=== PATIENT | male | born 1950 | race Caucasian/White ===

== ENCOUNTER 2019-05-21 07:00 | Outpatient (CLI) | payer MEDICARE, SELFPAY ==
--- NOTE | 2019-05-21 13:47 | SUR.OPER ---
Patient brought to GI Lab. Instructions for patient undergoing Capsule Endoscopy reviewed with patient. Consent form signed. Sensor array applied to patient's abdomen and connected to recorded. Patient swallowed capsule with 12 ozs of water infused with Simethicone. Patient instructed they may have clear liquids at 0830 this AM and eat or drink at 1030 this AM. Patient instructed to return to GI Lab at 1500 this afternoon for removal of recording device and to call [phone] or to return to the hospital if any nausea and vomiting or abdominal pain is experienced.
--- NOTE | 2019-05-21 15:10 | SUR.OPER ---
Patient arrived to GI lab at 1500 with belt on side of hip. Asked patient if the belt was around his abdomen during the day, and patients states he doesn't know, he states he had no questions.
== END 2019-05-21 07:01 | disposition home or self-care (01) ==
PROVIDERS: PCP Internal Medicine; Visit Provider Internal Medicine Gastroenterology
PROC: 0DJ07ZZ Inspection of Upper Intestinal Tract, Via Natural or Artificial Opening (ICD-10-PCS; CPT 91110; principal; 2019-05-21 07:00)
DX: D50.9 Iron deficiency anemia, unspecified (principal)
CPT/HCPCS: 91110

== ENCOUNTER → 2019-09-05 07:35 | Outpatient (CLI) | payer MEDICARE, SELFPAY ==
--- NOTE | ~2019-09-05 | MR_ITS ---
EXAMINATION: MR forearm RT wo con DATE: 09/05/2019 08:48 INDICATION: Right forearm pain. Radial nerve lesion. Soft tissue abnormality. TECHNIQUE: Magnetic resonance imaging (MRI) of the right forearm was performed without intravenous co ntrast. Sequences included sagittal and coronal T1-weighted FSE and STIR FSE and axial T1-weighted FS E and T2-weighted FS FSE. COMPARISON: Right forearm MRI 08/03/2015, right elbow radiographs 08/26/2019 FINDINGS: Bone alignment is normal. No fracture. There is a skin marker at the dorsal radial aspect o f the proximal forearm. Brachialis tendon is normal. There is moderate biceps tendinopathy. There is an enthesophyte at the radial attachment. There is moderate bicipitoradial bursitis. The common flexo r tendon and common extensor tendon are normal, but sensitivity is decreased by the large field-of-vi ew. The muscles demonstrate normal signal intensity. There is no elbow joint effusion. IMPRESSION: 1. Moderate biceps tendinopathy. 2. Moderate bicipitoradial bursitis. Reviewed, dictated and finalized at location A.
== END ==
PROVIDERS: PCP Internal Medicine; Visit Provider Orthopaedic Surgery
DX: G56.31 Lesion of radial nerve, right upper limb (principal); M75.21 Bicipital tendinitis, right shoulder
CPT/HCPCS: 73218

== ENCOUNTER 2020-01-29 09:56 | Outpatient (CLI) | payer MEDICARE, SELFPAY ==
[2020-01-29 10:30] LABS: Basophils Percent Auto 0.2 % (0.2-1.2); Eosinophils Percent Auto 0.1 % (0-4.4); Hematocrit 43.9 % (42.0-52.0); Hemoglobin 14.6 g/dL (14.0-18.0); Immature Granulocyte Absolute 0.21 K/mm3 (0.00-0.031); Immature Granulocyte Percent A 0.9 % (0-0.5); Lymphocytes Absolute Auto 1.39 K/mm3 (0.9-3.2); Lymphocytes Percent Auto 5.8 % (18.3-44.2); Mean Corpuscular HGB Conc 33.3 g/dl (32-36); Mean Corpuscular Hemoglobin 31.3 pg (26-34); Mean Platelet Volume 9.8 fl (7.4-10.4); Monocytes Absolute Auto 1.6 K/mm3 (0.1-0.6); Monocytes Percent Auto 6.6 % (2.6-8.5); Neutrophils Absolute Auto 20.9 K/mm3 (1.3-6.7); Neutrophils Percent Auto 86.4 % (45.5-73.1); Platelet Count Result 260 k/mm3 (150-375); Red Blood Count 4.67 M/mm3 (4.6-6.20); Red Cell Distribution Width 13.8 % (11.5-14.5); White Blood Count 24.1 K/mm3 (4.5-10.0)
[2020-01-29 15:30] LABS: Iron 95 ug/dL (49-181)
[2020-01-29 15:38] LABS: Alanine Aminotransferase 27 U/L (4-50); Albumin Level 3.9 g/dL (3.5-5.1); Alkaline Phosphatase 110 U/L (38-126); Anion Gap 13.3 mmol/L (7-16); Aspartate Amino Transferase 21 U/L (17-59); Bilirubin,Total 1.1 mg/dL (0.2-1.3); Blood Urea Nitrogen 27 mg/dL (9-20); Calcium 9.1 mg/dL (8.4-10.2); Carbon Dioxide 25 mmol/L (22-30); Chloride 103 mmol/L (98-107); Estimated Glomerular Filt Rate 60; Glucose 114 mg/dL (75-110); Potassium 4.3 mmol/L (3.4-5.0); Sodium 137 mmol/L (137-145)
[2020-01-29 15:39] LABS: Percent Iron Saturation 28 % (20-50)
[2020-01-29 16:33] LABS: Folic Acid 17.5 ng/mL (2.76->20)
== END 2020-01-29 09:57 | disposition home or self-care (01) ==
PROVIDERS: PCP Internal Medicine; Visit Provider Internal Medicine Hematology & Oncology
DX: D50.9 Iron deficiency anemia, unspecified (principal)
CPT/HCPCS: 36415; 80053; 82607; 82728; 82746; 83540; 83550; 85025

== ENCOUNTER 2020-04-04 01:16 | Outpatient (CLI) | payer MEDICARE, SELFPAY ==
[2020-04-04 18:11] LABS: SARS-CoV-2 RNA PCR Negative
== END 2020-04-04 01:17 | disposition home or self-care (01) ==
LOC: ANHCOVIDDT 01:16
PROVIDERS: PCP Internal Medicine; Visit Provider Orthopaedic Surgery
DX: Z01.812 Encounter for preprocedural laboratory examination (principal); Z20.828 Contact with and (suspected) exposure to other viral communicable diseases
CPT/HCPCS: 87635; C9803; U0003

== ENCOUNTER 2020-04-04 09:31 | Outpatient (CLI) | payer MEDICARE, SELFPAY ==
--- NOTE | 2020-04-04 09:35 | ECG_ITS ---
Measurements Intervals [place] Rate: 73 P: 30 MA: 196 QRS: -38 QRSD: 100 T: -6 QT: 374 QTc: 413 Interpretive Statements SINUS RHYTHM LEFT AXIS DEVIATION VOLTAGE CRITERIA FOR LVH BORDERLINE R WAVE PROGRESSION, ANTERIOR LEADS BORDERLINE T WAVE ABNORMALITY- INFERIOR LEADS BORDERLINE ECG Electronically Signed On 04-04-2020 10:21:40 CDT by Thuan Arceo D.O.
[2020-04-04 10:20] LABS: Hematocrit 35.3 % (42.0-52.0); Hemoglobin 11.9 g/dL (14.0-18.0)
[2020-04-04 10:30] LABS: Anion Gap 6 mmol/L (8-16); Blood Urea Nitrogen 15 mg/dL (9-20); Carbon Dioxide 29 mmol/L (22-30); Chloride 105 mmol/L (98-107); Estimated Glomerular Filt Rate 40; Glucose 105 mg/dL (75-110); Potassium 4.3 mmol/L (3.4-5.0); Sodium 140 mmol/L (137-145)
== END 2020-04-04 09:32 | disposition home or self-care (01) ==
PROVIDERS: Anesthesiology; PCP Internal Medicine; Visit Provider Orthopaedic Surgery
DX: Z01.818 Encounter for other preprocedural examination (principal); I10 Essential (primary) hypertension; N18.6 End stage renal disease; D50.9 Iron deficiency anemia, unspecified
CPT/HCPCS: 36415; 80048; 85014; 85018; 93005

== ENCOUNTER 2020-04-06 02:33 | Day surgery (SDC) | payer MEDICARE, SELFPAY ==
[2020-03-30 11:24] VITALS: BMI 25.4
[2020-04-06] VITALS (9 sets, daily range): BP systolic 103–142; BP diastolic 62–93; PULSE 74–89; RESP 13–22; TEMP 36.3–36.9; O2SAT 94–100; BMI 26.0
--- NOTE | 2020-04-06 07:27 | WPDHPUPDATE1 ---
History and Physical Update Update Date/Time: 04/06/20 07:27 History and Physical has been reviewed, including an updated exam of the patient. There are NO changes in the patient's condition. Risks, benefits, and alternatives have been discussed and questions answered. Patient agrees to proceed with procedure.
--- NOTE | 2020-04-06 07:35 | SUR.PREOP ---
9925; SPOKE TO DR ANG. DO NOT GIVE TYLENOL NOR CELEBREX TO PT DUE TO RENAL DISEASE.
[2020-04-06] MEDS: LACTATED RINGERS 1,000 ML 30 ML IV CONT ×2 (07:48→10:26)
--- NOTE | 2020-04-06 07:55 | WPDANESEPPF ---
Anes - Initial Pre Proc Eval Procedure: Operation Date: 04/06/20 09:00 Proposed Procedures p Right Knee Arthroscopy, Proceed As Indicated - Celestine Brown MD Date/Time: 04/06/20 07:55 Surgeon: Celestine Brown MD Pre Op Diagnosis: right medial meniscus tear, mild knee DJD Patient Data Age: 69 Gender: M Height: 5 ft 7 in Weight: 73.63 kg Allergies Allergy/AdvReac Type Severity Reaction Status Date / Time No Known Allergies Allergy Verified 04/06/20 07:32 Home Medications Medication Instructions Recorded Confirmed Type albuterol sulfate [Ventolin HFA] 1 - 2 puff INHALATION QID PRN 05/07/19 04/06/20 History ascorbic acid (vitamin C) [Vitamin 500 mg PO DAILY 05/07/19 04/06/20 History C] atorvastatin 40 mg PO DAILY 05/07/19 04/06/20 History cholecalciferol (vitamin D3) 25 mcg PO DAILY 05/07/19 04/06/20 History [Vitamin D3] clopidogrel [Plavix] 75 mg PO DAILY 05/07/19 04/06/20 History cyanocobalamin (vitamin B-12) 1,000 mcg PO DAILY 05/07/19 04/06/20 History [Vitamin B-12] ferrous sulfate [Iron (ferrous 325 mg PO BID 05/07/19 04/06/20 History sulfate)] folic acid 1 mg PO DAILY 05/07/19 04/06/20 History levothyroxine [Synthroid] 75 mcg PO DAILY 05/07/19 04/06/20 History magnesium 250 mg PO DAILY 05/07/19 04/06/20 History omega 8-fkh-shd-fish oil [Fish Oil] 1 cap PO DAILY 05/07/19 04/06/20 History pantoprazole [Protonix] 20 mg PO BID 05/07/19 04/06/20 History pregabalin [Lyrica] 75 mg PO BID 05/07/19 04/06/20 History budesonide-formoterol [Symbicort] 2 inh INHALATION BID 07/21/19 04/06/20 History chlorhexidine gluconate 4 % 1 applic TOPICAL ONCE #237 ml 03/29/20 03/30/20 Rx topical liquid Patient hx anesthesia problems: none Family hx anesthesia problems: none PMFSH Past Medical History Medical History Biceps tendonitis on right COPD (chronic obstructive pulmonary disease) Diabetes mellitus End stage renal disease GERD (gastroesophageal reflux disease) High cholesterol Hypertension ERMELINDA (iron deficiency anemia) Mass of right forearm Pneumonia Radial tunnel syndrome of right upper extremity Rotator cuff tear arthropathy Stomach ulcer TIA (transient ischemic attack) Surgical History Surgical History History of esophagectomy Family History Family History Other Family history of cardiovascular disease Family history of malignant neoplasm Hypertension Social History Social History Smoking status: Former smoker Smoking end date: 07/01/90 Additional smoking assessment comments: STATES HX OF 4PK/DAY - QUITE 07/11/1999 Alcohol intake: never Substance use: never Living arrangements: with family Gender identity (if verbalized by the patient): Male Spiritual care concerns: No Anes - Eval Final PreProcedure Day of Procedure 04/06/20 07:55 Patient weight: overweight Heart: regular rate and rhythm Lungs: clear to auscultation Airway: Mallampati scale class II Neurological: alert and oriented Last oral intake: >/= 8 hours ASA classification: III Emergent: no Anesthetic plan: proceed Anesthesia type and monitoring: general ETT and standard monitoring Informed Consent: The patient's anesthetic plan and its attendant risks and benefits were discussed with the patient/family/POA. Questions were solicited and answers provided to the satisfaction of the patient/family/POA.
[2020-04-06] MEDS: ceFAZolin 2 GM/D5W 50 ML 2 GM/50 ML BAG IVPB (09:00)
--- NOTE | 2020-04-06 10:26 | PM.PROC ---
Procedure Note - Detailed Date of procedure: 04/06/20 Pre-op diagnosis: right medial meniscus tear, mild knee DJD Post-op diagnosis: other (medial meniscus tear, lateral meniscus tear, chondromalacia, synovitis) Procedure performed: RIGHT KNEE SCOPE WITH PARTIAL MEDIAL MENISCECTOMY AND MAJOR SYNEVECTOMY Description of procedure: PATIENT WAS TAKEN TO THE OR. THE RIGHT LEG WAS PREPPED AND DRAPED STERILE. TROCARS WERE PLACED IN THE USUAL FASHION. CAMERA WAS INTRODUCED. THERE WAS CHONDROMALACIA TO THE PATELLA FEMORAL JOINT. THERE WAS A LOT OF SYNOVITIS IN ALL COMPARTMENTS. THE MEDIAL COMPARTMENT SHOWED CHONDROMALACIA TO THE MED FEMORAL CONDYLE. A SHAVER WAS USED TO PREFORM A CHONDROPLASTY. THERE WAS A COMPLEX MEDIAL MENISCUS TEAR. THE TEAR EXTENDED FROM THE MENISCAL ROOT TO THE POSTERIOR HORN MAIN BODY. THE TEAR WAS RESECTED WITH A BITER AND A SHAVER DOWN TO A SMOOTH BASE. ABOUT 25% OF THE MENISCUS WAS REMOVED. THE ACL WAS INTACT. THE LATERAL MENISCUS WAS NOT TORN. THE LAT COMPARTMENT HAD NO SIGNIFICANT CHONDROMALACIA. THE PATELLO FEMORAL JOINT UNDERWENT CHONDROPLASTY. THERE WAS GRADE 3 CHONDROMALACIA IN MOST OF THE TROCHLEA AND PART OF THE PATELLA. THERE WAS AN AREA OF FULL THICKNESS CARTILAGE DEFECT. SYNOVECTOMY WAS PREFORMED IN THE SUPERIOR MEDIAL COMPARTMENT AND IN HOFFA'S SYNOVIUM. THE PATELLA TRACKED NORMALLY WITHIN THE TROCHLEA. THE WOUNDS WERE APPROXIMATED WITH 4.0 NYLON. STERILE DRESSING WAS APPLIED. PATIENT WAS EXTUBATED. Anesthesia: GLMA Surgeon: Celestine Brown MD Estimated blood loss (mL): 5 Complications: No immediate complications Condition: stable Disposition: PACU
[2020-04-06] MEDS: fentaNYL CITRATE INJ (*CRX) 100 MCG/2 ML VIAL 25 MCG IV PUSH ×10 (10:45→11:06)
[2020-04-06] MEDS: ONDANSETRON INJ 4 MG/2 ML VIAL IV PUSH (11:31)
== END 2020-04-06 12:40 | disposition home or self-care (01) ==
PROVIDERS: PCP Internal Medicine; Visit Provider Orthopaedic Surgery
PROC: (CPT 29870; principal; 2020-04-06 09:00)
DX: S83.231A Complex tear of medial meniscus, current injury, right knee, initial encounter (principal); W17.89XA Other fall from one level to another, initial encounter; M65.861 Other synovitis and tenosynovitis, right lower leg; M94.261 Chondromalacia, right knee; M17.11 Unilateral primary osteoarthritis, right knee; I12.0 Hypertensive chronic kidney disease with stage 5 chronic kidney disease or end stage renal disease; E11.22 Type 2 diabetes mellitus with diabetic chronic kidney disease; N18.6 End stage renal disease; J44.9 Chronic obstructive pulmonary disease, unspecified; E78.00 Pure hypercholesterolemia, unspecified; K21.9 Gastro-esophageal reflux disease without esophagitis; D50.9 Iron deficiency anemia, unspecified; Z86.73 Personal history of transient ischemic attack (TIA), and cerebral infarction without residual deficits; Z87.891 Personal history of nicotine dependence; Z79.02 Long term (current) use of antithrombotics/antiplatelets
CPT/HCPCS: 29881; 29876; 36415; 80048; 85014; 85018; 87635; 93005; C9803; J0330; J0690; J2370; J2405; J2704; J3010; J7120; U0003

== ENCOUNTER → 2020-05-07 09:11 | Outpatient (CLI) | payer MEDICARE, SELFPAY ==
--- NOTE | ~2020-05-07 | MR_ITS ---
EXAMINATION: MR knee RT wo con DATE: 05/07/2020 10:15 INDICATION: Right knee pain. TECHNIQUE: Magnetic resonance imaging (MRI) of the right knee was performed without intravenous contr ast. Sequences included axial PD-weighted FS FSE, coronal PD-weighted FSE and PD-weighted FS FSE, sag ittal PD-weighted FSE, and sagittal T2-weighted FS FSE. COMPARISON: Right knee radiographs 05/05/2020 FINDINGS: Medial compartment: There is maceration body and posterior horn of medial meniscus. There is full-thickness cartilage los s of tibial condyle involving the central and medial articular surface with moderate subchondral uli a-like signal intensity and subchondral cysts. There is full thickness cartilage loss of femoral cond yle involving the central, medial, and posterior articular surface with cortical remodeling and moder ate subchondral edema-like marrow signal intensity. Osteophytes are noted. Lateral compartment: Meniscus is normal. There is cartilage surface irregularity of femoral condyle and tibial condyle. Th ere is shallow partial-thickness cartilage loss of tibial condyle posteriorly. Patellofemoral compartment: There is deep partial thickness cartilage loss of patellar medial and lateral facets with minimal sub chondral edema-like marrow signal intensity. There is deep partial thickness cartilage loss of centra l trochlea. Ligaments and tendons: The anterior and posterior cruciate ligaments are intact. There are changes of prior sprains of media l collateral ligament and fibular collateral ligament characterized by increased signal intensity. Th ere is a partial tear of semimembranosus tendon with adjacent small hematoma. There is mild patellar tendinopathy. Fluid: There is a large heterogeneous knee joint effusion. There is trace fluid in a Fernández's cyst. There is edema about the knee. There is moderate prepatellar and superficial infrapatellar bursitis. IMPRESSION: 1. Severe chondrosis of medial compartment, moderate chondrosis of patellofemoral compartment, and mi ld chondrosis of lateral compartment. 2. Maceration of medial meniscus. 3. Large heterogeneous knee joint effusion. 4. Partial tear of semimembranosus tendon with adjacent small hematoma. Reviewed, dictated and finalized at location A. ER IMPRESSION: 1. Severe chondrosis of medial compartment, moderate chondrosis of patellofemor al compartment, and mild chondrosis of lateral compartment. 2. Maceration of medial meniscus. 3. Large heterogeneous knee joint effusion. 4. Partial tear of semimembranosus tendon with adjacent small hematoma.
== END ==
PROVIDERS: PCP Internal Medicine; Visit Provider Nurse Practitioner Family
DX: M25.461 Effusion, right knee (principal)
CPT/HCPCS: 73721

== ENCOUNTER 2020-06-20 10:25 | Outpatient (CLI) | payer MEDICARE, SELFPAY ==
[2020-06-20 11:08] LABS: SARS-CoV-2 Ag Negative (Negative)
== END 2020-06-20 10:26 | disposition home or self-care (01) ==
LOC: CHSLAB 10:32
PROVIDERS: PCP Internal Medicine; Visit Provider Internal Medicine
DX: R50.9 Fever, unspecified (principal); R06.02 Shortness of breath; Z20.828 Contact with and (suspected) exposure to other viral communicable diseases
CPT/HCPCS: 87426

== ENCOUNTER 2020-08-08 11:46 | Outpatient (CLI) | payer MEDICARE, SELFPAY ==
[2020-08-08 12:14] LABS: Basophils Percent Auto 0.2 % (0.2-1.2); Eosinophils Absolute Auto 0.1 K/mm3 (0-0.3); Eosinophils Percent Auto 0.8 % (0-4.4); Hematocrit 45.7 % (42.0-52.0); Hemoglobin 14.9 g/dL (14.0-18.0); Immature Granulocyte Absolute 0.15 K/mm3 (0.00-0.031); Immature Granulocyte Percent A 0.9 % (0-0.5); Lymphocytes Absolute Auto 1.64 K/mm3 (0.9-3.2); Lymphocytes Percent Auto 9.5 % (18.3-44.2); Mean Corpuscular HGB Conc 32.6 g/dl (32-36); Mean Corpuscular Hemoglobin 30.5 pg (26-34); Mean Corpuscular Volume 93.5 fl (80-100); Mean Platelet Volume 9.9 fl (7.4-10.4); Monocytes Absolute Auto 1.2 K/mm3 (0.1-0.6); Neutrophils Absolute Auto 14.1 K/mm3 (1.3-6.7); Neutrophils Percent Auto 81.6 % (45.5-73.1); Platelet Count Result 293 k/mm3 (150-375); Red Blood Count 4.89 M/mm3 (4.6-6.20); White Blood Count 17.3 K/mm3 (4.5-10.0)
[2020-08-08 13:20] LABS: Alanine Aminotransferase 26 U/L (4-50); Albumin Level 3.9 g/dL (3.5-5.1); Alkaline Phosphatase 120 U/L (38-126); Anion Gap 4 mmol/L (8-16); Aspartate Amino Transferase 22 U/L (17-59); Bilirubin,Total 1.2 mg/dL (0.2-1.3); Blood Urea Nitrogen 22 mg/dL (9-20); Calcium 9.2 mg/dL (8.4-10.2); Carbon Dioxide 31 mmol/L (22-30); Chloride 103 mmol/L (98-107); Estimated Glomerular Filt Rate 50; Glucose 97 mg/dL (75-110); Lactate Dehydrogenase 501 U/L (313-618); Potassium 4.1 mmol/L (3.4-5.0); Sodium 138 mmol/L (137-145)
== END 2020-08-08 11:47 | disposition home or self-care (01) ==
LOC: ANHLAB 11:48
PROVIDERS: PCP Internal Medicine; Visit Provider Internal Medicine Hematology & Oncology
DX: C15.9 Malignant neoplasm of esophagus, unspecified (principal)
CPT/HCPCS: 36415; 80053; 83615; 85025

== ENCOUNTER 2020-10-20 11:39 | Outpatient (CLI) | payer MEDICARE, SELFPAY ==
[2020-10-20 14:27] LABS: Basophils Absolute Auto 0.1 K/mm3 (0.0-0.1); Basophils Percent Auto 0.3 % (0.2-1.2); Eosinophils Absolute Auto 0.2 K/mm3 (0-0.3); Eosinophils Percent Auto 1.4 % (0-4.4); Hemoglobin 13.8 g/dL (14.0-18.0); Immature Granulocyte Percent A 0.7 % (0-0.5); Lymphocytes Absolute Auto 1.65 K/mm3 (0.9-3.2); Lymphocytes Percent Auto 10.8 % (18.3-44.2); Mean Corpuscular HGB Conc 33.7 g/dl (32-36); Mean Corpuscular Hemoglobin 31.2 pg (26-34); Mean Corpuscular Volume 92.8 fl (80-100); Mean Platelet Volume 10.2 fl (7.4-10.4); Monocytes Absolute Auto 1.6 K/mm3 (0.1-0.6); Monocytes Percent Auto 10.1 % (2.6-8.5); Neutrophils Absolute Auto 11.7 K/mm3 (1.3-6.7); Neutrophils Percent Auto 76.7 % (45.5-73.1); Platelet Count Result 336 k/mm3 (150-375); Red Blood Count 4.42 M/mm3 (4.6-6.20); Red Cell Distribution Width 13.5 % (11.5-14.5); White Blood Count 15.3 K/mm3 (4.5-10.0)
[2020-10-20 14:29] LABS: Urine Cotinine NEGATIVE
[2020-10-20 14:41] LABS: Albumin Level 4.1 g/dL (3.5-5.1); Anion Gap 9 mmol/L (8-16); Blood Urea Nitrogen 12 mg/dL (9-20); Calcium 8.6 mg/dL (8.4-10.2); Carbon Dioxide 28 mmol/L (22-30); Chloride 102 mmol/L (98-107); Estimated Glomerular Filt Rate 60; Glucose 92 mg/dL (75-110); Potassium 3.7 mmol/L (3.4-5.0); Sodium 139 mmol/L (137-145)
[2020-10-20 15:00] LABS: Hemoglobin A1C 5.6 % (<5.7)
== END 2020-10-20 11:40 | disposition home or self-care (01) ==
LOC: ANHSURGERY 11:42
PROVIDERS: PCP Internal Medicine; Visit Provider Orthopaedic Surgery
DX: M17.11 Unilateral primary osteoarthritis, right knee (principal); Z01.818 Encounter for other preprocedural examination
CPT/HCPCS: 80048; 80307; 82040; 83036; 85025; 87070

== ENCOUNTER → 2020-11-05 01:48 | Outpatient (CLI) | payer MEDICARE, SELFPAY ==
[2020-11-06 14:53] LABS: SARS-CoV-2 RNA PCR Negative
== END ==
PROVIDERS: PCP Internal Medicine; Visit Provider Orthopaedic Surgery
DX: Z01.812 Encounter for preprocedural laboratory examination (principal); Z20.822 Contact with and (suspected) exposure to COVID-19
CPT/HCPCS: C9803; U0003; U0005

== ENCOUNTER 2020-11-09 01:10 | Day surgery (SDC) | payer MEDICARE, SELFPAY ==
[2020-10-20 12:10] VITALS: BP 117/72; PULSE 95; RESP 18; TEMP 36.9; O2SAT 97; BMI 26.2
--- NOTE | 2020-11-07 16:23 | PM.IMHP ---
H&P: HPI History of Present Illness Date/Time: 11/07/20 16:23 70-year-old male patient of Dr. Costello who presents today for a right [place] partial knee replacement versus total knee replacement. He had a left Glas[place] partial knee replacement done approximately 8 years ago and is doing very well. He has had progression of the medial compartment arthritis in the right knee to the point now where he is down to [id number]. He has severe symptoms on a daily basis. He is a very active 70-year-old. He is on Plavix long-term and unable take anti-inflammatories. He has reached a point where he feels he would rather proceed with surgery rather continue nonsurgical treatment. Patient's right knee has been evaluated with x-rays as well as MRI scan and it is felt that he would be a good candidate for partial knee replacement on the right as he has had on the left. <WOJCIECH Harding - Last Filed: 11/07/20 16:32> Chief Complaint: right knee DJD <WOJCIECH Harding - Last Filed: 11/07/20 16:32> Review of Systems Review of Systems: All systems reviewed & are unremarkable except as noted in HPI and below <WOJCIECH Harding - Last Filed: 11/07/20 16:32> [facility] Past Medical History Medical History: Medical History (Updated 11/09/20 @ 11:16 by Shahab Acuña DO) Biceps tendonitis on right COPD (chronic obstructive pulmonary disease) Degenerative joint disease of knee Diabetes mellitus End stage renal disease In on dialysis for 3 weeks. No problems since then. Fever GERD (gastroesophageal reflux disease) High cholesterol Hypertension ERMELINDA (iron deficiency anemia) Knee injury Mass of right forearm Pneumonia Radial tunnel syndrome of right upper extremity Rotator cuff tear arthropathy Stomach ulcer Strain of elbow and forearm TIA (transient ischemic attack) Vision changes <WOJCIECH Harding - Last Filed: 11/07/20 16:32> Surgical History Surgical History: Surgical History History of esophagectomy <WOJCIECH Harding - Last Filed: 11/07/20 16:32> Family History Family History: Family History Other Family history of cardiovascular disease Family history of malignant neoplasm Hypertension <WOJCIECH Harding - Last Filed: 11/07/20 16:32> Social History Social History: Social History Smoking packs per day: 4 Smoking cigarettes per day: 80.0 Years smoked: 26 Smoking pack-years: 104.00 Smoking status: Former smoker Smoking end date: 12/30/99 Additional smoking assessment comments: STATES HX OF 4PK/DAY - QUITE 07/11/1999 Alcohol intake: former Alcohol use details: DRANK 1 CASE BEER/DAY, QUIT 1999 Substance use: never Living arrangements: with family Additional living arrangements comments: [facility] Gender identity (if verbalized by the patient): Male Spiritual care concerns: No <WOJCIECH Harding - Last Filed: 11/07/20 16:32> Meds Home Medications and Allergies Home medications: Home Medications Medication Instructions Recorded Confirmed Type albuterol sulfate [Ventolin HFA] 1 - 2 puff INHALATION QID PRN 05/07/19 11/09/20 History atorvastatin 40 mg PO DAILY 05/07/19 11/09/20 History clopidogrel [Plavix] 75 mg PO DAILY 05/07/19 11/09/20 History levothyroxine [Synthroid] 75 mcg PO DAILY 05/07/19 11/09/20 History pantoprazole [Protonix] 20 mg PO BID 05/07/19 11/09/20 History pregabalin [Lyrica] 75 mg PO BID 05/07/19 11/09/20 History budesonide-formoterol [Symbicort] 2 inh INHALATION DAILY 07/21/19 11/09/20 History ascorbic acid (vitamin C) 500 mg PO DAILY 10/20/20 11/09/20 History cyanocobalamin (vitamin B-12) 1,000 mcg PO DAILY 10/20/20 11/09/20 History ferrous sulfate [iron] 325 mg PO DAILY 10/20/20 11/09/20 History folic acid 1 mg PO DAILY 10/20/20 11/09/20 History magnesium
[2020-11-09] VITALS (9 sets, daily range): BP systolic 114–138; BP diastolic 66–83; PULSE 60–87; RESP 10–18; TEMP 36.1–36.2; O2SAT 96–100; BMI 25.4
--- NOTE | ~2020-11-09 | XR_ITS ---
XR knee RT 2V DATE: 11/09/2020 15:33 INDICATION: Partial right knee replacement TECHNIQUE: Portable postoperative AP and lateral views COMPARISON: 05/05/2020 right knee FINDINGS: There is medial compartment right knee arthroplasty. There is expected intra-articular gas and mild subcutaneous emphysema postoperatively. No fracture or dislocation or joint effusion. No periosteal reaction or bone destruction. IMPRESSION: Medial compartment joint replacement Reviewed, dictated and finalized at location A.
--- NOTE | ~2020-11-09 | XR_ITS ---
EXAMINATION: XR surgery orthopedic DATE: 11/09/2020 14:52 INDICATION: Right knee pain for partial versus total right knee replacement. TECHNIQUE: 1 fluoroscopic image of the right knee was obtained during procedure performed by Dr. Darlene jernigan. Radiologist was not present for the imaging or procedure. The amount of fluoroscopy time used du ring this procedure was 0.5 minutes. COMPARISON: 05/05/2020 FINDINGS: Images demonstrate osteotomy of the articular surface at the medial tibial plateau and placement of a trial tibial component for a medial unicompartmental arthroplasty. Metallic guide pin is seen in the underlying medial tibial plateau. IMPRESSION: 1. Fluoroscopy utilized during a medial unicompartmental arthroplasty at the right knee. See procedur e note for further detail. Reviewed, dictated and finalized at location A. IMPRESSION: 1. Fluoroscopy utilized during a medial unicompartmental arthroplasty at the [facility] knee. See procedure note for further detail.
--- NOTE | 2020-11-09 08:39 | WPDANESEPPF ---
Anes - Initial Pre Proc Eval Procedure: Operation Date: 11/09/20 12:00 Proposed Procedures p Partial Right Knee Replacement Versus Total Knee Replacement - Stephen Peterson MD <Mahin Veloz MD - Last Filed: 11/09/20 08:39> Date/Time: 11/09/20 08:39 <Mahin Veloz MD - Last Filed: 11/09/20 08:39> Surgeon: Stephen Peterson MD <Mahin Veloz MD - Last Filed: 11/09/20 08:39> Pre Op Diagnosis: Severe medial compartment OA, Right knee <Mahin Veloz MD - Last Filed: 11/09/20 08:39> Patient Data Age: 70 Gender: M Height: 5 ft 6.5 in Weight: 74.7 kg <Mahin Veloz MD - Last Filed: 11/09/20 08:39> Last Vital Signs Temp 98.4 F 10/20/20 12:10 Pulse 95 10/20/20 12:10 Resp 18 10/20/20 12:10 BP 117/72 10/20/20 12:10 Pulse Ox 97 10/20/20 12:10 <Mahin Veloz MD - Last Filed: 11/09/20 08:39> Allergies Allergy/AdvReac Type Severity Reaction Status Date / Time No Known Allergies Allergy Verified 11/09/20 11:05 <Mahin Veloz MD - Last Filed: 11/09/20 08:39> Home Medications Medication Instructions Recorded Confirmed Type albuterol sulfate [Ventolin HFA] 1 - 2 puff INHALATION QID PRN 05/07/19 11/09/20 History atorvastatin 40 mg PO DAILY 05/07/19 11/09/20 History clopidogrel [Plavix] 75 mg PO DAILY 05/07/19 11/09/20 History levothyroxine [Synthroid] 75 mcg PO DAILY 05/07/19 11/09/20 History pantoprazole [Protonix] 20 mg PO BID 05/07/19 11/09/20 History pregabalin [Lyrica] 75 mg PO BID 05/07/19 11/09/20 History budesonide-formoterol [Symbicort] 2 inh INHALATION DAILY 07/21/19 11/09/20 History ascorbic acid (vitamin C) 500 mg PO DAILY 10/20/20 11/09/20 History cyanocobalamin (vitamin B-12) 1,000 mcg PO DAILY 10/20/20 11/09/20 History ferrous sulfate [iron] 325 mg PO DAILY 10/20/20 11/09/20 History folic acid 1 mg PO DAILY 10/20/20 11/09/20 History magnesium 250 mg PO DAILY 10/20/20 11/09/20 History omega-3 fatty acids-vitamin E 1 cap PO DAILY 10/20/20 11/09/20 History [Fish Oil] <Mahin Veloz MD - Last Filed: 11/09/20 08:39> Patient hx anesthesia problems: none <Shahab Acuña DO - Last Filed: 11/09/20 11:16> Family hx anesthesia problems: none <Shahab Acuña DO - Last Filed: 11/09/20 11:16> [facility] Past Medical History Medical History: Medical History (Updated 11/09/20 @ 11:16 by Shahab Acuña DO) Biceps tendonitis on right COPD (chronic obstructive pulmonary disease) Degenerative joint disease of knee Diabetes mellitus End stage renal disease In on dialysis for 3 weeks. No problems since then. Fever GERD (gastroesophageal reflux disease) High cholesterol Hypertension ERMELINDA (iron deficiency anemia) Knee injury Mass of right forearm Pneumonia Radial tunnel syndrome of right upper extremity Rotator cuff tear arthropathy Stomach ulcer Strain of elbow and forearm TIA (transient ischemic attack) Vision changes <Mahin Veloz MD - Last Filed: 11/09/20 08:39> Surgical History Surgical History: Surgical History History of esophagectomy <Mahin Veloz MD - Last Filed: 11/09/20 08:39> Family History Family History: Family History Other Family history of cardiovascular disease Family history of malignant neoplasm Hypertension <Mahin Veloz MD - Last Filed: 11/09/20 08:39> Social History Social History: Social History Smoking packs per day: 4 Smoking cigarettes per day: 80.0 Years smoked: 26 Smoking pack-years: 104.00 Smoking status: Former smoker Smoking end date: 12/30/99 Additional smoking assessment comments: STATES HX OF 4PK/DAY - QUITE 07/11/1999 Alcohol intake: former Alcohol use details: DRANK 1 CASE BEER/DAY, QUIT 1999 Substance use: never Living a
[2020-11-09] MEDS: LACTATED RINGERS 1,000 ML 30 ML IV CONT ×2 (10:25→15:18)
[2020-11-09] MEDS: TRANEXAMIC ACID 1,000MG/ISO100 1,000 MG/100 ML BAG 200 MG IVPB (10:31)
[2020-11-09] MEDS: ACETAMINOPHEN 500 MG TABLET 1000 MG PO ×3 (10:32→23:24)
[2020-11-09 10:45] LABS: Hemoglobin 14.9 g/dL (14.0-18.0); Mean Corpuscular HGB Conc 33.1 g/dl (32-36); Mean Corpuscular Hemoglobin 31.2 pg (26-34); Mean Corpuscular Volume 94.1 fl (80-100); Mean Platelet Volume 9.6 fl (7.4-10.4); Platelet Count Result 289 k/mm3 (150-375); Red Blood Count 4.78 M/mm3 (4.6-6.20); Red Cell Distribution Width 13.8 % (11.5-14.5); White Blood Count 10.5 K/mm3 (4.5-10.0)
--- NOTE | 2020-11-09 11:48 | WPDHPUPDATE1 ---
History and Physical Update Update Date/Time: 11/09/20 11:48 History and Physical has been reviewed, including an updated exam of the patient. There are NO changes in the patient's condition. Risks, benefits, and alternatives have been discussed and questions answered. Patient agrees to proceed with procedure.
[2020-11-09] MEDS: ceFAZolin 2 GM/D5W 50 ML 2 GM/50 ML BAG IVPB (12:05)
[2020-11-09] MEDS: ceFAZolin SODIUM 1 GM VIAL 3 GM IRRIGATION (12:58)
[2020-11-09] MEDS: TRANEXAMIC ACID 1,000 MG/10 ML AMPUL 1000 MG IV PUSH (14:30)
[2020-11-09] MEDS: ceFAZolin SODIUM 1 GM VIAL IV PUSH (14:30)
--- NOTE | 2020-11-09 15:32 | PM.PROC ---
Procedure Note - Detailed Date of procedure: 11/09/20 Pre-op diagnosis: Severe medial compartment OA, Right knee Post-op diagnosis: same Procedure performed: Ox word partial knee replacement medial compartment right knee Description of procedure: Patient was brought to the operating room and general anesthesia was administered. The right knee was prepped draped usual fashion. He received 2 g Ancef weight based vancomycin 1 g of tranexamic acid preoperatively. The right knee was supported on the special thigh gupta for the [place] partial knee replacement. Limb was exsanguinated tourniquet elevated to 250 mmHg. A 4 in longitudinal incision was made from just superior to the superior pole of the patella medially down to the medial to the tibial tubercle. Arthrotomy made in line with the incision with a 1 cm vastus split at the level of superior pole of patella. Small amount of the infrapatellar fat pad was excised. Lateral compartment looked normal. The ACL looked normal. Osteophytes from around the intercondylar notch removed and tiny osteophytes from around the medial femoral condyle were removed. The patella had almost normal articular cartilage. There was some chondral thinning of the central aspect of the groove of the trochlea. The 3 mm spoon fit the medial compartment. We sized it to a medium with the medium spoon. We inserted the 3 mm spoon and linked this with the 4 mm G clamp the tibial cutting guide set to remove tibial bone had about 6? of posterior slope matching his anatomy. The tibial wafer was removed. It was a little bit narrow for the size C and we removed an additional 2 mm of bone from the vertical wall adjacent to the tibial eminence and applied the size C and looked at this under fluoro and there was still little bit of overhanging we removed another mm and half of vertical wall bone and then the size C fit perfectly line to line with the contour the medial tibial plateau. An intramedullary joann was inserted in the femoral canal and the center line of the medial femoral condyle marked and the medium femoral drill guide set at 4 mm was linked to the intramedullary joann and the drill holes in the distal femur made just medial to the midline of the medial femoral condyle. Posterior cut was made distal femur milled with the 0 spigot meniscal remnants fully excised. The 4 was appropriate at 100? of flexion and it was a type 1 at 20? of flexion. We milled with a 3 mm spigot and on trialing we had again 4 mm at 100? but only 3 mm at 20? of flexion and we tested with the 3 mm bearing which was appropriate at 20? but loose at 100?. Therefore we placed the 4 mm spigot and milled additional 1 mm bone and on repeat trialing we had nice balance with a 4 mm bearing with symmetric wiggle in flexion extension. The impingement guide was placed in the femur the anterior femur milled and little sliver of cartilage was removed posteriorly. We trialed and we saw that there was full range of motion no impingement in deep flexion and full extension and the bearing tracked properly relative to the vertical wall about a mm from it in flexion about 3 mm from in extension. The keel slot was made and trial tibia with keel fit nicely. The bony surfaces were were irrigated and dried after using a step drill to make multiple perforations the tibial plateau and distal femur. One batch of methylmethacrylate mixed and applied the size C tibial component and then pressurized in the tibia and the size C fully seated trial femur and 4 mm Feeler placed the tourniquet released. Cement was allowed to harden and then excess cement was sought for removed and limb was re-exsanguinated tourniquet elevated and we repeated the process cementing the size medium femur and tourniquet again released and cement removed after cement hardening and we trialed with a 4 bearing which had appropriate wiggle in flexion and extension and normal tracking. The 4 mm bearing was snapped into place without d
[2020-11-09 15:36] LABS: Glucose Point of Care 98 (65-105)
[2020-11-09] MEDS: fentaNYL CITRATE INJ (*CRX) 100 MCG/2 ML VIAL 25 MCG IV PUSH ×3 (15:54→16:08)
--- NOTE | 2020-11-09 16:08 | SUR.PHASEI ---
[id number] sbar faxed floor notified
--- NOTE | 2020-11-09 16:20 | ADMGEN ---
This patient, Александр Villanueva, was admitted to Medical Room 253-01. Patient/family oriented to hospital policies and general routines including ID bracelet, bed and alarms, visiting hours, pain management, procedures, bathroom and other care routines, personal items, smoking policy, room service/diet, and visiting hours. Information on how to activate the Rapid Response Team has been discussed. Patient/Family are encouraged to report perceived risks to care and to ask questions if they do not understand what they are told or what they should do.
[2020-11-09] MEDS: diphenhydrAMINE HCl CAP 25 MG CAPSULE PO (17:01)
[2020-11-09] MEDS: oxyCODONE HCL (*CRX) 5 MG TAB IR PO ×3 (17:04→22:19)
[2020-11-09] MEDS: ONDANSETRON INJ 4 MG/2 ML VIAL IV PUSH ×2 (17:04→22:11)
[2020-11-09] MEDS: SODIUM CHLORIDE 0.9% IV 1,000 ML 125 ML IV CONT (17:11)
[2020-11-09] MEDS: MORPHINE SULFATE (*CRX) 2 MG/ML INJ IV PUSH ×3 (17:37→23:10)
[2020-11-09] MEDS: ASPIRIN 81 MG CHEWABLE TABLET PO (17:40)
[2020-11-09] MEDS: SENNA/DOCUSATE SODIUM TABLET 2 TAB PO (17:40)
[2020-11-09] MEDS: DEXAMETHASONE SOD PHOS INJ 4 MG/ML VIAL 8 MG IV PUSH (17:40)
[2020-11-09] MEDS: PANTOPRAZOLE SOD SESQUIHYDRATE 20 MG TAB PO (17:41)
[2020-11-09] MEDS: DOCUSATE SODIUM 100 MG CAPSULE PO (17:41)
[2020-11-09] MEDS: PREGABALIN (*CRX) 75 MG CAPSULE PO (17:41)
[2020-11-09] MEDS: oxyCODONE HCL (*CRX) 5 MG TAB IR (18:18)
--- NOTE | 2020-11-09 23:02 | PM.IMCN ---
Assessment and Plan Assessment and plan (1) Status post right partial knee replacement: Code(s): Z96.651 - Presence of right artificial knee joint Status: Acute Assessment and Plan: Postop care per Ortho. DVT prophylaxis per Ortho. Pain management per Ortho. But the patient is complaining some itching from the morphine so I did give him an extra dose of Benadryl. PT OT per ortho. Patient's dressing is dry and intact to the right knee. The patient is complaining a moderate amount of pain (2) COPD (chronic obstructive pulmonary disease): Code(s): J44.9 - Chronic obstructive pulmonary disease, unspecified Status: Chronic Assessment and Plan: Patient's inhalers have been continued. His lungs sound clear today. He is on albuterol and Symbicort (3) Hyperlipidemia: Code(s): E78.5 - Hyperlipidemia, unspecified Status: Chronic Assessment and Plan: Continue with patient's [place] 3. And atorvastatin (4) Hypothyroidism: Code(s): E03.9 - Hypothyroidism, unspecified Status: Chronic Assessment and Plan: Continue with patient's levothyroxine HPI Data of Consult Consult date: 11/09/20 Requesting Physician: Stephen Peterson MD Primary Care Provider: León Costello, Consult Narrative Narrative: Александр Villanueva is a 70 year old male who has a history of having a left ox for partial knee replacement done approximately 8 years ago and was doing well with that. The patient was having difficulty with his right knee. The patient had been on Plavix long-term and was unable to take anti-inflammatories. The patient was having daily discomfort and bone on bone. It was felt that the patient was a good candidate for partial right knee replacement. It looks like the patient had a cardiac workup prior to surgery and was cleared. The patient underwent a partial right knee replacement today per Dr. peterson. Please see operative and anesthesia notes. The patient has been complaining of having moderate amount of discomfort tonight. He was also complaining of itching with the morphine. The patient is admitted for observation to orthopedic services and I was asked to consult on this patient. Review of Systems Review of Systems: All systems reviewed & are unremarkable except as noted in HPI and below Constitutional: Constitutional: Reports as per HPI and Reports no additional constitutional complaints Eyes: Eyes: Reports as per HPI and Reports no additional eye complaints ENT: Reports system reviewed and no additional complaints, except as documented and Reports Normal hearing present Cardiovascular: Cardiovascular: Reports no additional cardiovascular complaints Respiratory: Respiratory: Reports no additional respiratory complaints and Reports no additional respiratory complaints Gastrointestinal: Gastrointestinal: Reports as per HPI and Reports no additional gastrointestinal complaints Musculoskeletal: Musculoskeletal: Reports no additional musculoskeletal complaints Integumentary/Breasts: Skin/Breast: Reports system reviewed and no additional complaints, except as docu and Reports as per HPI Neurologic: Reports system reviewed and no additional complaints, except as documented, Reports as per HPI and Reports Normal hearing present Psychiatric: Psychiatric: Reports no additional psychiatric complaints and Reports as per HPI Endocrine: Endocrine: Reports no additional endocrine complaints Hematologic/Lymphatic: Hematologic/Lymphatic: Reports no additional hematologic/lymphatic complaints Allergic/Immunologic: Allergic/Immunologic: Reports no additional allergic/immunologic complaints [facility] Past Medical History Medical History (Updated 11/09/20 @ 23:21 by Charissa Chauhan NP) Biceps tendonitis on right COPD (chronic obstructive pulmonary disease) Degenerative joint disease of knee Diabetes mellitus End stage renal disease In on dialysis for 3 weeks.
[2020-11-09] MEDS: diphenhydrAMINE HCl INJ 50 MG/ML VIAL 25 MG IV PUSH (23:23)
[2020-11-10] MEDS: oxyCODONE HCL (*CRX) 5 MG TAB IR PO ×6 (00:49→16:40)
[2020-11-10 02:08] VITALS: BP 145/83; PULSE 75; RESP 20; TEMP 36.4; O2SAT 99
[2020-11-10 06:08] VITALS: BP 112/74; PULSE 98; RESP 21; TEMP 36.9; O2SAT 100
[2020-11-10] MEDS: LEVOTHYROXINE SODIUM 75 MCG TABLET PO (06:32)
[2020-11-10] MEDS: ACETAMINOPHEN 500 MG TABLET 1000 MG PO ×2 (06:32→12:57)
--- NOTE | 2020-11-10 07:02 | PM.PNORT ---
Progress Note: A&P Additional Plan POD 1 alert avss labs-pending, NVI dressing is dry, pt has been up to chair yesterday, will work with PT today,if continues to do well plan to send home this afternoon Subjective Subjective Date/Time Seen: 11/10/20 07:02 Objective Data Vital Signs Vital Signs: Vital Signs - 24 hr 11/09/20 10:03 11/09/20 15:20 11/09/20 15:40 Temperature 36.1 C L 36.1 C L Pulse Rate 65 85 75 Respiratory Rate 18 12 16 Blood Pressure 138/83 117/68 124/70 Pulse Oximetry 97 100 97 11/09/20 15:55 11/09/20 16:20 11/09/20 16:35 Temperature 36.1 C L Pulse Rate 69 67 65 Respiratory Rate 12 10 L 16 Blood Pressure 124/73 114/70 130/66 Pulse Oximetry 96 96 99 11/09/20 16:50 11/09/20 17:20 11/09/20 22:08 Temperature 36.1 C L 36.1 C L 36.2 C L Pulse Rate 68 60 87 Respiratory Rate 18 16 18 Blood Pressure 134/78 135/69 118/68 Pulse Oximetry 98 96 96 11/10/20 02:08 Temperature 36.4 C Pulse Rate 75 Respiratory Rate 20 Blood Pressure 145/83 H Pulse Oximetry 99 Intake/Output Intake/Output: Intake & Output 11/07/20 11/08/20 11/09/20 11/10/20 23:59 23:59 23:59 23:59 Intake Total 800 1050 Output Total 75 225 Balance 725 825 Meds/Results Medications: Active Medications Generic Name Dose Route Start Last Admin Trade Name Freq PRN Reason Stop Dose Admin Acetaminophen 1,000 mg 11/09/20 18:00 11/10/20 06:32 Acetaminophen 500 Mg Tablet PO 1,000 mg Q6H LB Administration Albuterol 0 puff 11/09/20 16:23 Albuterol Sulfate (*Sp) Aerosol 1 Puff INHALATION QID PRN Shortness Of Breath Apixaban 2.5 mg 11/10/20 09:00 Apixaban 2.5 Mg Tablet PO Q12HR [facility] Ascorbic Acid 500 mg 11/10/20 09:00 Ascorbic Acid 500 Mg Tablet PO DAILY [facility] Aspirin 81 mg 11/09/20 16:23 11/09/20 17:40 Aspirin 81 Mg Chewable Tablet PO 81 mg DAILY@0800 [facility] Administration Atorvastatin Calcium 40 mg 11/10/20 09:00 Atorvastatin 40 Mg Tablet PO DAILY [facility] Budesonide/Formoterol Fumarate 2 puff 11/10/20 09:00 Budesonide/Form 160-4.5 Mcg (*Sp) INHALATION DAILY [facility] Cyanocobalamin 1,000 mcg 11/10/20 09:00 Cyanocobalamin 1,000 Mcg Tablet PO DAILY [facility] Diphenhydramine HCl 25 mg 11/09/20 16:52 11/09/20 17:01 Diphenhydramine Hcl Cap 25 Mg Capsule PO 25 mg Q6H PRN Administration Itching Docusate Sodium 100 mg 11/09/20 17:00 11/09/20 17:41 Docusate Sodium 100 Mg Capsule PO 100 mg BID LB Administration Fish Oil 1 gm 11/10/20 09:00 [place] 3 Polyunsat Fatty Acids 1 Gm Cap PO QAM [facility] Folic Acid 1 mg 11/10/20 09:00 Folic Acid 1 Mg Tablet PO DAILY [facility] Cefazolin Sodium 1 gm in 50 mls @ 100 mls/hr 11/09/20 20:00 11/10/20 04:30 Ancef 1 Gm/D5w 50 Ml Pm IVPB 11/10/20 12:29 Infused Q8H [facility] Infusion Vancomycin HCl 1,000 mg in 250 mls @ 250 mls/hr 11/09/20 22:00 11/09/20 23:30 Vancomycin 1,000 Mg/D5w 250 Ml IVPB 11/10/20 10:59 Infused Q12H [facility] Infusion Levothyroxine Sodium 75 mcg 11/10/20 06:30 11/10/20 06:32 Levothyroxine Sodium 75 Mcg Tablet PO 75 mcg DAILY@0630 [facility] Administration Magnesium Oxide 400 mg 11/10/20 09:00 Magnesium Oxide 400 Mg Tablet PO 12/10/20 09:01 DAILY [facility] Morphine Sulfate 2 mg 11/09/20 16:23 11/09/20 23:10 Morphine Sulfate (*Crx) 2 Mg/Ml Inj IV PUSH 2 mg Q1H PRN Administration Pain Rated 7-10 Naloxone HCl 0.1 mg 11/09/20 16:23 Naloxone Hcl 0.4 Mg/Ml Vial IV PUSH Q2M PRN Opiate Reversal Ondansetron HCl 4 mg 11/09/20 21:58 11/09/20 22:11 Ondansetron Inj 4 Mg/2 Ml Vial IV PUSH 4 mg Q4H PRN Administration Nausea And Vomiting Oxycodone HCl 5 mg 11/09/20 16:23 11/10/20 03:58 Oxycodone Hcl (*Crx) 5 Mg Tab Ir PO 5 mg Q4H LB Administration Oxycodone HCl 5 mg 11/09/20 18:10 11/09/20 22:19 Oxycodone Hcl (*Crx) 5 Mg Tab Ir PO 5 mg Q4H PRN Administration Pain Rated
--- NOTE | 2020-11-10 07:09 | PM.DS ---
DS: Admitting Diagnosis Admitting Diagnosis Admitting Diagnosis: right knee DJD DS: Summary Hospital Course Hospital Course: stable Time Spent with Patient Time attestation: Total time spent providing and/or coordinating discharge services: 70-year-old male who underwent right [place] partial knee replacement on 11/09/2020. Underwent procedure without any complications. Postoperatively he has been afebrile vital signs stable neurovascular intact. His dressing is dry. He is weight-bearing as tolerated. He is on Eliquis for 2 weeks for DVT prophylaxis after which he will resume his Plavix. He is on his baby aspirin through the time of surgery. Pain is controlled with oxycodone as well as scheduled Tylenol. He is also on MiraLax and Senokot for constipation. At time of dictation morning labs were not completed we will check these prior to his discharge. Patient will work with Physical therapy on 11/10 if he continues to well plan discharge home later that day. Patient was advised to keep leg elevated at home prevent swelling. His outpatient therapy starting next Saturday. Patient was advised any questions or concerns he should call the office otherwise will see him back as appointed date. DS: Data Data Completed and Pending Labs on day of discharge: Labs from last 24 hours 11/09/20 11/09/20 11/09/20 15:30 11:04 10:34 WBC 10.5 H RBC 4.78 Hgb 14.9 Hct 45.0 MCV 94.1 MCH 31.2 MCHC 33.1 RDW 13.8 Plt Count 289 MPV 9.6 POC Capillary Glucose 98 Blood Type A Positive Antibody Screen Negative Discharge Plan Discharge Patient Disposition: Home, Self-Care Discharge Instructions: STEPHEN PETERSON M.D [facility] [address] [place] [id number] POST-OPERATIVE DISCHARGE INSTRUCTIONS TOTAL KNEE ARTHROPLASTY 1. When resting, lie on back with leg elevated above hear to minimize swelling. Significant swelling could indicate a blood clot and if this occurs call the office (or go to the ER) to have a venous ultrasound. 2. Do exercise 5 times a day. 3. Do not sit with leg down except for meals. 4. Wound Care: Nursing will give additional dressings at discharge. Patient to change dressing at home 1 week from surgery, then maintain until seen in office. 5. May shower with dressing in place. 6. Follow weight bearing status instructions. Stand Alone Forms: General Discharge Instructions Follow-up/Referrals: Stephen Peterson MD [Physician] - Keep Reg. Scheduled Appt. Discharge Medications: New polyethylene glycol 3350 [Miralax] 17 gram Powder In Packet 17 g PO QAM Qty: 30 RF: 0 sennosides-docusate sodium [Senokot-S] 8.6-50 mg Tablet 2 tab PO BID Qty: 60 RF: 0 sulfamethoxazole-trimethoprim 800-160 mg Tablet 1 tab PO Q12HR Qty: 14 RF: 0 acetaminophen 500 mg Tablet 1,000 mg PO Q6H Qty: 90 RF: 0 aspirin [Children's Aspirin] 81 mg Tablet,Chewable 81 mg PO DAILY@0800 Qty: 90 RF: 0 oxycodone 5 mg Tablet 5 mg PO Q4H Qty: 50 RF: 0 Eliquis 2.5 mg Tablet 2.5 mg PO Q12HR Qty: 27 RF: 0 Continued budesonide-formoterol [Symbicort] 160-4.5 mcg/actuation HFA aerosol inhaler 2 inh INHALATION DAILY RF: 0 atorvastatin 40 mg Tablet 40 mg PO DAILY RF: 0 levothyroxine [Synthroid] 75 mcg Tablet 75 mcg PO DAILY RF: 0 pregabalin [Lyrica] 75 mg Capsule 75 mg PO BID RF: 0 pantoprazole [Protonix] 20 mg Tablet,Delayed Release (Dr/Ec) 20 mg PO BID RF: 0 albuterol sulfate [Ventolin HFA] 90 mcg/actuation Hfa Aerosol Inhaler 1 - 2 puff INHALATION QID PRN (Reason: Shortness Of Breath) RF: 0 cyanocobalamin (vitamin B-12) 1,000 mcg Tablet 1,000 mcg PO DAILY RF: 0 ferrous sulfate [iron] 325 mg (65 mg iron) Tablet 325 mg PO DAILY RF: 0 folic acid 1 mg Tablet 1 mg PO DAILY RF: 0 magnesium 250 mg Tablet 250 mg PO DAILY RF: 0 omega-3 fatty aci
[2020-11-10 07:19] LABS: Hematocrit 37.9 % (42.0-52.0); Hemoglobin 12.7 g/dL (14.0-18.0); Mean Corpuscular HGB Conc 33.5 g/dl (32-36); Mean Corpuscular Hemoglobin 30.7 pg (26-34); Mean Corpuscular Volume 91.5 fl (80-100); Platelet Count Result 307 k/mm3 (150-375); Red Blood Count 4.14 M/mm3 (4.6-6.20); Red Cell Distribution Width 13.3 % (11.5-14.5); White Blood Count 18.4 K/mm3 (4.5-10.0)
[2020-11-10 07:29] LABS: Anion Gap 8 mmol/L (8-16); Blood Urea Nitrogen 12 mg/dL (9-20); Calcium 8.6 mg/dL (8.4-10.2); Carbon Dioxide 23 mmol/L (22-30); Chloride 99 mmol/L (98-107); Estimated CRCL calculation 50 ml/min; Estimated Glomerular Filt Rate > 60; Glucose 142 mg/dL (75-110); Potassium 4.6 mmol/L (3.4-5.0); Sodium 130 mmol/L (137-145)
[2020-11-10] MEDS: PREGABALIN (*CRX) 75 MG CAPSULE PO ×2 (08:09→16:40)
[2020-11-10] MEDS: ATORVASTATIN 40 MG TABLET PO (08:09)
[2020-11-10 08:10] LABS: Band Neutrophils Percent 1 % (0-6); Lymphocytes Absolute Manual 0.36 K/mm3 (1.1-4.5); Monocytes Absolute Manual 0.73 K/mm3 (0.1-0.90); Monocytes Percent Manual 4 % (3-9); Neutrophils Absolute Manual 17.29 K/mm3 (1.3-6.7); Neutrophils Percent Manual 93 % (46-73); Platelet Estimate Adequate (Adequate); Total Cells Counted 100
[2020-11-10] MEDS: DOCUSATE SODIUM 100 MG CAPSULE PO ×2 (08:10→16:40)
[2020-11-10] MEDS: ASPIRIN 81 MG CHEWABLE TABLET PO (08:10)
[2020-11-10] MEDS: OMEGA 3 POLYUNSAT FATTY ACIDS 1 GM CAP PO (08:10)
[2020-11-10] MEDS: MAGNESIUM OXIDE 400 MG TABLET PO (08:10)
[2020-11-10] MEDS: PANTOPRAZOLE SOD SESQUIHYDRATE 20 MG TAB PO ×2 (08:10→16:41)
[2020-11-10] MEDS: FOLIC ACID 1 MG TABLET PO (08:10)
[2020-11-10] MEDS: CYANOCOBALAMIN 1,000 MCG TABLET 1000 MCG PO (08:10)
[2020-11-10] MEDS: SENNA/DOCUSATE SODIUM TABLET 2 TAB PO ×2 (08:10→16:41)
[2020-11-10] MEDS: APIXABAN 2.5 MG TABLET PO (08:11)
[2020-11-10] MEDS: polyethylene glycoL 3350 17 GM POWD.PACK PO (08:11)
[2020-11-10] MEDS: ASCORBIC ACID 500 MG TABLET PO (08:11)
[2020-11-10 10:08] VITALS: BP 125/75; PULSE 95; RESP 16; TEMP 37; O2SAT 94
--- NOTE | 2020-11-10 14:01 | PM.DS ---
DS: Admitting Diagnosis Admitting Diagnosis Admitting Diagnosis: presented for a right [place] partial knee replacement versus total knee replacement due to right knee DJD DS: Discharge Diagnosis Discharge Diagnosis (1) Status post right partial knee replacement: Code(s): Z96.651 - Presence of right artificial knee joint Status: Acute Assessment and Plan: Postop care per Ortho. DVT prophylaxis per Ortho. Pain management per Ortho. But the patient is complaining some itching from the morphine so I did give him an extra dose of Benadryl. PT OT per ortho. Patient's dressing is dry and intact to the right knee. The patient is complaining a moderate amount of pain (2) COPD (chronic obstructive pulmonary disease): Code(s): J44.9 - Chronic obstructive pulmonary disease, unspecified Status: Chronic Assessment and Plan: Patient's inhalers have been continued. His lungs sound clear today. He is on albuterol and Symbicort (3) Hyperlipidemia: Code(s): E78.5 - Hyperlipidemia, unspecified Status: Chronic Assessment and Plan: Continue with patient's [place] 3. And atorvastatin (4) Hypothyroidism: Code(s): E03.9 - Hypothyroidism, unspecified Status: Chronic Assessment and Plan: Continue with patient's levothyroxine DS: Summary Hospital Course Hospital Course: Patient underwent right knee replacement surgery, recovered well, no sign of active bleeding or infection, able to participate with PT and OT will be discharged to continue his rehab at home, he is to follow-up with ortho surgeon Time Spent with Patient Time attestation: Total time spent providing and/or coordinating discharge services: 45 MIN Exam Narrative: Exam Narrative: patient sitting with both legs on ground. Const: General: cooperative, healthy appearing, comfortable, no acute distress, well developed, alert, awake and Physically active Nutritional Appearance: average body habitus and well nourished Orientation/consciousness: oriented to person, oriented to place, oriented to time and patient oriented x3 Limitations: no limitations HENMT: Head: normal to inspection, No palpable skull fracture present, normocephalic and atraumatic Ears: hearing grossly normal bilaterally and external ears normal General nose exam: Normal external nose present Eyes: General: appearance normal, both eyes and all related structures Alignment and Position: alignment normal Periorbital: periorbital findings normal Eyelids: eyelids normal Conjunctivae: conjunctivae normal Sclera: sclerae normal Cornea: corneas normal Pupils: Equal, round and reactive pupils present EOM: EOMs intact bilaterally Neck: Neck: normal visual inspection Chest: Chest palpation & inspection: normal inspection of the chest Resp: Effort & Inspection: normal respiratory effort Auscultation: clear to auscultation bilaterally Percussion: percussion normal Cardio: Palpation: normal PMI Rate: regular rate Rhythm: regular rhythm Heart sounds: S1 normal heart sound present and S2 normal heart sound present Peripheral pulses: Peripheral pulses 2+ throughout GI: Inspection: normal to inspection Auscultation: normal bowel sounds Rectal Exam: deferred Skin: General skin exam: normal color Lesions: no lesions Rashes: no rashes Trauma: no lacerations or abrasions Wounds: wound noted and wounds noted (right knee incision covered with clean/dry/occlusive OR dressing) Hair: normal Nails: normal Other: right leg with generalized swelling noted - encouraged patient to elevated legs more Neuro: General: oriented to person, oriented to place, oriented to time, patient oriented x3 and No gait normal Cranial nerves: Yes Equal, round and reactive pupils present and Yes Normal hearing present Cognition (Neuro): normal cognition Speech: normal speech Sensory Exam: normal sensation Extrem: General: normal to inspection Right upper e
[2020-11-10 14:08] VITALS: BP 122/72; PULSE 99; RESP 16; TEMP 36.7; O2SAT 90
== END 2020-11-10 16:45 | disposition home or self-care (01) ==
LOC: ANHSURGERY 09:55 → ANH2MED 16:43
PROVIDERS: PCP Internal Medicine; Visit Provider Orthopaedic Surgery
PROC: (CPT 27446; principal; 2020-11-09 12:00)
DX: M17.11 Unilateral primary osteoarthritis, right knee (principal); J44.9 Chronic obstructive pulmonary disease, unspecified; E11.9 Type 2 diabetes mellitus without complications; I10 Essential (primary) hypertension; E78.00 Pure hypercholesterolemia, unspecified; E78.5 Hyperlipidemia, unspecified; E03.9 Hypothyroidism, unspecified; D50.9 Iron deficiency anemia, unspecified; Z86.73 Personal history of transient ischemic attack (TIA), and cerebral infarction without residual deficits; K27.9 Peptic ulcer, site unspecified, unspecified as acute or chronic, without hemorrhage or perforation; Z87.891 Personal history of nicotine dependence; Z79.51 Long term (current) use of inhaled steroids; Z79.02 Long term (current) use of antithrombotics/antiplatelets
CPT/HCPCS: 27447; 36415; 73560; 80048; 80307; 82040; 82948; 83036; 85025; 85027; 86850; 86900; 86901; 87070; 94640; 97110; 97116; 97161; 97165; A9270; C1713; C1776; C9803; J0171; J0330; J0690; J1100; J1170; J1200; J1940; J2250; J2270; J2405; J2704; J2795; J3010; J3370; J7030; J7120; U0003; U0005

== ENCOUNTER 2021-01-06 15:52 | Outpatient (CLI) | payer MEDICARE, SELFPAY ==
--- NOTE | ~2021-01-06 | CT_ITS ---
EXAMINATION: CT chest high resolution wo co DATE: 01/06/2021 16:37 INDICATION: Interstitial pulmonary disease. TECHNIQUE: Computed tomography (CT) of the chest was performed without intravenous contrast. The dose -length product was 183.46 mGy-cm. Automated exposure control and iterative reconstruction technique were employed. COMPARISON: CT dated 04/06/2019 FINDINGS: There are calcified mediastinal lymph nodes and calcified splenic granulomas, consistent wi th chronic granulomatous disease. Heart size is normal. There are changes of esophagectomy with gastr ic pull-through procedure. There is atherosclerosis of the aorta and coronary arteries. Heart size is normal. There are gallstones. There are chronic groundglass opacities with areas of reticulo-nodular ity with tree-in-bud configuration there is mild emphysema. Primarily involving the lower lobes. Ther e is a 1 cm right lower lobe mass, image 76, which appears new. There is an irregular shaped 6 mm rig ht middle lobe nodule, image 78. There is a calcified granuloma right midlung zone. There are several small nodules in the left midlung zone with surrounding groundglass opacification. There is an 8 mm left upper lobe nodule, image 44. This was not definitely seen on prior examination. No endobronchial lesions. IMPRESSION: 1. Chronic patchy groundglass opacities with areas of associated nodularity, largest in the right low er lobe measuring 1 cm. Most of the nodules appear new compared with prior examination. These finding s are compatible with pneumonia, although superimposed malignancy is not excluded. Consider correlati on with pet/CT scan. Alternatively follow-up CT in one month following appropriate therapy may be per formed. Reviewed, dictated and finalized at location A. IMPRESSION: 1. Chronic patchy groundglass opacities with areas of associated nodularity, la rgest in the right lower lobe measuring 1 cm. Most of the nodules appear new co mpared with prior examination. These findings are compatible with pneumonia, al though superimposed malignancy is not excluded. Consider correlation with pet/C T scan. Alternatively follow-up CT in one month following appropriate therapy m ay be performed.
== END 2021-01-06 15:53 | disposition home or self-care (01) ==
LOC: ANHIMG 15:56
PROVIDERS: PCP Internal Medicine; Visit Provider Internal Medicine Critical Care Medicine
DX: J84.9 Interstitial pulmonary disease, unspecified (principal)
CPT/HCPCS: 71250

== ENCOUNTER 2021-01-26 08:20 | Outpatient (CLI) | payer MEDICARE, SELFPAY ==
--- NOTE | 2021-01-26 11:23 | WPDSIXMINUTE ---
Six Minute Walk Procedure Procedure Performed Pulmonary Stress Test (6 min walk) Six Minute Walk This is a 6 minutes walk test. The test was performed and interpreted in accordance with the 2014 ERS/ATS task force guidelines. Findings: The patient's resting room air oxygen saturation measured by pulse oximetry was 96% and her heart rate was 88 bpm. Patient ambulated for 366 meters and oxygen saturation remained 92 to 98%. Heart rate at the end of the study was 102 bpm. The patient did not qualify for supplemental oxygen at rest or with ambulation. There are no prior studies for comparison.
--- NOTE | 2021-01-26 11:24 | WPDPFTINT ---
PFT Procedure Performed PFT Procedure Performed Spirometry with Pre/Post Bronchodilator Plethysmography (Lung Vol) Diffusing Cap (DLCO) Flow Vol Loop PFT Interpretation This is a pulmonary function test with pre and post-bronchodilator spirometry, plethysmography and diffusing capacity. The test was performed and results interpreted in accordance with the 2019 and 2005 ATS/ERS Task Force guidelines respectively using the Global Lung Function Initiative-2012 reference equations. Patient demonstrated good effort and cooperation. Reproducibility criteria were met. The quality of the pre bronchodilator spirometry maneuver was Grade A and post bronchodilator spirometry maneuver was Grade A. Findings: Spirometry: The contour the inspiratory and expiratory flow tracing are normal. the pre bronchodilator FVC is 2.81 L, 94% predicted. The pre bronchodilator FEV1 is 2.10 L, 91% predicted. The FEV1: FVC ratio is 74%. The post bronchodilator FVC is 2.86 L, representing a 2% increase. The post bronchodilator FEV1 is 1.98 L, representing a 6% decrease. Plethysmography: The total lung capacity is 4.61 L, 86% predicted. The functional residual capacity is 2.50 L, 81% predicted. The residual volume is 1.80 L, 77% predicted. Diffusing capacity: The absolute diffusion capacity is 10.3, 49% predicted. The diffusing capacity corrected for alveolar volume is 2.56, 61% predicted. Impression: The spirometry is normal without evidence of an obstructive abnormality. There is no significant improvement after inhaling a single dose of albuterol. The lung volumes are normal. The absolute diffusing capacity is moderately decreased and remains mildly decreased when corrected for alveolar volume. There are no prior studies for comparison
== END 2021-01-26 08:21 | disposition home or self-care (01) ==
PROVIDERS: PCP Internal Medicine; Visit Provider Internal Medicine Critical Care Medicine
DX: J44.9 Chronic obstructive pulmonary disease, unspecified (principal)
CPT/HCPCS: 94060; 94618; 94726; 94729

== ENCOUNTER 2021-02-10 13:14 | Outpatient (NON) | payer MEDICARE, SELFPAY ==
[2021-02-10 15:14] LABS: Appearance Synovial Fluid Hazy (Clear); Color Synovial Fluid Yellow (Colorless); Source Synovial Fluid Synovial fluid
[2021-02-10 15:15] LABS: Lymphocytes Synovial Fluid 95 %; Neutrophils Synovial Fluid 4 % (0-25)
[2021-02-10 16:11] LABS: Nucleated Cell Synovial Fluid 304 /uL (0-200); RBC Synovial Fluid 155 /uL (0-0)
== END 2021-02-10 13:15 | disposition home or self-care (01) ==
LOC: ANHLAB 13:19
PROVIDERS: PCP Internal Medicine; Visit Provider Orthopaedic Surgery
DX: Z96.651 Presence of right artificial knee joint (principal)
CPT/HCPCS: 87070; 87075; 87205; 88108; 89051; 89060

== ENCOUNTER 2021-02-21 09:19 | Outpatient (CLI) | payer MEDICARE, SELFPAY ==
[2021-02-21 09:40] LABS: Hematocrit 40.5 % (42.0-52.0); Hemoglobin 13.5 g/dL (14.0-18.0); Mean Corpuscular HGB Conc 33.3 g/dl (32-36); Mean Corpuscular Hemoglobin 30.3 pg (26-34); Mean Corpuscular Volume 90.8 fl (80-100); Mean Platelet Volume 9.6 fl (7.4-10.4); Platelet Count Result 332 k/mm3 (150-375); Red Blood Count 4.46 M/mm3 (4.6-6.20); Red Cell Distribution Width 14.2 % (11.5-14.5)
[2021-02-21 09:47] LABS: Atypical Lymphocytes Present; Band Neutrophils Percent 2 % (0-6); Lymphocytes Absolute Manual 1.89 K/mm3 (1.1-4.5); Monocytes Absolute Manual 1.68 K/mm3 (0.1-0.90); Monocytes Percent Manual 8 % (3-9); Neutrophils Absolute Manual 17.43 K/mm3 (1.3-6.7); Neutrophils Percent Manual 81 % (46-73); Platelet Estimate Adequate (Adequate); Total Cells Counted 100
[2021-02-21 14:19] LABS: Alanine Aminotransferase 22 U/L (4-50); Albumin Level 4.1 g/dL (3.5-5.1); Alkaline Phosphatase 167 U/L (38-126); Anion Gap 6 mmol/L (8-16); Aspartate Amino Transferase 24 U/L (17-59); Bilirubin,Total 0.7 mg/dL (0.2-1.3); Blood Urea Nitrogen 17 mg/dL (9-20); Calcium 9.2 mg/dL (8.4-10.2); Carbon Dioxide 25 mmol/L (22-30); Chloride 105 mmol/L (98-107); Estimated Glomerular Filt Rate > 60; Glucose 151 mg/dL (65-110); Lactate Dehydrogenase 405 U/L (313-618); Potassium 4.5 mmol/L (3.4-5.0); Sodium 136 mmol/L (137-145)
== END 2021-02-21 09:20 | disposition home or self-care (01) ==
PROVIDERS: PCP Internal Medicine; Visit Provider Internal Medicine Hematology & Oncology
DX: C15.9 Malignant neoplasm of esophagus, unspecified (principal)
CPT/HCPCS: 36415; 80053; 83615; 85025

== ENCOUNTER 2021-03-02 07:49 | Outpatient (CLI) | payer MEDICARE, SELFPAY ==
--- NOTE | ~2021-03-02 | PE_ITS ---
EXAMINATION: PET skull to mid thigh DATE: 03/02/2021 09:49 INDICATION: Malignant neoplasm of esophagus. TECHNIQUE: Blood glucose level was 90 mg/dL. 8.485 mCi of 18-fluorodeoxyglucose (18-FDG) was administ ered i.v. Low dose computed tomography (CT) images were acquired from the base of the brain to the pr oximal thighs for attenuation correction and anatomic localization. Automated exposure control was em ployed. Dose-length product (DLP) was 657 mGy-cm. Positron emission tomography (PET) images were acqu ired in the same distribution. COMPARISON: Chest CT 01/06/2021, 04/06/2019 FINDINGS: Head/neck: There is increased activity in the oral cavity, major salivary glands, and glottis without abnormal CT correlate, likely physiologic. There are no pathologically enlarged lymph nodes. Chest: A calcified right lung nodule and calcified right hilar and mediastinal lymph nodes are consis tent with old granulomatous disease. There are reticular opacities, groundglass opacities, and small nodules in both lungs with a lower and posterior predominance without increased activity. The heart s ize is normal. No pericardial effusion. There are changes of esophagectomy and gastric pull-through p rocedure. There is a right shoulder arthroplasty. Abdomen/pelvis/proximal thighs: The liver is normal. There is a gallstone in the gallbladder, which i s normal in size. Calcifications in the spleen are consistent with old granulomatous disease. The rae creas and adrenal glands are normal. There are cysts in the kidneys measuring up to 3.4 cm on the lef t. There are no dilated loops of bowel. There is diverticulosis of the colon without evidence of dive rticulitis. There is a right inguinal hernia containing fat. There are no pathologically enlarged lym ph nodes. There is no free intraperitoneal fluid. IMPRESSION: 1. No specific evidence of metastatic disease. 2. Diffuse lung disease with a posterior and lower lung predominance, likely chronic infection, mildl y worsened from 04/06/19. Reviewed, dictated and finalized at location A. IMPRESSION: 1. No specific evidence of metastatic disease. 2. Diffuse lung disease with a posterior and lower lung predominance, likely ch ronic infection, mildly worsened from 04/06/19.
[2021-03-02 08:20] LABS: Glucose Point of Care 90 mg/dl (65-105)
== END 2021-03-02 07:50 | disposition home or self-care (01) ==
PROVIDERS: PCP Internal Medicine; Visit Provider Internal Medicine Hematology & Oncology
DX: Z03.89 Encounter for observation for other suspected diseases and conditions ruled out (principal); C15.9 Malignant neoplasm of esophagus, unspecified; R91.1 Solitary pulmonary nodule; J98.4 Other disorders of lung
CPT/HCPCS: 78815; A9552

== ENCOUNTER 2021-03-20 07:44 | Outpatient (CLI) | payer MEDICARE, SELFPAY ==
--- NOTE | ~2021-03-20 | CT_ITS ---
EXAMINATION: CT diagnostic chest wo con EXAM DATE: 03/20/2021 08:06 INDICATION: R91.8 - Other nonspecific abnormal finding of lung field . Esophageal cancer 2000. Gastri c pull-through TECHNIQUE: Spiral CT of the chest without contrast. Axial, coronal and sagittal images of the chest were reviewed. Coronal maximum intensity pixel images of chest reviewed. The dose-length product ( DLP) for this examination was 112.08 mGy-cm. The exposure was tailored according to patient size (au to mA exposure control), and iterative reconstruction (ASIR) was used as additional dose reduction te chnique. Comparison is made to prior examination from 04/06/2019, 01/06/2021. FINDINGS: Previously seen right lower nodules up to 1 cm have resolved consistent with infectious or inflammatory etiology. There is chronic tree-in-bud distribution ill-defined opacities in the lungs bilaterally, mild progression compared to 2019 CT. Most likely chronic pneumonitis, could be infectio us or other inflammatory etiology. There are no pleural or pericardial effusions. Mild bronchiectasis. There is no mediastinal, hilar or axillary lymphadenopathy. There is no pneumothorax. Heart normal in size. There is moderate coronary arterial calcification, arterial sclerosis. Upper abdomen is unremarkable. There is thor acic spondylosis without osteoblastic or osteolytic lesions identified. There is right shoulder rep lacement. IMPRESSION: 1. Resolution of previously seen more discrete pulmonary nodules. 2. Chronic groundglass opacities, distribution suggests pneumonitis. Likely chronic infectious, or i nflammatory with mild progression compared to 2019. Reviewed, dictated and finalized at location B. IMPRESSION: 1. Resolution of previously seen more discrete pulmonary nodules. 2. Chronic groundglass opacities, distribution suggests pneumonitis. Likely ch ronic infectious, or inflammatory with mild progression compared to 2019.
== END 2021-03-20 07:45 | disposition home or self-care (01) ==
LOC: ANHIMG 07:47
PROVIDERS: PCP Internal Medicine; Visit Provider Nurse Practitioner Family
DX: R91.8 Other nonspecific abnormal finding of lung field (principal)
CPT/HCPCS: 71250

== ENCOUNTER 2021-07-11 00:18 | Day surgery (SDC) | payer MEDICARE, SELFPAY ==
[2021-06-27 12:37] VITALS: BMI 24.9
[2021-07-11 07:48] VITALS: BP 162/83; PULSE 63; RESP 20; TEMP 36.8; O2SAT 97
[2021-07-11] MEDS: LACTATED RINGERS 1,000 ML 150 ML IV CONT (07:53)
--- NOTE | 2021-07-11 08:14 | WPDHPUPDATE1 ---
History and Physical Update Update Date/Time: 07/11/21 08:14 History and Physical has been reviewed, including an updated exam of the patient. There are NO changes in the patient's condition. Risks, benefits, and alternatives have been discussed and questions answered. Patient agrees to proceed with procedure.
--- NOTE | 2021-07-11 08:16 | WPDANESEPPF ---
Anes - Initial Pre Proc Eval Procedure: Operation Date: 07/11/21 09:00 Proposed Procedures p Esophagogastroduodenoscopy - Mika Blackwell MD Date/Time: 07/11/21 08:16 Surgeon: Mika Blackwell MD Pre Op Diagnosis: GERD Patient Data Age: 70 Gender: M Height: 1.68 m Weight: 73.9 kg Last Vital Signs Temp 36.8 C 07/11/21 07:48 Pulse 63 07/11/21 07:48 Resp 20 07/11/21 07:48 BP 162/83 H 07/11/21 07:48 Pulse Ox 97 07/11/21 07:48 Allergies Allergy/AdvReac Type Severity Reaction Status Date / Time No Known Allergies Allergy Verified 06/27/21 12:37 Home Medications Medication Instructions Recorded Confirmed Type levothyroxine [Synthroid] 75 mcg PO DAILY 05/07/19 06/27/21 History pantoprazole [Protonix] 20 mg PO BID 05/07/19 06/27/21 History pregabalin [Lyrica] 75 mg PO BID 05/07/19 06/27/21 History ascorbic acid (vitamin C) 500 mg PO DAILY 10/20/20 06/27/21 History ferrous sulfate [iron] 325 mg PO DAILY 10/20/20 06/27/21 History folic acid 1 mg PO DAILY 10/20/20 06/27/21 History omega-3 fatty acids-vitamin E 1 cap PO DAILY 10/20/20 06/27/21 History cyanocobalamin (vitamin B-12) 1,000 mcg PO DAILY 12/27/20 06/27/21 History 1,000 mcg tablet magnesium citrate 150 ml PO DAILY 02/09/21 06/27/21 History omega-3 fatty acids 1,000 mg 1,000 mg PO DAILY 02/09/21 06/27/21 History capsule cholecalciferol (vitamin D3) 25 25 mcg PO DAILY 04/27/21 06/27/21 History mcg (1,000 unit) capsule fluticasone fur. 100 mcg-umeclid 1 inh INHALATION DAILY 04/27/21 06/27/21 History 62.5 mcg-vilant 25 mcg inhalat.powder atorvastatin 40 mg tablet 40 mg PO BID tablet 06/21/21 06/27/21 History Patient hx anesthesia problems: none Family hx anesthesia problems: none Results Review: All pre-operative results and documents have been reviewed as part of the pre-operative evaluation. [facility] Past Medical History Medical History Biceps tendonitis on right COPD (chronic obstructive pulmonary disease) Degenerative joint disease of knee Diabetes mellitus End stage renal disease In on dialysis for 3 weeks. No problems since then. Esophageal cancer Fever GERD (gastroesophageal reflux disease) High cholesterol Hyperlipidemia Hypertension Hypothyroidism ERMELINDA (iron deficiency anemia) Knee injury Mass of right forearm Excise Pneumonia Radial tunnel syndrome of right upper extremity Rotator cuff tear arthropathy Stomach ulcer Strain of elbow and forearm TIA (transient ischemic attack) Vision changes Surgical History Surgical History H/O esophagogastroduodenoscopy H/O foot surgery H/O hernia repair H/O repair of rotator cuff History of colonoscopy History of esophagectomy 1999; had 14 years of follow up, no recurrence History of reverse total replacement of shoulder joint Status post left partial knee replacement 2012 Status post right partial knee replacement 11/09/2020 Family History Family History Mother Family history of cardiovascular disease Father Family history of cardiovascular disease Sibling Family history of cardiovascular disease Sibling Lung cancer Other Family history of malignant neoplasm Hypertension Social History Social History Social History: The patient stated that he used to smoke a drink a long time ago and no longer smokes or drinks. The patient lives with his who is the durable power workers compensation attorney for healthcare. The patient is a full code. The patient has 2 children. 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 He denies any marijuana or illicit drugs. Smoking packs per day: 4 Smoking cigarettes per day: 80.0 Years smoked: 6 Smoking pack-years: 24.00 Smoking status: Former smoker Tobacco type:
[2021-07-11 09:10] VITALS: BP 145/86; PULSE 69; RESP 21; O2SAT 99
[2021-07-11 09:20] VITALS: BP 147/88; PULSE 71; RESP 22; O2SAT 98
[2021-07-11 09:30] VITALS: BP 149/85; PULSE 70; RESP 20; O2SAT 97
== END 2021-07-11 09:44 | disposition home or self-care (01) ==
PROVIDERS: PCP Internal Medicine; Visit Provider Internal Medicine Gastroenterology
PROC: 0DJ08ZZ Inspection of Upper Intestinal Tract, Via Natural or Artificial Opening Endoscopic (ICD-10-PCS; CPT 43235; principal; 2021-07-11 09:00)
DX: R93.3 Abnormal findings on diagnostic imaging of other parts of digestive tract (principal); Z98.0 Intestinal bypass and anastomosis status; Z85.01 Personal history of malignant neoplasm of esophagus; K21.9 Gastro-esophageal reflux disease without esophagitis; J44.9 Chronic obstructive pulmonary disease, unspecified; E11.9 Type 2 diabetes mellitus without complications; I12.0 Hypertensive chronic kidney disease with stage 5 chronic kidney disease or end stage renal disease; N18.6 End stage renal disease; E78.00 Pure hypercholesterolemia, unspecified; E03.9 Hypothyroidism, unspecified; Z86.73 Personal history of transient ischemic attack (TIA), and cerebral infarction without residual deficits; Z87.891 Personal history of nicotine dependence; Z90.49 Acquired absence of other specified parts of digestive tract
CPT/HCPCS: 43239; 88305; J2704; J7120

== ENCOUNTER 2021-11-29 07:45 | Outpatient (CLI) | payer MEDICARE, SELFPAY ==
--- NOTE | ~2021-11-29 | NM_ITS ---
EXAMINATION: NM neelima stress w perfusion DATE: 11/29/2021 12:04 INDICATION: Chest pain TECHNIQUE: Rest images were obtained following intravenous administration of 10.8 mCi Tc99m tetrofosm in (Myoview). The patient was infused intravenously with Lexiscan (Regadenoson). Then, 34.4 mCi Tc99m tetrofosmin (Myoview) was administered intravenously, and stress images were obtained. Data was olivia nstructed into short axis and horizontal and vertical long axis SPECT images. Gated SPECT images were also obtained. COMPARISON: None. FINDINGS: Small mild reversible perfusion defect at the mid inferolateral segment consistent with isc hemia. No nonreversible infarcts. There is normal left ventricular chamber size, wall motion and eje ction fraction. Left ventricular ejection fraction measures >70%. IMPRESSION: 1. Small region of mild reversible ischemia at the mid inferolateral segment. 2. Left ventricular ejection fraction measuring >70%. Reviewed, dictated and finalized at location B.
--- NOTE | 2021-11-29 07:55 | ECHO_ITS ---
Patient Info Name: Александр Villanueva Age: 71 years : 1950 Gender: Male Ht: 66 in Wt: 158 lbs BSA: 1.84 m2 HR: 59 bpm BP: 155 / 91 mmHg Technical Quality: Fair Exam Date: 11/29/2021 8:33 AM Exam Location: [facility] Patient Status: Outpatient Admit Date: 11/29/2021 Staff Ordering Physician: Thuan Arceo DO Conference Service Coordinator: John Farmer RDCS, RT Attending Provider: Thuan Arceo DO Referring Physician: Adis DEMPSEY; Exam Type: CA echo doppler color flow Study Info Indications R06.00 - Dyspnea, unspecified Complete two-dimensional, color flow and Doppler transthoracic echocardiogram is performed. Strain analysis performed. Summary 1. Complete two-dimensional, color flow and Doppler transthoracic echocardiogram is performed. 2. Left ventricular chamber dimension is normal. 3. Left ventricular systolic function is normal, estimated at 55-60%. 4. The left ventricular diastolic function is grade I diastolic dysfunction. 5. E/e' 6 is not elevated. 6. Global longitudinal strain is normal at -19.2%. 7. Left atrial chamber dimension is mildly enlarged. 8. There is mild aortic valve sclerosis. 9. There is mild mitral valve regurgitation. 10. There is mild tricuspid valve regurgitation. 11. No pulmonary hypertension, estimated pulmonary arterial systolic pressure is 36 mmHg. Left Ventricle E/e' 6 is not elevated. Global longitudinal strain is normal at -19.2%. Left ventricular chamber dimension is normal. Left ventricular systolic function is normal, estimated at 55-60%. The left ventricular diastolic function is grade I diastolic dysfunction. Right Ventricle Right ventricular systolic function is normal and with normal TAPSE 2.2 cm. Right ventricular chamber dimension is normal. Left Atria Left atrial chamber dimension is mildly enlarged. Right Atria Right atrial chamber dimension is normal. Aortic Valve The aortic valve is trileaflet. There is mild aortic valve sclerosis. There is no aortic valve stenosis. There is no aortic valve regurgitation. Pulmonic Valve There is no pulmonic regurgitation. Mitral Valve There is no mitral valve stenosis. There is mild mitral valve regurgitation. Tricuspid Valve There is mild tricuspid valve regurgitation. No pulmonary hypertension, estimated pulmonary arterial systolic pressure is 36 mmHg. Pericardium/Pleural There is no pericardial effusion. Inferior Vena Cava Normal inferior vena cava with >50% collapse upon inspiration consistent with normal right atrial pressure, 5 mmHg. Aorta The aortic root size at the sinus of Valsalva is normal. Left Ventricular Outflow Tract Name Value Normal LVOT 2D LVOT Diameter 2.0 cm LVOT Doppler LVOT Peak Gradient 2 mmHg LVOT Mean Gradient 1 mmHg LVOT VTI 17 cm LVOT VTI/AV VTI Ratio 0.7 LVOT Stroke Volume 53 ml LVOT CO 3.0 l/min LVOT CI 1.6 l/min/m2 Mitral Valve -
--- NOTE | 2021-11-29 08:23 | EST_ITS ---
Patient Info Name: Александр Villanueva Age: 71 years : 1950 Gender: Male Ht: 66 in Wt: 158 lbs BSA: 1.84 m2 HR: 62 bpm BP: 172 / 93 mmHg Heart Rhythm: Sinus Rhythm Exam Date: 11/29/2021 10:02 AM Exam Location: [facility] Patient Status: Outpatient Admit Date: 11/29/2021 Staff Ordering Physician: Thuan Arceo DO Attending Provider: Thuan Arceo DO Exercise Technologist: Sherrie Berg CT Exercise Physician: Thuan Arceo DO Exam Type: CA stress neelima w NM Study Info Indications R07.9 - Chest pain, unspecified A regadenoson stress test was performed. Summary 1. 1. Negative lexiscan stress test for ischemic ST changes by ECG criteria. 2. 2. Baseline hypertension. 3. 3. Nuclear scan to follow and will be reported separately. Please correlate with it. 4. 4. Patient informed of the above results. Protocol: Lexiscan Stress ECG Details Stage: REST Duration (min): 2 min : 1 sec HR (bpm): 69 SBP (mmHg): 172 DBP (mmHg): 93 Stage: REST Duration (min): 7 min : 51 sec HR (bpm): 61 SBP (mmHg): 172 DBP (mmHg): 93 Stage: STAGE 1 Duration (min): 1 min : 0 sec HR (bpm): 89 SBP (mmHg): 172 DBP (mmHg): 93 Stage: RECOVERY Duration (min): 1 min : 0 sec HR (bpm): 89 SBP (mmHg): 155 DBP (mmHg): 81 Stage: RECOVERY Duration (min): 2 min : 0 sec HR (bpm): 86 SBP (mmHg): 155 DBP (mmHg): 81 Stage: RECOVERY Duration (min): 3 min : 0 sec HR (bpm): 79 SBP (mmHg): 151 DBP (mmHg): 84 Stage: RECOVERY Duration (min): 3 min : 5 sec HR (bpm): 83 SBP (mmHg): 151 DBP (mmHg): 84 Rest HR: 61 bpm Peak HR: 92 bpm Rest Sys BP: 172 mmHg Peak Sys BP: 155 mmHg Max Pred HR: 147 bpm % Max Pred HR: 63 % Target HR: 125 bpm Max RPP: 14,260 bpm*mmHg Termination Reason: Completed protocol Cardiac Symptoms: Shortness of breath Total Time: 1 min : 0 sec Rest Huang BP: 93 mmHg Peak Huang BP: 81 mmHg Total Dose: 0.4 mg Resting ECG Sinus rhythm. Stress ECG No ST changes. Arrhythmias None. Report Signatures
== END 2021-11-29 07:46 | disposition home or self-care (01) ==
PROVIDERS: PCP Internal Medicine; Visit Provider Internal Medicine Cardiovascular Disease
DX: R06.00 Dyspnea, unspecified (principal); R07.9 Chest pain, unspecified
CPT/HCPCS: 78452; 93017; 93306; A9502; J2785

== ENCOUNTER 2021-12-13 07:40 | Outpatient (CLI) | payer MEDICARE, SELFPAY ==
[2021-12-13 08:08] LABS: Cholesterol 152 mg/dL (0-200); HDL Direct 43 mg/dL; Triglycerides 224 mg/dL (<150)
[2021-12-13 08:19] LABS: LDL Cholesterol Direct 76 mg/dL
== END 2021-12-13 07:41 | disposition home or self-care (01) ==
LOC: ANHLAB 07:42
PROVIDERS: PCP Internal Medicine; Visit Provider Internal Medicine Cardiovascular Disease
DX: E78.5 Hyperlipidemia, unspecified (principal)
CPT/HCPCS: 36415; 80061

== ENCOUNTER 2021-12-22 09:08 | Outpatient (CLI) | payer MEDICARE, SELFPAY ==
[2021-12-22 09:47] LABS: Basophils Absolute Auto 0.1 K/mm3 (0.0-0.1); Basophils Percent Auto 0.5 % (0.2-1.2); Eosinophils Absolute Auto 0.1 K/mm3 (0-0.3); Hematocrit 41.3 % (42.0-52.0); Hemoglobin 13.9 g/dL (14.0-18.0); Immature Granulocyte Absolute 0.11 K/mm3 (0.00-0.031); Immature Granulocyte Percent A 0.8 % (0-0.5); Lymphocytes Absolute Auto 1.57 K/mm3 (0.9-3.2); Lymphocytes Percent Auto 11.5 % (18.3-44.2); Mean Corpuscular HGB Conc 33.7 g/dl (32-36); Mean Corpuscular Hemoglobin 31.7 pg (26-34); Mean Corpuscular Volume 94.3 fl (80-100); Mean Platelet Volume 9.7 fl (7.4-10.4); Monocytes Absolute Auto 1.2 K/mm3 (0.1-0.6); Monocytes Percent Auto 8.7 % (2.6-8.5); Neutrophils Absolute Auto 10.6 K/mm3 (1.3-6.7); Neutrophils Percent Auto 77.5 % (45.5-73.1); Platelet Count Result 239 k/mm3 (150-375); Red Blood Count 4.38 M/mm3 (4.6-6.20); Red Cell Distribution Width 13.4 % (11.5-14.5); White Blood Count 13.6 K/mm3 (4.5-10.0)
[2021-12-22 09:59] LABS: Alanine Aminotransferase 22 U/L (6-50); Albumin Level 3.9 g/dL (3.5-5.1); Alkaline Phosphatase 123 U/L (38-126); Anion Gap 2 mmol/L (8-16); Aspartate Amino Transferase 22 U/L (17-59); Bilirubin,Total 1.2 mg/dL (0.2-1.3); Blood Urea Nitrogen 20 mg/dL (9-20); Calcium 8.6 mg/dL (8.4-10.2); Carbon Dioxide 33 mmol/L (22-30); Chloride 105 mmol/L (98-107); Estimated Glomerular Filt Rate 59; Glucose 92 mg/dL (65-110); Potassium 4.6 mmol/L (3.4-5.0); Sodium 140 mmol/L (137-145)
[2021-12-22 10:00] LABS: Prothrombin Time 13.1 Seconds (11.1-14.7)
== END 2021-12-22 09:09 | disposition home or self-care (01) ==
LOC: ANHLAB 09:09
PROVIDERS: PCP Internal Medicine; Visit Provider Internal Medicine Cardiovascular Disease
DX: R07.89 Other chest pain (principal); R06.00 Dyspnea, unspecified; Z01.810 Encounter for preprocedural cardiovascular examination
CPT/HCPCS: 36415; 80053; 85025; 85610

== ENCOUNTER 2021-12-26 14:55 | Observation (INO) | payer MEDICARE, SELFPAY ==
--- NOTE | ~2021-12-26 | CT_ITS ---
EXAMINATION: CT chest abdomen pelvis w con DATE: 12/26/2021 19:52 INDICATION: abnormal chest x-ray finding, leukocytosis . TECHNIQUE: Computed tomography (CT) of the chest, abdomen, and pelvis was performed with 100 mL Omnip aque-300 intravenous contrast. Automated exposure control and iterative reconstruction technique were employed. The dose-length product was 602.13 mGy-cm. COMPARISON: X-ray chest 12/18/2021, PET/CT 03/02/2021. CT chest 03/20/2021, chest abdomen pelvis 6. FINDINGS: Thoracic aorta: No dilation. Moderate arch calcification. No dissection. Lung parenchyma and airways: Reticulonodular and groundglass opacities in the dependent bilateral low er lobes, increased since the prior study, with areas of bronchiectasis and linear scar. Airways are patent. Thoracic inlet, axillae and chest wall: No thyroid or soft tissue mass. No axillary lymphadenopathy. Mediastinum: Stable subcarinal lymphadenopathy with numerous additional subcentimeter mediastinal lym ph nodes. Postsurgical change from gastric pull-through. Heart and pericardium: Cardiomegaly. No pericardial effusion.. Coronary artery calcifications: Heavy. Pleura: No effusion or mass. Thoracic bones: No acute osseous finding in the chest. ABDOMEN/PELVIS: Liver: Normal. Biliary/Gallbladder: Cholelithiasis. No bile duct dilation. Pancreas: No mass or duct dilation. Fatty atrophy. Spleen: Normal. Adrenals:No mass. Kidneys: Simple bilateral cysts. No obstructive calculi. No renal mass. No hydronephrosis. GI tract: No small or large bowel dilation. Appendix not visualized. Diverticulosis without diverticu litis. Mesentery/Peritoneum: No ascites, mass, or free air. Mild heterogeneity of mesenteric fat at the midl ine just above the level of the umbilicus. Focal 1 cm ovoid lesion, anterior to the descending colon, likely representing an epiploic appendage. Retroperitoneum: No mass. Atherosclerotic abdominal aortic and/or arterial calcifications. Pelvis: Pelvic organs are within normal limits Soft Tissues: Soft tissues and body wall unremarkable. Abdominopelvic bones: No acute osseous finding in the abdomen/pelvis. IMPRESSION: Pulmonary opacities may represent chronic and worsening bronchiolitis, as can be seen with atypical i nfection, asthma, aspiration, and small airways disease. Focal mesenteric contusion versus nonspecif ic fat edema in the upper midline abdomen. Reviewed, dictated and finalized at location K. IMPRESSION: Pulmonary opacities may represent chronic and worsening bronchiolitis, as can b e seen with atypical infection, asthma, aspiration, and small airways disease. Focal mesenteric contusion versus nonspecific fat edema in the upper midline a bdomen.
--- NOTE | ~2021-12-26 | XR_ITS ---
EXAMINATION: XR barium swallow modified DATE: 12/27/2021 09:59 INDICATION: Possible aspiration TECHNIQUE: Modified barium esophagram was performed by myself to administered fluoroscopy, in conjun ction with speech pathologist who administered barium in varying consistencies as per speech patholog ist documentation. This was recorded on tape. A single fluoroscopic spot image was recorded. The DAP for this procedure was 2.091 Gycm2. Fluoroscopy exposure time was 2.6 minutes. FINDINGS: Oral stage: Adequate function. Pharyngeal phase: Adequate function. Laryngeal penetration: Present with thin liquids. Aspiration: None. Laryngeal sensitivity: Present. IMPRESSION: Mild laryngeal penetration with thin liquids. Please refer to speech pathologist findings and specific feeding recommendations. Reviewed, dictated and finalized at location A. IMPRESSION: Mild laryngeal penetration with thin liquids. Please refer to speec h pathologist findings and specific feeding recommendations.
--- NOTE | ~2021-12-26 | XR_ITS ---
EXAMINATION: XR chest 2V DATE: 12/26/2021 15:39 INDICATION: Shortness of breath and cough, history of esophageal cancer TECHNIQUE: PA and lateral views of the chest are obtained. COMPARISON: None available FINDINGS: There are airspace opacities of the left lower lobe. No pleural effusion or pneumothorax. T he cardiomediastinal silhouette is normal. There is moderate thoracic spondylosis. There are changes of right total shoulder arthroplasty and gastric pull-through. IMPRESSION: 1. Left lower lobe opacities which could be atelectasis versus pneumonia however, given history of es ophageal cancer, further evaluation with chest CT is recommended. Reviewed, dictated and finalized at location A. IMPRESSION: 1. Left lower lobe opacities which could be atelectasis versus pneumonia evita young, given history of esophageal cancer, further evaluation with chest CT is olivia mmended.
[2021-12-26 15:02] VITALS: BP 92/78; PULSE 100; RESP 20; TEMP 36.3; O2SAT 94
--- NOTE | 2021-12-26 15:05 | ECG_ITS ---
Measurements Intervals [place] Rate: 87 P: 10 HI: 195 QRS: -46 QRSD: 91 T: 5 QT: 337 QTc: 408 Interpretive Statements SINUS RHYTHM PATTERN CONSISTENT WITH PULMONARY DISEASE LEFT ANTERIOR FASCICULAR BLOCK [QRS AXIS <= -45, QR IN I, RS IN II] COMPARED TO ECG 04/04/2020 10:25:13 NO SIGNIFICANT CHANGE Electronically Signed On 12-26-2021 19:38:52 CDT by Desiree Barreto M.D.
[2021-12-26 15:30] LABS: Basophils Absolute Auto 0.1 K/mm3 (0.0-0.1); Basophils Percent Auto 0.4 % (0.2-1.2); Eosinophils Absolute Auto 0.1 K/mm3 (0-0.3); Eosinophils Percent Auto 0.3 % (0-4.4); Hematocrit 43.7 % (42.0-52.0); Hemoglobin 14.3 g/dL (14.0-18.0); Immature Granulocyte Percent A 0.9 % (0-0.5); Lymphocytes Absolute Auto 1.51 K/mm3 (0.9-3.2); Lymphocytes Percent Auto 6.5 % (18.3-44.2); Mean Corpuscular HGB Conc 32.7 g/dl (32-36); Mean Corpuscular Hemoglobin 31.5 pg (26-34); Mean Corpuscular Volume 96.3 fl (80-100); Mean Platelet Volume 9.4 fl (7.4-10.4); Monocytes Absolute Auto 1.2 K/mm3 (0.1-0.6); Monocytes Percent Auto 5.2 % (2.6-8.5); Neutrophils Absolute Auto 20.2 K/mm3 (1.3-6.7); Neutrophils Percent Auto 86.7 % (45.5-73.1); Platelet Count Result 244 k/mm3 (150-375); Red Blood Count 4.54 M/mm3 (4.6-6.20); Red Cell Distribution Width 13.5 % (11.5-14.5); White Blood Count 23.3 K/mm3 (4.5-10.0)
[2021-12-26 15:39] LABS: Alanine Aminotransferase 22 U/L (6-50); Albumin Level 3.9 g/dL (3.5-5.1); Alkaline Phosphatase 120 U/L (38-126); Anion Gap 6 mmol/L (8-16); Aspartate Amino Transferase 22 U/L (17-59); Bilirubin,Total 1.6 mg/dL (0.2-1.3); Blood Urea Nitrogen 23 mg/dL (9-20); Calcium 8.9 mg/dL (8.4-10.2); Carbon Dioxide 29 mmol/L (22-30); Chloride 104 mmol/L (98-107); Estimated CRCL calculation 38 ml/min; Estimated Glomerular Filt Rate 50; Glucose 120 mg/dL (65-110); Potassium 4.5 mmol/L (3.4-5.0); Sodium 139 mmol/L (137-145)
[2021-12-26 15:46] LABS: Partial Thromboplastin Time 27.4 SECONDS (22.3-36.8)
[2021-12-26 15:51] LABS: NT Pro B Type Natriuretic Pept 227 pg/mL (5-100); Troponin I < 0.012 ng/mL (0.000-0.034)
[2021-12-26 16:08] LABS: INR 1.1
[2021-12-26 17:41] VITALS: BP 134/78; PULSE 72; TEMP 37.1; O2SAT 98
[2021-12-26 19:00] VITALS: BP 125/75; RESP 21; O2SAT 95
--- NOTE | 2021-12-26 19:07 | ED.SOB ---
HPI - SOB/Dyspnea General Chief Complaint: Shortness of Breath/Dyspnea Stated Complaint: SHORTNESS OF BREATH Time Seen by Provider: 12/26/21 18:48 Source: patient Mode of arrival: ambulatory Limitations: no limitations History of Present Illness HPI Narrative: This is a 71-year-old male that presents to the emergency department for chills. Reports he was scheduled to have a cardiac catheterization today. When he awoke he had shaking chills and felt short of breath so did not make it to his procedure. reports he did not have a fever at that time. Patient does report some mild congestion. Denies sore throat, abdominal pain, vomiting, or dysuria. Related Data Home Medications Medication Instructions Recorded Confirmed levothyroxine 75 mcg tablet 75 mcg PO DAILY 05/07/19 12/15/21 (Synthroid) pantoprazole 20 mg tablet,delayed 20 mg PO BID 05/07/19 12/15/21 release (Protonix) ascorbic acid (vitamin C) 500 mg 500 mg PO DAILY 10/20/20 12/15/21 capsule ferrous sulfate 325 mg (65 mg 325 mg PO DAILY 10/20/20 12/15/21 iron) tablet (iron) cyanocobalamin (vitamin B-12) 1,000 mcg PO DAILY 12/27/20 12/15/21 1,000 mcg tablet omega-3 fatty acids 1,000 mg 1,000 mg PO DAILY 02/09/21 12/15/21 capsule (Fish Oil Concentrate) cholecalciferol (vitamin D3) 25 25 mcg PO DAILY 04/27/21 12/15/21 mcg (1,000 unit) capsule atorvastatin 40 mg tablet 80 mg PO BID 11/03/21 12/15/21 magnesium citrate (Citrate of See Rx Instructions PO DAILY 11/03/21 12/15/21 Magnesia oral) pregabalin 75 mg capsule (Lyrica) 75 mg PO BID 11/03/21 12/15/21 aspirin 81 mg tablet,delayed 81 mg PO DAILY 12/08/21 12/15/21 release (Adult Low Dose Aspirin) Allergies Allergy/AdvReac Type Severity Reaction Status Date / Time No Known Allergies Allergy Verified 12/15/21 16:05 Review of Systems Review of Systems: CONSTITUTIONAL: Reports chills. Denies fever ENT: Reports congestion. Denies sore throat CARDIOVASCULAR: Denies chest pain, or edema. RESPIRATORY: Reports dyspnea and cough. GASTROINTESTINAL: Denies abdominal pain, nausea, vomiting GENITOURINARY: Denies dysuria or hematuria. All systems reviewed & are unremarkable except as noted in HPI and below PMFSH Past Medical History Medical History Biceps tendonitis on right COPD (chronic obstructive pulmonary disease) Degenerative joint disease of knee Diabetes mellitus End stage renal disease In on dialysis for 3 weeks. No problems since then. Esophageal cancer Fever GERD (gastroesophageal reflux disease) High cholesterol Hyperlipidemia Hypertension Hypothyroidism ERMELINDA (iron deficiency anemia) Knee injury Mass of right forearm Excise Pneumonia Radial tunnel syndrome of right upper extremity Rotator cuff tear arthropathy Stomach ulcer Strain of elbow and forearm TIA (transient ischemic attack) Vision changes Surgical History Surgical History H/O esophagogastroduodenoscopy H/O foot surgery H/O hernia repair H/O repair of rotator cuff History of colonoscopy History of esophagectomy 1999; had 14 years of follow up, no recurrence History of reverse total replacement of shoulder joint Status post left partial knee replacement 2012 Status post right partial knee replacement 11/09/2020 Family History Family History Mother Family history of cardiovascular disease Father Family history of cardiovascular disease Sibling Family history of cardiovascular disease Sibling Lung cancer Other Family history of malignant neoplasm Hypertension Social History Social History Social History: The patient stated that he used to smoke a drink a long time ago and no longer smokes or drinks. The patient lives with his who is the durable power atto
[2021-12-26 20:21] LABS: Influenza A QL RT-PCR Negative (Negative); Influenza B QL RT-PCR Negative (Negative); SARS-CoV-2 RNA PCR Negative
--- NOTE | 2021-12-26 22:10 | PM.IMHP ---
H&P: HPI History of Present Illness Date/Time: 12/26/21 22:10 Chief Complaint: shortness of breath Narrative: This is a 71-year-old male with past medical history significant for dyslipidemia, iron deficiency anemia, gastroesophageal reflux disease, COPD/emphysema, esophageal cancer. Patient presents to the emergency room due to chills and just not feeling well. preliminary workup was significant for chest x-ray with infiltrate. Patient has been having some shortness of breath as well has had a cough. patient has been admitted for further evaluation management and treatment. Review of Systems Review of Systems: chills, not feeling well. Constitutional: Constitutional: Reports chills, Denies night sweats and Reports weight loss Eyes: Eyes: Denies change in vision ENT: Denies dysphagia, Denies vertigo, Denies dizziness, Denies nasal congestion, Denies nasal discharge, Denies nasal obstruction and Denies odynophagia Cardiovascular: Cardiovascular: Denies chest pain, Denies irregular heart rhythm, Denies lightheadedness, Denies palpitations and Denies dyspnea on exertion Respiratory: Respiratory: Denies chest congestion and Denies excessive phlegm production Gastrointestinal: Gastrointestinal: Denies abdominal pain, Denies dyspepsia, Denies heartburn, Reports nausea and Reports vomiting Genitourinary: Genitourinary: Denies dysuria Musculoskeletal: Musculoskeletal: Denies arthralgias, Denies joint swelling and Denies muscle weakness Integumentary/Breasts: Skin/Breast: Denies rash Neurologic: Denies focal weakness and Denies Sensory deficit (Neuro) Psychiatric: Psychiatric: Reports no additional psychiatric complaints and Reports as per HPI Endocrine: Endocrine: Denies cold intolerance, Denies fatigue, Denies flushing, Denies heat intolerance, Denies polyphagia, Denies polydipsia and Denies palpitations Hematologic/Lymphatic: Hematologic/Lymphatic: Reports no additional hematologic/lymphatic complaints and Reports as per HPI Allergic/Immunologic: Allergic/Immunologic: Reports no additional allergic/immunologic complaints and Reports as per HPI PMFSH Past Medical History Medical History (Updated 12/27/21 @ 16:34 by ROMELIA LeyvaN-C) Biceps tendonitis on right COPD (chronic obstructive pulmonary disease) Degenerative joint disease of knee Diabetes mellitus End stage renal disease In on dialysis for 3 weeks. No problems since then. Esophageal cancer Fever GERD (gastroesophageal reflux disease) High cholesterol Hyperlipidemia Hypertension Hypothyroidism ERMELINDA (iron deficiency anemia) Knee injury Mass of right forearm Excise Pneumonia Radial tunnel syndrome of right upper extremity Rotator cuff tear arthropathy Stomach ulcer Strain of elbow and forearm TIA (transient ischemic attack) Vision changes Surgical History Surgical History H/O esophagogastroduodenoscopy H/O foot surgery H/O hernia repair H/O repair of rotator cuff History of colonoscopy History of esophagectomy 1999; had 14 years of follow up, no recurrence History of reverse total replacement of shoulder joint Status post left partial knee replacement 2012 Status post right partial knee replacement 11/09/2020 Family History Family History Mother Family history of cardiovascular disease Father Family history of cardiovascular disease Sibling Family history of cardiovascular disease Sibling Lung cancer Other Family history of malignant neoplasm Hypertension Social History Social History Social History: The patient stated that he used to smoke a drink a long time ago and no longer smokes or drinks. The patient lives with his who is the durable power sorting and folding supervisor for healthcare. The patient is a full code. The patient has 2 children. The patient i
[2021-12-26] MEDS: SODIUM CHLORIDE 0.9% IV 500 ML 999 ML IV CONT (23:02)
[2021-12-26] MEDS: PIPERACILLIN/TAZOBACTAM SOD 4.5 GM in SODIUM CHLORIDE 0.9% IV 100 ML 200 ML IVPB (23:02)
[2021-12-27] VITALS (15 sets, daily range): BP systolic 106–126; BP diastolic 58–69; PULSE 58–97; RESP 16–20; TEMP 36.2–36.9; O2SAT 94–98; BMI 23.8
--- NOTE | 2021-12-27 00:28 | ADMGEN ---
This patient, Александр Villanueva, was admitted to Medical Room 257-. Patient/family oriented to hospital policies and general routines including ID bracelet, bed and alarms, visiting hours, pain management, procedures, bathroom and other care routines, personal items, smoking policy, room service/diet, and visiting hours. Information on how to activate the Rapid Response Team has been discussed. Patient/Family are encouraged to report perceived risks to care and to ask questions if they do not understand what they are told or what they should do.
[2021-12-27] MEDS: SODIUM CHLORIDE 0.9% IV 1,000 ML 125 ML IV CONT ×3 (01:01→21:51)
[2021-12-27] MEDS: LEVOTHYROXINE SODIUM 75 MCG TABLET PO (06:14)
[2021-12-27] MEDS: UMECLIDINIUM BROMIDE 62.5 MCG ELLIPTA 1 PUFF INHALATION (08:43)
[2021-12-27 08:47] LABS: Basophils Percent Auto 0.3 % (0.2-1.2); Eosinophils Absolute Auto 0.1 K/mm3 (0-0.3); Hematocrit 37.2 % (42.0-52.0); Hemoglobin 12.6 g/dL (14.0-18.0); Immature Granulocyte Absolute 0.09 K/mm3 (0.00-0.031); Immature Granulocyte Percent A 0.7 % (0-0.5); Lymphocytes Percent Auto 7.3 % (18.3-44.2); Mean Corpuscular HGB Conc 33.9 g/dl (32-36); Mean Corpuscular Hemoglobin 32.1 pg (26-34); Mean Corpuscular Volume 94.7 fl (80-100); Mean Platelet Volume 9.6 fl (7.4-10.4); Monocytes Absolute Auto 0.7 K/mm3 (0.1-0.6); Monocytes Percent Auto 5.8 % (2.6-8.5); Neutrophils Absolute Auto 10.4 K/mm3 (1.3-6.7); Neutrophils Percent Auto 84.9 % (45.5-73.1); Platelet Count Result 207 k/mm3 (150-375); Red Blood Count 3.93 M/mm3 (4.6-6.20); Red Cell Distribution Width 13.2 % (11.5-14.5); White Blood Count 12.3 K/mm3 (4.5-10.0)
--- NOTE | 2021-12-27 09:00 | PM.IMPN ---
Progress Note: A&P Assessment and Plan (1) Aspiration pneumonia: Qualifiers: Aspiration pneumonia type: unspecified Laterality: bilateral Lung location: lower lobe of lung Qualified Code(s): J69.0 - Pneumonitis due to inhalation of food and vomit Code(s): J69.0 - Pneumonitis due to inhalation of food and vomit Status: Acute Assessment and Plan: CT showed pulmonary opacities, may represent worsening bronchiolitis seen with atypical infection Seems to be from asipration Modified barium swallow Did show slight aspiration with thin liquids. patient was started IV Zosyn WBCs were 23.3 upon admission her 12.3 today. Continue trend labs sputum culture ordered transition to oral therapy when appropriate GI consult to be considered for esophageal stricture (2) COPD (chronic obstructive pulmonary disease): Code(s): J44.9 - Chronic obstructive pulmonary disease, unspecified Status: Chronic Assessment and Plan: patient is not seem to be in acute exacerbation at this time no complaints of increasing shortness of breath, cough with sputum changes, wheezes continue home inhaler Trend respiratory status no oxygen requirements at this time (3) GERD (gastroesophageal reflux disease): Code(s): K21.9 - Gastro-esophageal reflux disease without esophagitis Status: Acute Assessment and Plan: continue home Protonix (4) Hyperlipidemia: Code(s): E78.5 - Hyperlipidemia, unspecified Status: Acute Assessment and Plan: continue atorvastatin 80 mg p.o. b.i.d. lipid panel was drawn on 12/13/2021 showed triglycerides 224, cholesterol 152, LDL 76, HDL 43 (5) Hypothyroidism: Code(s): E03.9 - Hypothyroidism, unspecified Status: Chronic Assessment and Plan: continue home levothyroxine 75 mcg p.o. daily check a TSH in the a.m. adjust therapy as indicated Time Spent With Patient Time with patient: 25 - 35 minutes Subjective Date/time seen: 12/27/21899 Interval history: 12/27/21899 patient stated that he is feeling about the same today. He is a little short of breath however it is better. He denies any chest pain nausea, vomiting, diarrhea he did say that he was little constipated. He also states that he has had coughing with eating and has been getting clear with a dark spot in the middle of it. He said all started yesterday morning when he had the shakes he was so cold that he could not get comfortable with his blue jeans and 4 blankets on. He did state that he does cough with eating a lot. A modified barium swallow was done and did show him aspirating thin liquids. Speech therapist also told me that the patient told her that he is getting food stuck in his throat and will go down which is causing him to become nauseated and vomit. However there was no noted on the modified barium swallow. it is noted that he is responding the antibiotics at this time. Review of Systems Review of Systems: All systems reviewed & are unremarkable except as noted in HPI and below Exam Const: General: cooperative, no acute distress, well developed, alert and awake Nutritional Appearance: well nourished Orientation/consciousness: patient oriented x3 Limitations: no limitations HENMT: Head: normal to inspection Ears: hearing grossly normal bilaterally General nose exam: Normal external nose present Mouth: Yes Normal oral and palatal mucosa present, Yes lip normal and Yes tongue normal Teeth and gingiva: abnormal tooth and associated gingiva and poor dentition Eyes: General: appearance normal, both eyes and all related structures Neck: Neck: normal visual inspection, full ROM, trachea midline and supple Chest: Chest palpation & inspection: normal inspection of the chest Resp: Effort & Inspection: normal respiratory effort and able to speak in complete sentences Auscultat
[2021-12-27 09:06] LABS: Alanine Aminotransferase 16 U/L (6-50); Alkaline Phosphatase 104 U/L (38-126); Anion Gap 5 mmol/L (8-16); Aspartate Amino Transferase 17 U/L (17-59); Blood Urea Nitrogen 19 mg/dL (9-20); Calcium 7.9 mg/dL (8.4-10.2); Carbon Dioxide 24 mmol/L (22-30); Chloride 108 mmol/L (98-107); Estimated CRCL calculation 50 ml/min; Estimated Glomerular Filt Rate > 60; Glucose 86 mg/dL (65-110); Potassium 3.8 mmol/L (3.4-5.0); Sodium 137 mmol/L (137-145)
--- NOTE | 2021-12-27 09:10 | PCSTNOTE ---
Please refer to the Bedside Swallow Evaluation in the EMR. Please note, silent aspiration cannot be ruled out at bedside.
[2021-12-27] MEDS: ATORVASTATIN 40 MG TABLET 80 MG PO (09:12)
[2021-12-27] MEDS: ENOXAPARIN 40 MG/0.4 ML SYRINGE SUB-Q (09:12)
[2021-12-27] MEDS: PANTOPRAZOLE SOD SESQUIHYDRATE 20 MG TAB PO ×2 (09:13→17:58)
[2021-12-27] MEDS: CYANOCOBALAMIN 1,000 MCG TABLET 1000 MCG PO (09:13)
[2021-12-27] MEDS: OMEGA 3 POLYUNSAT FATTY ACIDS 1 GM CAP PO (09:13)
[2021-12-27] MEDS: FERROUS SULFATE 324 MG TABLET PO (09:13)
[2021-12-27] MEDS: CHOLECALCIFEROL 1,000 UNITS TABLET 1000 UNITS PO (09:13)
[2021-12-27] MEDS: ASCORBIC ACID 500 MG TABLET PO (09:13)
[2021-12-27] MEDS: ASPIRIN 81 MG ENTERIC TABLET PO (09:13)
[2021-12-27] MEDS: PREGABALIN (*CRX) 75 MG CAPSULE PO ×2 (09:15→17:58)
--- NOTE | 2021-12-27 09:58 | PCSTNOTE ---
Please refer to the Modified Barium Swallow Evaluation in the EMR.
[2021-12-28] VITALS (7 sets, daily range): BP systolic 111–131; BP diastolic 72–85; PULSE 64–87; RESP 16; TEMP 36.4; O2SAT 94–98
[2021-12-28] MEDS: LEVOTHYROXINE SODIUM 75 MCG TABLET PO (05:29)
[2021-12-28] MEDS: SODIUM CHLORIDE 0.9% IV 1,000 ML 125 ML IV CONT (05:31)
[2021-12-28 06:38] LABS: Basophils Percent Auto 0.5 % (0.2-1.2); Eosinophils Absolute Auto 0.2 K/mm3 (0-0.3); Eosinophils Percent Auto 1.8 % (0-4.4); Hematocrit 38.2 % (42.0-52.0); Hemoglobin 12.5 g/dL (14.0-18.0); Immature Granulocyte Absolute 0.06 K/mm3 (0.00-0.031); Immature Granulocyte Percent A 0.7 % (0-0.5); Lymphocytes Absolute Auto 1.37 K/mm3 (0.9-3.2); Lymphocytes Percent Auto 16.2 % (18.3-44.2); Mean Corpuscular HGB Conc 32.7 g/dl (32-36); Mean Corpuscular Hemoglobin 31.7 pg (26-34); Mean Platelet Volume 9.6 fl (7.4-10.4); Monocytes Absolute Auto 0.7 K/mm3 (0.1-0.6); Monocytes Percent Auto 8.2 % (2.6-8.5); Neutrophils Absolute Auto 6.1 K/mm3 (1.3-6.7); Neutrophils Percent Auto 72.6 % (45.5-73.1); Platelet Count Result 219 k/mm3 (150-375); Red Blood Count 3.94 M/mm3 (4.6-6.20); Red Cell Distribution Width 13.2 % (11.5-14.5); White Blood Count 8.5 K/mm3 (4.5-10.0)
[2021-12-28 06:43] LABS: Alanine Aminotransferase 17 U/L (6-50); Albumin Level 3.3 g/dL (3.5-5.1); Alkaline Phosphatase 106 U/L (38-126); Anion Gap 4 mmol/L (8-16); Aspartate Amino Transferase 20 U/L (17-59); Bilirubin,Total 1.4 mg/dL (0.2-1.3); Blood Urea Nitrogen 14 mg/dL (9-20); Carbon Dioxide 25 mmol/L (22-30); Chloride 109 mmol/L (98-107); Estimated CRCL calculation 46 ml/min; Estimated Glomerular Filt Rate 59; Glucose 95 mg/dL (65-110); Potassium 3.9 mmol/L (3.4-5.0); Sodium 138 mmol/L (137-145)
--- NOTE | 2021-12-28 07:48 | PM.IMPN ---
Progress Note: A&P Assessment and Plan (1) Aspiration pneumonia: Qualifiers: Aspiration pneumonia type: unspecified Laterality: bilateral Lung location: lower lobe of lung Qualified Code(s): J69.0 - Pneumonitis due to inhalation of food and vomit Code(s): J69.0 - Pneumonitis due to inhalation of food and vomit Status: Acute Assessment and Plan: CT showed pulmonary opacities, may represent worsening bronchiolitis seen with atypical infection Seems to be from aspiration Modified barium swallow Did show slight aspiration with thin liquids. IV Zosyn, change to PO Augmentin WBCs were 23.3 upon admission, 8.5 today. Continue trend labs sputum culture ordered Blood culture NGTD GI consult to be considered for esophageal stricture (2) COPD (chronic obstructive pulmonary disease): Code(s): J44.9 - Chronic obstructive pulmonary disease, unspecified Status: Chronic Assessment and Plan: patient is not seem to be in acute exacerbation at this time no complaints of increasing shortness of breath, cough with sputum changes, wheezes continue home inhaler Trend respiratory status no oxygen requirements at this time (3) GERD (gastroesophageal reflux disease): Code(s): K21.9 - Gastro-esophageal reflux disease without esophagitis Status: Acute Assessment and Plan: continue home Protonix (4) Hyperlipidemia: Code(s): E78.5 - Hyperlipidemia, unspecified Status: Acute Assessment and Plan: continue atorvastatin 80 mg p.o. b.i.d. lipid panel was drawn on 12/13/2021 showed triglycerides 224, cholesterol 152, LDL 76, HDL 43 (5) Hypothyroidism: Code(s): E03.9 - Hypothyroidism, unspecified Status: Chronic Assessment and Plan: continue home levothyroxine 75 mcg p.o. daily check a TSH in the a.m. adjust therapy as indicated Time Spent With Patient Time with patient: Greater than 35 minutes Subjective Date/time seen: 12/28/21 07:48 Interval history: 12/28/21 12/27/21 0900 patient stated that he is feeling about the same today. He is a little short of breath however it is better. He denies any chest pain nausea, vomiting, diarrhea he did say that he was little constipated. He also states that he has had coughing with eating and has been getting clear with a dark spot in the middle of it. He said all started yesterday morning when he had the shakes he was so cold that he could not get comfortable with his blue jeans and 4 blankets on. He did state that he does cough with eating a lot. A modified barium swallow was done and did show him aspirating thin liquids. Speech therapist also told me that the patient told her that he is getting food stuck in his throat and will go down which is causing him to become nauseated and vomit. However there was no noted on the modified barium swallow. it is noted that he is responding the antibiotics at this time. Review of Systems Review of Systems: All systems reviewed & are unremarkable except as noted in HPI and below Exam Const: General: cooperative, no acute distress, well developed, alert and awake Nutritional Appearance: well nourished Orientation/consciousness: patient oriented x3 Limitations: no limitations HENMT: Head: normal to inspection Ears: hearing grossly normal bilaterally General nose exam: Normal external nose present Mouth: Yes Normal oral and palatal mucosa present, Yes lip normal and Yes tongue normal Teeth and gingiva: abnormal tooth and associated gingiva and poor dentition Eyes: General: appearance normal, both eyes and all related structures Neck: Neck: normal visual inspection, full ROM, trachea midline and supple Chest: Chest palpation & inspection: normal inspection of the chest Resp: Effort & Inspection: normal respiratory effort and able to speak in complete sentences Ausculta
[2021-12-28] MEDS: CYANOCOBALAMIN 1,000 MCG TABLET 1000 MCG PO (08:35)
[2021-12-28] MEDS: ENOXAPARIN 40 MG/0.4 ML SYRINGE SUB-Q (08:35)
[2021-12-28] MEDS: PREGABALIN (*CRX) 75 MG CAPSULE PO (08:35)
[2021-12-28] MEDS: PANTOPRAZOLE SOD SESQUIHYDRATE 20 MG TAB PO (08:35)
[2021-12-28] MEDS: OMEGA 3 POLYUNSAT FATTY ACIDS 1 GM CAP PO (08:35)
[2021-12-28] MEDS: CHOLECALCIFEROL 1,000 UNITS TABLET 1000 UNITS PO (08:35)
[2021-12-28] MEDS: FERROUS SULFATE 324 MG TABLET PO (08:35)
[2021-12-28] MEDS: ASCORBIC ACID 500 MG TABLET PO (08:35)
[2021-12-28] MEDS: ATORVASTATIN 40 MG TABLET 80 MG PO (08:35)
[2021-12-28] MEDS: ASPIRIN 81 MG ENTERIC TABLET PO (08:35)
[2021-12-28] MEDS: AMOXICILLIN/CLAVULANATE K 875-125 MG TAB 1 TABLET PO (08:42)
[2021-12-28] MEDS: UMECLIDINIUM BROMIDE 62.5 MCG ELLIPTA 1 PUFF INHALATION (08:52)
[2021-12-28 11:06] LABS: Free T4 Free Thyroxine Reflex 1.41 ng/dL (0.78-2.19)
[2021-12-28 11:53] LABS: Total Triiodothyronine (T3) 0.97 NG/ML (0.97-1.69)
--- NOTE | 2021-12-28 12:00 | PM.DS ---
DS: Admitting Diagnosis Discharge Date 12/28/21 1200 Admitting Diagnosis Aspiration pneumonia DS: Discharge Diagnosis Discharge Diagnosis (1) Aspiration pneumonia: Qualifiers: Aspiration pneumonia type: unspecified Laterality: bilateral Lung location: lower lobe of lung Qualified Code(s): J69.0 - Pneumonitis due to inhalation of food and vomit Code(s): J69.0 - Pneumonitis due to inhalation of food and vomit Status: Acute Assessment and Plan: CT showed pulmonary opacities, may represent worsening bronchiolitis seen with atypical infection Seems to be from aspiration Modified barium swallow Did show slight aspiration with thin liquids. IV Zosyn, change to PO Augmentin WBCs were 23.3 upon admission, 8.5 today. Continue trend labs sputum culture ordered Blood culture NGTD GI consult to be considered for esophageal stricture (2) COPD (chronic obstructive pulmonary disease): Code(s): J44.9 - Chronic obstructive pulmonary disease, unspecified Status: Chronic Assessment and Plan: patient is not seem to be in acute exacerbation at this time no complaints of increasing shortness of breath, cough with sputum changes, wheezes continue home inhaler Trend respiratory status no oxygen requirements at this time (3) GERD (gastroesophageal reflux disease): Code(s): K21.9 - Gastro-esophageal reflux disease without esophagitis Status: Acute Assessment and Plan: continue home Protonix (4) Hyperlipidemia: Code(s): E78.5 - Hyperlipidemia, unspecified Status: Acute Assessment and Plan: continue atorvastatin 80 mg p.o. b.i.d. lipid panel was drawn on 12/13/2021 showed triglycerides 224, cholesterol 152, LDL 76, HDL 43 (5) Hypothyroidism: Code(s): E03.9 - Hypothyroidism, unspecified Status: Chronic Assessment and Plan: continue home levothyroxine 75 mcg p.o. daily check a TSH in the a.m. adjust therapy as indicated DS: Summary Hospital Course Hospital Course: patient is a 71-year-old male with past medical history of hyperlipidemia, hypertension, COPD and diabetes who presented to the ED with complaints of chills. Patient stated that he awoke and had shaking chills with a pair of blue jeans on and 4 blankets which still did make him comfortable. Upon arrival patient was noted to have an elevated white count of 23. CT of the chest abdomen and pelvis showed pulmonary opacities seen with atypical infection including asthma, aspiration, small airway disease. Patient did undergo a speech eval was and a modified barium swallow which did show that the patient was most likely aspirating. Patient also noted that he coughs after eating and takes very large bites. It was determined that the patient would need mildly thickened liquids. Patient was started on IV Zosyn and and responded well. Blood cultures have been no growth to date thus far. Patient feels a lot better today denies any chest pain, shortness of breath, nausea, vomiting, diarrhea, constipation, weakness or fatigue. He did say that he occasionally is still coughing however he is worried about doing the thickened liquids. I feel like this patient could really benefit from a GI consult for an EGD for possible esophageal narrowing however I think that he is stable enough for discharge and can do this outpatient. Labs and vital signs are stable. Follow up appointment has been made with Dr. Costello, and it appears that the patient has seen Dr. Blackwell in the past, however, will refer him back to him for follow up of dysphasia. Patient is really wanting to go home. Did further discuss the need to continue with the thickened liquids. Appointment was made for follow up with Dr. Blackwell's office. Teaching was provided to the patient about the importance of thickened liquids and the follow up that is needed. Status a
--- NOTE | 2021-12-28 14:01 | PC.NURSE ---
Patient educated on thickened liquid diet and sent home with thickened liquid supplies. Patient to follow up outpatient with speech therapy for further evaluation.
== END 2021-12-28 16:16 | disposition home or self-care (01) ==
LOC: ANHED 22:23 → ANH2MED 12-27 11:35
PROVIDERS: Emergency Medicine; Physician Assistant; Admitting Provider Internal Medicine; Emergency Provider Emergency Medicine; PCP Internal Medicine; Visit Provider Nurse Practitioner
DX: J69.0 Pneumonitis due to inhalation of food and vomit (principal); E86.0 Dehydration; J44.9 Chronic obstructive pulmonary disease, unspecified; I10 Essential (primary) hypertension; E78.5 Hyperlipidemia, unspecified; E11.9 Type 2 diabetes mellitus without complications; E03.9 Hypothyroidism, unspecified; D50.9 Iron deficiency anemia, unspecified; K21.9 Gastro-esophageal reflux disease without esophagitis; Z86.73 Personal history of transient ischemic attack (TIA), and cerebral infarction without residual deficits; Z85.01 Personal history of malignant neoplasm of esophagus; Z90.49 Acquired absence of other specified parts of digestive tract; Z87.891 Personal history of nicotine dependence; Z79.51 Long term (current) use of inhaled steroids; Z79.82 Long term (current) use of aspirin; Z20.822 Contact with and (suspected) exposure to COVID-19
CPT/HCPCS: 36415; 71046; 71260; 74177; 80053; 83735; 83880; 84439; 84443; 84480; 84484; 85025; 85610; 85730; 87040; 87502; 92526; 92610; 92611; 93005; 94640; 96361; 96365; 96366; 96372; 99285; A9270; C9803; G0378; J1650; J2543; J7030; J7040; Q9967; U0003; U0005

== ENCOUNTER 2022-01-29 10:00 | Outpatient (RCR) | payer MEDICARE, SELFPAY ==
--- NOTE | 2022-01-12 15:16 | STOPEVAL ---
Thank you for referring Александр Villanueva to [facility].? The patient is scheduled to be seen for therapy? 2x/week for 4 weeks. Please review, sign, date and return this plan of care MARCIANO. I agree with and certify that the following plan of care is medically necessary. Referring Physician Date Attending Provider: RICHY Leyva Referring Provider: RICHY Leyva Therapy Assessment Status Assessment Status Assessment Status Evaluation Outpatient Past Medical History Neurological History Hx Transient Ischemic Attacks (TIA) Yes: ~2014 Cardiovascular History Hx Hypercholesterolemia Yes Hx Hypertension Yes Hx Other Cardiac Disorders Yes: blocked artery Respiratory History Hx Bronchitis Yes Hx Chronic Obstructive Pulmonary Disease Yes: dx 03/2019 (COPD) Hx Pneumonia Yes: HX OF Gastrointestinal History Hx Diverticulitis Yes Hx Esophageal Disorders Yes: esophageal cancer 1999- surgery- 2/3 of esophagus removed & 1/3 of stomach Hx Gastroesophageal Reflux Disease Yes Hx Hernia Yes: CHILD AND ADULT- MULTIPLE REPAIRS UMBILICAL & INGUINAL Hx Other Gastrointestinal Disorders Yes: egd 05/2019 looked good ;07/25/[address] [place] [facility] History Hx Benign Prostatic Hyperplasia Yes Hx Renal Disease Yes: kidney failure 1990 dialysis 3 weeks-nml function now, R/T KIDNEY INFECTION Hx Transurethral Resection Yes: TURP JUL 2018 Musculoskeletal History Hx Arthritis Yes Hx Joint Replacement Yes: partial L-knee~2009, right shoulder replacement- 2005, partial right knee Hx Orthopedic Surgery Yes: arthroscopic left and right knee, bilat carpal tunnel,lt rotator cuff lef Hx Other Musculoskeletal Disorders Yes: RT MENISCUS TEAR repair, SEVERE MEDIAL COMPARTMENT OA RT KNEE Hematological History Hx Anemia Yes Endocrine History Hx Hypothyroidism Yes HEENT History Hx Cataracts Yes: bilat cataract implants & LASER SURGERY Hx Tonsillectomy Yes: CHILD Hx Sinus Problems Yes: ALLERGIES Hx Dental Problems Yes: UPPER FULL DENTURES, Integumentary History Hx Shingles Yes: 2012 Hx Other Skin Disorders Yes: PRE-CANCEROUS LESIONS REMOVED Reproductive History Hx Other Reproductive Disorders Yes: VASECTOMY Psychosoci
--- NOTE | 2022-01-18 15:20 | PCSTNOTE ---
Patient called & cancelled scheduled appointment this date due to family emergency.]
--- NOTE | 2022-01-22 09:07 | PCSTNOTE ---
Patient did not show up for scheduled appointment this date.
--- NOTE | 2022-01-29 14:00 | PCSTNOTE ---
Admitting Provider: Attending Provider: RICHY Leyva Patient:Александр Villanueva Date of :1950 Patient was seen for an initial Swallowing Evaluation on 01/12/22 following hospitalization which revealed risk of aspiration. He returned for one swallowing treatment and was instructed in the use of safe swallowing strategies and swallowing strengthening exercises, demonstrating good understanding of strategies and exercises. He cancelled the next two sessions secondary to family emergency issues, then returned this date, 01/29/22 for a follow-up treatment session. The patient reports he has only been completing two exercises that he considered to be the hardest exercises and therefore useful: hard, effortful swallows with chin tuck against resistance and the Stephanie procedure. He stated he was not completing the other exercises because he felt they were already easy, including laryngeal elevation and other base of tongue retraction exercises. He indicated that he is now slowing down consuming meals, taking small bites and sips, and chewing his food more thoroughly. He also indicated he is using head flexion to facilitate safe swallows more consistently and that his reminds him to do so if he forgets. Patient indicated that because he has improved the use of safe swallowing strategies and is exhibiting minimal difficulty swallowing meals and snacks and he feels he is independent with the only two exercises he completes, he wanted to be discharged from direct Speech Therapy at this time. Patient is being discharged at this time with all goals achieved. Thank you for referring this patient to [facility]. Please review, sign, date and return this discharge summary MARCIANO. I have been updated about the patient's current status and I agree with discharge from the above service at this time. Referring Physician Date
== END 2022-01-30 08:42 | disposition home or self-care (01) ==
LOC: ANHST 10:00
PROVIDERS: PCP Internal Medicine; Referring Provider Nurse Practitioner; Visit Provider Nurse Practitioner
DX: J69.0 Pneumonitis due to inhalation of food and vomit (principal)
CPT/HCPCS: 92526; 92610

== ENCOUNTER 2022-02-27 08:20 | Outpatient (CLI) | payer MEDICARE, SELFPAY ==
--- NOTE | ~2022-02-27 | CT_ITS ---
EXAMINATION:CT diagnostic chest w con DATE: 02/27/2022 08:54 INDICATION: Malignant neoplasm of the esophagus. TECHNIQUE: Computed tomography (CT) of the chest was performed with 75 mL Omnipaque 350 intravenous c ontrast. Automated exposure control and iterative reconstruction technique were employed. The dose-le ngth product (DLP) was 167.63 mGy-cm. COMPARISON: Chest CT 12/26/2021, 03/20/21 FINDINGS: There is mild emphysema. Calcified right lung nodules and calcified right hilar and mediast inal lymph nodes are consistent with old adenomatous disease. There are groundglass opacities and sep nirmal thickening in the lungs with an inferior and posterior predominance. There are tree-in-bud opacit ies in the lower lobes and posterior segment right upper lobe. No pleural effusion. There are changes of esophagectomy and gastric pull-through procedure. Calcifications in the spleen are consistent wit h old granulomatous disease. There is a 9 mm cyst in right kidney. The heart size is normal. There ar e coronary artery calcifications. No pericardial effusion. There is a right shoulder arthroplasty. Th ere is severe cervical spondylosis and mild thoracic spondylosis. IMPRESSION: 1. No evidence of metastatic disease. 2. Diffuse lung disease with a posterior and lower lung predominance with improvement from 12/26/21, l ikely chronic pneumonia. 3. Mild emphysema. Reviewed, dictated and finalized at location A. IMPRESSION: 1. No evidence of metastatic disease. 2. Diffuse lung disease with a posterior and lower lung predominance with impro vement from 12/26/21, likely chronic pneumonia. 3. Mild emphysema.
[2022-02-27 08:44] LABS: Estimated Glomerular Filt Rate > 60
== END 2022-02-27 08:21 | disposition home or self-care (01) ==
PROVIDERS: PCP Physician Assistant Medical; Visit Provider Internal Medicine Hematology & Oncology
DX: C15.9 Malignant neoplasm of esophagus, unspecified (principal); J43.9 Emphysema, unspecified; R91.8 Other nonspecific abnormal finding of lung field
CPT/HCPCS: 71260; Q9967

== ENCOUNTER 2022-03-06 09:00 | Outpatient (CLI) | payer MEDICARE, SELFPAY ==
[2022-03-06 09:29] LABS: Basophils Absolute Auto 0.1 K/mm3 (0.0-0.1); Basophils Percent Auto 0.4 % (0.2-1.2); Eosinophils Absolute Auto 0.1 K/mm3 (0-0.3); Eosinophils Percent Auto 0.4 % (0-4.4); Hematocrit 44.3 % (42.0-52.0); Hemoglobin 14.8 g/dL (14.0-18.0); Immature Granulocyte Absolute 0.28 K/mm3 (0.00-0.031); Immature Granulocyte Percent A 1.7 % (0-0.5); Lymphocytes Absolute Auto 1.55 K/mm3 (0.9-3.2); Lymphocytes Percent Auto 9.2 % (18.3-44.2); Mean Corpuscular HGB Conc 33.4 g/dl (32-36); Mean Corpuscular Hemoglobin 31.8 pg (26-34); Mean Corpuscular Volume 95.1 fl (80-100); Mean Platelet Volume 9.4 fl (7.4-10.4); Monocytes Absolute Auto 1.2 K/mm3 (0.1-0.6); Monocytes Percent Auto 7.2 % (2.6-8.5); Neutrophils Absolute Auto 13.7 K/mm3 (1.3-6.7); Neutrophils Percent Auto 81.1 % (45.5-73.1); Platelet Count Result 328 k/mm3 (150-375); Red Blood Count 4.66 M/mm3 (4.6-6.20); Red Cell Distribution Width 13.5 % (11.5-14.5); White Blood Count 16.9 K/mm3 (4.5-10.0)
[2022-03-06 09:34] LABS: Blood Urea Nitrogen 25 mg/dL (8-26); Carbon Dioxide 28 mmol/L (22-30); Chloride 104 mmol/L (98-109); Estimated Glomerular Filt Rate 54; Glucose 82 mg/dL (70-105); Ionized Calcium (POC) 1.19 mmol/L (1.11-1.31); Potassium 4.5 mmol/L (3.5-4.9); Sodium 140 mmol/L (138-146)
[2022-03-06 14:17] LABS: Alanine Aminotransferase 27 U/L (6-50); Albumin Level 4.3 g/dL (3.5-5.1); Alkaline Phosphatase 121 U/L (38-126); Anion Gap 14 mmol/L (8-16); Aspartate Amino Transferase 25 U/L (17-59); Blood Urea Nitrogen 23 mg/dL (9-20); Calcium 8.9 mg/dL (8.4-10.2); Carbon Dioxide 25 mmol/L (22-30); Chloride 101 mmol/L (98-107); Estimated Glomerular Filt Rate 59; Glucose 76 mg/dL (65-110); Potassium 4.7 mmol/L (3.4-5.0); Sodium 140 mmol/L (137-145)
== END 2022-03-06 09:01 | disposition home or self-care (01) ==
LOC: ANHLAB 09:02
PROVIDERS: PCP Physician Assistant Medical; Visit Provider Internal Medicine Hematology & Oncology
DX: C15.9 Malignant neoplasm of esophagus, unspecified (principal)
CPT/HCPCS: 36415; 80047; 80053; 85025

== ENCOUNTER 2022-05-15 11:55 | Inpatient (IN) | payer MEDICARE, SELFPAY ==
[2022-05-15] VITALS (8 sets, daily range): BP systolic 98–115; BP diastolic 57–73; PULSE 91–127; RESP 16–20; TEMP 36.6–37.4; O2SAT 92–98; BMI 26.3
--- NOTE | ~2022-05-15 | XR_ITS ---
EXAMINATION: XR chest 1V portable DATE: 05/15/2022 12:45 INDICATION: Cough and fever. TECHNIQUE: A single frontal view of the chest was obtained. COMPARISON: Chest 2 views 12/18/2021, chest CT 02/27/2022 FINDINGS: A calcified right lung nodule and calcified right hilar lymph nodes are consistent with old granulomatous disease. There are airspace and interstitial opacities in the mid and lower lung zones . No pleural effusion or pneumothorax. The heart size is normal. There are prominent paracardial fat pads. There is a total right shoulder arthroplasty. IMPRESSION: 1. Airspace and interstitial opacities in the mid and lower lung zones with slight interval worsening , likely chronic infection. Reviewed, dictated and finalized at location A. ING MACHINE TENDER IMPRESSION: 1. Airspace and interstitial opacities in the mid and lower lung zones with sli ght interval worsening, likely chronic infection.
--- NOTE | ~2022-05-15 | XR_ITS ---
EXAMINATION: XR barium swallow modified DATE: 05/16/2022 09:16 INDICATION: Dysphagia. TECHNIQUE: The patient was given barium-containing material of multiple consistencies to swallow by darien martell speech pathologist while I performed fluoroscopy. Dose-area product was 2.091 Gy-cm2. 2.6 minutes fluoroscopy time FINDINGS: Oral Stage: Within functional limits Pharyngeal Phase: Consistent trace penetration with thin liquids Cervical/Esophageal Stage: Within functional limits IMPRESSION: Modified esophagram findings as above. Please refer to the speech therapy report for spec [facility] recommendations. Reviewed, dictated and finalized at Location [facility]. Reviewed, dictated and finalized at location A. MOLDER MEAT IMPRESSION: Modified esophagram findings as above. Please refer to the speech t herapy report for specific recommendations.
--- NOTE | 2022-05-15 12:04 | ECG_ITS ---
Measurements Intervals [place] Rate: 129 P: 14 NC: 164 QRS: -61 QRSD: 93 T: 16 QT: 297 QTc: 435 Interpretive Statements SINUS TACHYCARDIA LEFT ANTERIOR FASCICULAR BLOCK BORDERLINE T WAVE ABNORMALITY- INFERIOR LEADS BASELINE ARTIFACT- I, II, III, AVR, AVL, AVF, V1 ABNORMAL ECG COMPARED TO ECG 12/26/2021 15:13:58 SINUS TACHYCARDIA NOW PRESENT Electronically Signed On 05-15-2022 13:29:10 BROADCAST METEOROLOGIST by Thuan Arceo D.O.
[2022-05-15 12:18] LABS: Basophils Absolute Auto 0.1 K/mm3 (0.0-0.1); Basophils Percent Auto 0.3 % (0.2-1.2); Eosinophils Absolute Auto 0.1 K/mm3 (0-0.3); Eosinophils Percent Auto 0.3 % (0-4.4); Hematocrit 46.6 % (42.0-52.0); Hemoglobin 15.6 g/dL (14.0-18.0); Immature Granulocyte Absolute 0.14 K/mm3 (0.00-0.031); Immature Granulocyte Percent A 0.7 % (0-0.5); Lymphocytes Absolute Auto 1.02 K/mm3 (0.9-3.2); Lymphocytes Percent Auto 4.9 % (18.3-44.2); Mean Corpuscular HGB Conc 33.5 g/dl (32-36); Mean Corpuscular Hemoglobin 31.6 pg (26-34); Mean Corpuscular Volume 94.3 fl (80-100); Mean Platelet Volume 9.6 fl (7.4-10.4); Monocytes Absolute Auto 1.2 K/mm3 (0.1-0.6); Monocytes Percent Auto 5.8 % (2.6-8.5); Neutrophils Absolute Auto 18.3 K/mm3 (1.3-6.7); Platelet Count Result 232 k/mm3 (150-375); Red Blood Count 4.94 M/mm3 (4.6-6.20); Red Cell Distribution Width 13.8 % (11.5-14.5); White Blood Count 20.8 K/mm3 (4.5-10.0)
[2022-05-15 12:31] LABS: Alanine Aminotransferase 28 U/L (6-50); Alkaline Phosphatase 130 U/L (38-126); Anion Gap 13 mmol/L (8-16); Aspartate Amino Transferase 30 U/L (17-59); Bilirubin,Total 1.9 mg/dL (0.2-1.3); Blood Urea Nitrogen 20 mg/dL (9-20); Calcium 8.7 mg/dL (8.4-10.2); Carbon Dioxide 26 mmol/L (22-30); Chloride 101 mmol/L (98-107); Estimated CRCL calculation 35 ml/min; Estimated Glomerular Filt Rate 43; Glucose 123 mg/dL (65-110); Sodium 140 mmol/L (137-145)
[2022-05-15 12:35] LABS: Atypical Lymphocytes Present; Platelet Estimate Adequate (Adequate); Schistocytes None Seen (NORMAL)
--- NOTE | 2022-05-15 12:42 | ED.WEAKNESS ---
HPI - Weakness General Chief complaint: Weakness Stated complaint: weakness/tachycardic Time Seen by Provider: 05/15/22 12:02 History of Present Illness HPI Narrative: Patient is a 71-year-old male with a history of hyperlipidemia, COPD, hypothyroidism, hypertension, diabetes presenting with generalized weakness. Patient states that he was feeling well until he woke up this morning. States that he felt generally weak with generalized body aches. States that he just feels lousy . Patient's states that he often has bronchitis and pneumonia and this is similar to prior episodes. Patient denies headache, chest pain, shortness of breath, abdominal pain, nausea or vomiting, diarrhea, dysuria, leg swelling. States that he does have a cough. Related Data Home Medications Medication Instructions Recorded Confirmed levothyroxine 75 mcg tablet 75 mcg PO DAILY 05/07/19 05/16/22 (Synthroid) pantoprazole 20 mg tablet,delayed 20 mg PO BID 05/07/19 05/15/22 release (Protonix) ascorbic acid (vitamin C) 500 mg 500 mg PO DAILY 10/20/20 05/15/22 capsule ferrous sulfate 325 mg (65 mg 325 mg PO DAILY 10/20/20 05/15/22 iron) tablet (iron) cyanocobalamin (vitamin B-12) 1,000 mcg PO DAILY 12/27/20 05/15/22 1,000 mcg tablet cholecalciferol (vitamin D3) 25 25 mcg PO DAILY 04/27/21 05/15/22 mcg (1,000 unit) capsule pregabalin 75 mg capsule (Lyrica) 75 mg PO BID 11/03/21 05/15/22 atorvastatin 40 mg tablet 40 mg PO DAILY 02/23/22 05/15/22 omega-3 fatty acids 1,000 mg 1,000 mg PO BID 02/23/22 05/16/22 capsule (Fish Oil Concentrate) aspirin 81 mg tablet 81 mg PO DAILY 05/15/22 05/15/22 Allergies Allergy/AdvReac Type Severity Reaction Status Date / Time tamsulosin [From Flomax] Allergy Unknown Dizziness Verified 05/04/22 09:28 cetirizine [From Zyrtec-D] AdvReac Intermediate increased Verified 05/04/22 09:28 stomach acid pseudoephedrine AdvReac Intermediate increased Verified 05/04/22 09:28 [From Zyrtec-D] stomach acid venlafaxine [From Effexor] AdvReac Intermediate Diarrhea Verified 05/04/22 09:28 Review of Systems Review of Systems: All systems reviewed & are unremarkable except as noted in HPI and below [facility] Past Medical History Medical History (Updated 05/23/22 @ 13:56 by Ignacia Hernandez MD) CAD (coronary artery disease) COPD (chronic obstructive pulmonary disease) Degenerative joint disease of knee Diabetes mellitus Diet-controlled diabetes mellitus End stage renal disease In on dialysis for 3 weeks. No problems since then. Esophageal cancer GERD (gastroesophageal reflux disease) High cholesterol Hyperlipidemia Hypertension Hypothyroidism ERMELINDA (iron deficiency anemia) Pneumonia Stomach ulcer TIA (transient ischemic attack) Surgical History Surgical History H/O esophagogastroduodenoscopy H/O foot surgery H/O hernia repair H/O repair of rotator cuff History of colonoscopy History of esophagectomy 1999; had 14 years of follow up, no recurrence History of reverse total replacement of shoulder joint Status post left partial knee replacement 2012 Status post right partial knee replacement 11/09/2020 Family History Family History Mother Family history of cardiovascular disease Father Family history of cardiovascular disease Sibling Family history of cardiovascular disease Sibling Lung cancer Other Family history of malignant neoplasm Hypertension Social History Social History (Updated 05/15/22 @ 23:19 by Domenica Hyde PA-C) Social History: Code status: Full code. Smoking packs per day: 4 Smoking cigarettes per day: 80.0 Years smoked: 6 Smoking pack-years: 24.00 Smoking status: Former smoker Additional smoking assessment comments: STATES HX OF 4PK/DAY - QUIT 07/11/1990 Alcohol intake: never Alcohol use details: QUIT
[2022-05-15] MEDS: SODIUM CHLORIDE 0.9% IV 1,000 ML 999 ML IV CONT ×2 (13:05→16:42)
[2022-05-15 13:24] LABS: Influenza A QL RT-PCR Negative (Negative); Influenza B QL RT-PCR Negative (Negative); RSV RNA, RT-PCR Negative (Negative); SARS-CoV-2 RNA PCR Negative
[2022-05-15 13:30] LABS: Lactic Acid Reflex 1.7 mmol/L (0.7-2.0)
[2022-05-15 13:31] LABS: Appearance Urine Clear (Clear); Bilirubin Urine Negative (Negative); Blood Urine Negative (Negative); Color Urine Yellow (Yellow); Glucose Urine UA Negative (Negative); Ketones Urine Negative (Negative); Leukocyte Esterase Ur Negative LEU/UL (Negative); Nitrate Urine Negative (Negative); Protein Urine Negative (Negative); Urobilinogen Urine 0.2 mg/dL (<2.0); pH Urine 6.5 (5.0-9.0)
[2022-05-15 13:41] LABS: Add Urine Microscopic? NO
--- NOTE | 2022-05-15 15:45 | PM.IMHP ---
H&P: HPI History of Present Illness Date/Time: 05/15/22 15:45 Chief Complaint: Generalized weakness. Narrative: This is a pleasant 71-year-old gentleman with COPD, hypertension, hyperlipidemia, hypothyroidism, diet-controlled diabetes, and other comorbidities who presented to the emergency department from home for evaluation of generalized weakness. He has a bit of a chronic cough however it has been much worse over the last 7 days. He feels as though he has something to cough up however it has not been productive and Tessalon Perles have helped somewhat with the cough. In addition to the cough he reports having body aches and temperatures up to 101? Fahrenheit. He was negative for RSV, influenza, and COVID in the ER. Chest x-ray showed airspace and interstitial opacities in the mid lower lung zones with slight interval worsening and he is being admitted for IV antibiotics for acute on chronic infection. reports that is not unusual for him to have bronchitis and he has had pneumonia in the past. He has no known sick contacts. His smell and taste have not been good today and his appetite has been poor. He denies nausea, vomiting, and diarrhea. Review of Systems Review of Systems: Twelve systems were reviewed and are negative except for as per HPI. [facility] Past Medical History Medical History (Updated 05/15/22 @ 23:21 by Domenica Hyde PA-C) CAD (coronary artery disease) COPD (chronic obstructive pulmonary disease) Degenerative joint disease of knee Diabetes mellitus Diet-controlled diabetes mellitus End stage renal disease In on dialysis for 3 weeks. No problems since then. Esophageal cancer GERD (gastroesophageal reflux disease) High cholesterol Hyperlipidemia Hypertension Hypothyroidism ERMELINDA (iron deficiency anemia) Pneumonia Stomach ulcer TIA (transient ischemic attack) Surgical History Surgical History H/O esophagogastroduodenoscopy H/O foot surgery H/O hernia repair H/O repair of rotator cuff History of colonoscopy History of esophagectomy 1999; had 14 years of follow up, no recurrence History of reverse total replacement of shoulder joint Status post left partial knee replacement 2012 Status post right partial knee replacement 11/09/2020 Family History Family History Mother Family history of cardiovascular disease Father Family history of cardiovascular disease Sibling Family history of cardiovascular disease Sibling Lung cancer Other Family history of malignant neoplasm Hypertension Social History Social History (Updated 05/15/22 @ 23:19 by Domenica Hyde PA-C) Social History: Code status: Full code. Smoking packs per day: 4 Smoking cigarettes per day: 80.0 Years smoked: 6 Smoking pack-years: 24.00 Smoking status: Former smoker Additional smoking assessment comments: STATES HX OF 4PK/DAY - QUIT 07/11/1990 Alcohol intake: never Alcohol use details: QUIT ETOH IN 1999 Substance use: never Substance use type: does not use Lack of Transportation: No Lack of Food: Never True Current Housing: I Have Housing Concerned About Future Housing: No Difficulty Paying Gas/Electric Bills: No Difficulty Paying for Meds: No Currently Unemployed: No Education: High School Diploma/GED Difficulty w/ Childcare or Family Care: No Additional living arrangements comments: LIVES W/ , RAMSES 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 Spiritual care concerns: No Meds Home Medications and Allergies Home Medications Medication Instructions Recorded Confirmed Type levothyroxine 75 mcg tablet 75 mcg PO DAILY 05/07/19 03/07/22 History (Synthroid) pantoprazole 20 mg tablet,delayed 20 mg PO BID 05/07/19 05/15/22 History release (Protonix) ascorbic acid (vitamin C) 500 mg 500 mg PO DAILY 10/20/20
--- NOTE | 2022-05-15 16:49 | PC.NURSE ---
ordered pt dinner tray.
--- NOTE | 2022-05-15 20:46 | ADMGEN ---
This patient, Александр Villanueva, was admitted to Virtual Bed 3rd Floor-1. Patient/family oriented to hospital policies and general routines including ID bracelet, bed and alarms, visiting hours, pain management, procedures, bathroom and other care routines, personal items, smoking policy, room service/diet, and visiting hours. Information on how to activate the Rapid Response Team has been discussed. Patient/Family are encouraged to report perceived risks to care and to ask questions if they do not understand what they are told or what they should do.
[2022-05-16] VITALS (11 sets, daily range): BP systolic 109–118; BP diastolic 56–66; PULSE 79–100; RESP 14–22; TEMP 36.6–37.3; O2SAT 93–97
--- NOTE | 2022-05-16 02:41 | PCRCNOTE ---
RT woke pt for 0200 UPD treatment. PT stated why would you wake me up for this. When stated that his next UPD was not until 0800, pt stated 0800 was fine. RN notified.
[2022-05-16 05:11] LABS: Hematocrit 34.8 % (42.0-52.0); Hemoglobin 11.4 g/dL (14.0-18.0); Mean Corpuscular HGB Conc 32.8 g/dl (32-36); Mean Corpuscular Hemoglobin 30.7 pg (26-34); Mean Corpuscular Volume 93.8 fl (80-100); Mean Platelet Volume 9.6 fl (7.4-10.4); Platelet Count Result 190 k/mm3 (150-375); Red Blood Count 3.71 M/mm3 (4.6-6.20); Red Cell Distribution Width 13.9 % (11.5-14.5); White Blood Count 12.9 K/mm3 (4.5-10.0)
[2022-05-16 05:27] LABS: Anion Gap 6 mmol/L (8-16); Blood Urea Nitrogen 21 mg/dL (9-20); Calcium 7.5 mg/dL (8.4-10.2); Carbon Dioxide 25 mmol/L (22-30); Chloride 105 mmol/L (98-107); Estimated CRCL calculation 44 ml/min; Estimated Glomerular Filt Rate 59; Glucose 92 mg/dL (65-110); Magnesium 1.9 mg/dL (1.6-2.3); Potassium 3.7 mmol/L (3.4-5.0); Sodium 136 mmol/L (137-145)
[2022-05-16] MEDS: LEVOTHYROXINE SODIUM 75 MCG TABLET PO (06:13)
[2022-05-16] MEDS: FLUTICASONE/UMECLIDIN/VILANTER 100-62.5-25 MCG ELLIPTA 1 PUFF INHALATION (09:36)
[2022-05-16] MEDS: CYANOCOBALAMIN 1,000 MCG TABLET 1000 MCG PO (09:55)
[2022-05-16] MEDS: ASCORBIC ACID 500 MG TABLET PO (09:55)
[2022-05-16] MEDS: PANTOPRAZOLE SOD SESQUIHYDRATE 20 MG TAB PO ×2 (09:55→17:10)
[2022-05-16] MEDS: PREGABALIN (*CRX) 75 MG CAPSULE PO ×2 (09:55→20:46)
[2022-05-16] MEDS: ASPIRIN 81 MG CHEWABLE TABLET PO (09:56)
[2022-05-16] MEDS: guaiFENesin 12 HR 600 MG TABCR PO ×2 (09:56→20:46)
[2022-05-16] MEDS: CHOLECALCIFEROL 1,000 UNITS TABLET 1000 UNITS PO (09:56)
[2022-05-16] MEDS: FERROUS SULFATE 324 MG TABLET PO (09:56)
[2022-05-16] MEDS: OMEGA 3 POLYUNSAT FATTY ACIDS 1 GM CAP PO ×2 (09:56→17:09)
[2022-05-16] MEDS: ATORVASTATIN 40 MG TABLET PO (09:56)
[2022-05-16] MEDS: ENOXAPARIN 40 MG/0.4 ML SYRINGE SUB-Q (09:57)
[2022-05-16] MEDS: BENZONATATE 100 MG CAPSULE PO (09:59)
--- NOTE | 2022-05-16 15:00 | PC.NURSE ---
Patient called me to room stating he felt more short of breath than normal. Patient appears to be dyspneic - lying in bed. VSS. O2 sat 94% on 1 liter per nasal cannula. Increased O2 to 2 liters per nasal cannula. Called Kay JEFFREY and left voice mail reporting same. Patient denies chest pain or other issues.
--- NOTE | 2022-05-16 15:24 | PC.NURSE ---
On 05/16/22, the student, [Jyothi Garcia], provided care and completed [facility] documentation on this patient. I have reviewed the student's documentation and agree with the findings.
--- NOTE | 2022-05-16 15:51 | PC.NURSE ---
Patient states his shortness of breath has improved since O2 increased. Appears to be resting more comfortably and shortness of breath does appear to be less. Will continue to monitor.
--- NOTE | 2022-05-16 15:51 | PM.IMPN ---
Progress Note: A&P Assessment and Plan (1) Pneumonia: Code(s): J18.9 - Pneumonia, unspecified organism Status: Acute Assessment and Plan: The patient presented to the emergency department from home for evaluation of generalized weakness, cough, body aches, and fever for 1 week. chest x-ray shows findings of probable acute on chronic infection continue ceftriaxone and azithromycin supportive care. Bronchodilators, expectorants, incentive spirometry, Cornet valve COVID and influenza negative urinary Legionella, pneumococcal, and mycoplasma antigens pending sputum culture pending patient is currently requiring 2 L supplemental O2. Continue supplemental oxygen as needed with goal saturations 92% or above. Wean to goal. marked improvement in leukocytosis (2) Dysphagia: Code(s): R13.10 - Dysphagia, unspecified Status: Acute Assessment and Plan: Patient with history of dysphagia secondary to esophageal cancer. Previously completed outpatient speech therapy. MBS completed today with recommendations for soft and bite size diet with mildly thickened liquids. Appreciate ST evaluation. implement aspiration precautions (3) Dehydration: Code(s): E86.0 - Dehydration Status: Resolved Assessment and Plan: Secondary to acute illness. Patient has been adequately rehydrated with IV fluids and is tolerating p.o. intake (4) COPD (chronic obstructive pulmonary disease): Code(s): J44.9 - Chronic obstructive pulmonary disease, unspecified Status: Chronic Assessment and Plan: not in acute exacerbation. He is not on any home maintenance inhalers. Continue albuterol inhaler as needed (5) Hypothyroidism: Code(s): E03.9 - Hypothyroidism, unspecified Status: Chronic Assessment and Plan: TSH is pending. Continue home levothyroxine (6) Diet-controlled diabetes mellitus: Code(s): E11.9 - Type 2 diabetes mellitus without complications Status: Acute Assessment and Plan: A1c in September 2021 was 5.6. Blood sugars have been well controlled this admission and patient is diet controlled. Check updated A1c. (7) Normocytic anemia: Code(s): D64.9 - Anemia, unspecified Status: Acute Assessment and Plan: H&H has declined from admission to 11.4. Suspect this is dilutional from IV fluids and initial results were hemoconcentrated. No signs of bleeding. Continue to monitor H&H. Subjective Date/time seen: 05/16/22 15:51 Interval history: Date of service: 05/16/2022 Александр Villanueva is a 71-year-old male with a history of CAD, COPD, diabetes mellitus, ESRD, esophageal cancer s/p esophagectomy, TIA, iron deficiency anemia, hypertension, hypothyroidism who is seen in follow-up for community-acquired pneumonia. He is feeling slightly improved today. States his shortness of breath is little bit better. He does complain of generalized weakness but states this has also improved and he is able to ambulate with assistance today. He complains of cough productive of yellowish sputum. He denies abdominal pain, nausea, vomiting, fever, or chills. He passed a hard stool yesterday and states that he is frequently constipated. Denies any blood in his stool. He denies dysuria or hematuria. No flank pain or back pain. He had a modified barium swallow today and reports that he had some issues with this. He states I flunked it. He is not very happy about dietary modifications but is agreeable to this. he does not feel that he has had any episodes of aspiration. Review of Systems Review of Systems: All systems reviewed & are unremarkable except as noted in HPI and below Exam Narrative: General: Well-nourished, well-appearing 71-year-old male, sitting up in bed, comfortable, NARD Neuro: awake, alert and oriented x4, speech clear, no focal neuro deficits noted HEENMT: normocephalic,
[2022-05-16] MEDS: ALBUTEROL SULFATE NEB 2.5 MG/3 ML INH INHALATION (17:00)
[2022-05-16] MEDS: LORATADINE 5 MG TABLET PO (17:10)
[2022-05-16] MEDS: FLUTICASONE PROPIONATE 0.05% NA SPR 16 GM BTL (*BKC) 1 SPRAY NASAL (17:11)
[2022-05-16] MEDS: SALINE 0.65% NAS SOLN 44 ML BTL 1 SPRAY NASAL (17:11)
[2022-05-16] MEDS: FAMOTIDINE 20 MG TABLET PO (20:46)
[2022-05-17 05:15] VITALS: BP 136/76; PULSE 83; RESP 20; TEMP 36.6; O2SAT 97
[2022-05-17 06:39] LABS: Hematocrit 35.9 % (42.0-52.0); Hemoglobin 11.8 g/dL (14.0-18.0); Mean Corpuscular HGB Conc 32.9 g/dl (32-36); Mean Corpuscular Hemoglobin 31.6 pg (26-34); Platelet Count Result 210 k/mm3 (150-375); Red Blood Count 3.74 M/mm3 (4.6-6.20); Red Cell Distribution Width 13.6 % (11.5-14.5); White Blood Count 9.5 K/mm3 (4.5-10.0)
[2022-05-17] MEDS: LEVOTHYROXINE SODIUM 75 MCG TABLET PO (06:42)
[2022-05-17 07:02] LABS: Anion Gap 12 mmol/L (8-16); Blood Urea Nitrogen 14 mg/dL (9-20); Calcium 8.2 mg/dL (8.4-10.2); Carbon Dioxide 24 mmol/L (22-30); Chloride 102 mmol/L (98-107); Estimated CRCL calculation 48 ml/min; Estimated Glomerular Filt Rate > 60; Glucose 91 mg/dL (65-110); Potassium 3.8 mmol/L (3.4-5.0); Sodium 138 mmol/L (137-145)
[2022-05-17] MEDS: FLUTICASONE/UMECLIDIN/VILANTER 100-62.5-25 MCG ELLIPTA 1 PUFF INHALATION (07:30)
[2022-05-17 07:36] VITALS: O2SAT 93
[2022-05-17] MEDS: ASPIRIN 81 MG CHEWABLE TABLET PO (08:03)
[2022-05-17] MEDS: FERROUS SULFATE 324 MG TABLET PO (08:03)
[2022-05-17] MEDS: ATORVASTATIN 40 MG TABLET PO (08:04)
[2022-05-17] MEDS: ASCORBIC ACID 500 MG TABLET PO (08:04)
[2022-05-17] MEDS: CYANOCOBALAMIN 1,000 MCG TABLET 1000 MCG PO (08:04)
[2022-05-17] MEDS: CHOLECALCIFEROL 1,000 UNITS TABLET 1000 UNITS PO (08:04)
[2022-05-17] MEDS: FAMOTIDINE 20 MG TABLET PO ×2 (08:05→21:03)
[2022-05-17] MEDS: ENOXAPARIN 40 MG/0.4 ML SYRINGE SUB-Q (08:05)
[2022-05-17] MEDS: LORATADINE 5 MG TABLET PO (08:06)
[2022-05-17] MEDS: guaiFENesin 12 HR 600 MG TABCR PO ×2 (08:06→21:02)
[2022-05-17] MEDS: OMEGA 3 POLYUNSAT FATTY ACIDS 1 GM CAP PO ×2 (08:06→18:11)
[2022-05-17] MEDS: PANTOPRAZOLE SOD SESQUIHYDRATE 20 MG TAB PO ×2 (08:07→18:11)
[2022-05-17] MEDS: PREGABALIN (*CRX) 75 MG CAPSULE PO ×2 (08:07→21:05)
[2022-05-17 13:27] VITALS: BP 126/41; PULSE 98; RESP 16; TEMP 36.3; O2SAT 90
--- NOTE | 2022-05-17 13:37 | PC.NURSE ---
On 05/17/22, the student, [Ly Mercer], provided care and completed [facility] documentation on this patient. I have reviewed the student's documentation and agree with the findings.
--- NOTE | 2022-05-17 16:33 | PM.IMPN ---
Progress Note: A&P Assessment and Plan (1) Pneumonia: Code(s): J18.9 - Pneumonia, unspecified organism Status: Acute Assessment and Plan: The patient presented to the emergency department from home for evaluation of generalized weakness, cough, body aches, and fever for 1 week. chest x-ray shows findings of probable acute on chronic infection continue ceftriaxone and azithromycin supportive care. Bronchodilators, expectorants, incentive spirometry, Cornet valve COVID and influenza negative urinary Legionella, pneumococcal, and mycoplasma antigens pending sputum culture pending, preliminary results with mixed bacterial jackson Required up to 2 L supplemental O2, has been weaned to room air today. Monitor O2 sats with goal 92% or above patient is currently requiring 2 L supplemental O2. Continue supplemental oxygen as needed with goal saturations 92% or above. Wean to goal. marked improvement in leukocytosis, white blood cell count normalized today. Patient remains afebrile (2) Dysphagia: Code(s): R13.10 - Dysphagia, unspecified Status: Acute Assessment and Plan: Patient with history of dysphagia secondary to esophageal cancer. Previously completed outpatient speech therapy. MBS completed 05/16 with recommendations for soft and bite size diet with mildly thickened liquids. Appreciate ST evaluation. Aspiration precautions implemented. Patient will be referred for outpatient speech therapy (3) Dehydration: Code(s): E86.0 - Dehydration Status: Resolved Assessment and Plan: Secondary to acute illness. Patient has been adequately rehydrated with IV fluids and is tolerating p.o. intake (4) COPD (chronic obstructive pulmonary disease): Code(s): J44.9 - Chronic obstructive pulmonary disease, unspecified Status: Chronic Assessment and Plan: not in acute exacerbation. He is not on any home maintenance inhalers. Continue albuterol inhaler as needed (5) Hypothyroidism: Code(s): E03.9 - Hypothyroidism, unspecified Status: Chronic Assessment and Plan: TSH is within normal limits. Continue home levothyroxine (6) Diet-controlled diabetes mellitus: Code(s): E11.9 - Type 2 diabetes mellitus without complications Status: Acute Assessment and Plan: A1c in September 2021 was 5.6. Blood sugars have been well controlled this admission and patient is diet controlled. Check updated A1c. (7) Normocytic anemia: Code(s): D64.9 - Anemia, unspecified Status: Acute Assessment and Plan: H&H declined from admission, however suspect this is dilutional from IV fluids and initial results were hemoconcentrated. No signs of bleeding. H&H remaining stable following rehydration. Plan Hopeful discharge tomorrow if continued improvement Subjective Date/time seen: 05/17/22 16:33 Interval history: Date of service: 05/17/2022 Александр Villanueva is a 71-year-old male with a history of CAD, COPD, diabetes mellitus, ESRD, esophageal cancer s/p esophagectomy, TIA, iron deficiency anemia, hypertension, hypothyroidism who is seen in follow-up for community-acquired pneumonia. He is feeling well today. His shortness of breath has improved. He has occasional cough productive of whitish/yellow phlegm. He denies wheezing. He is able to ambulate with assistance and denies dyspnea on exertion. He denies abdominal pain, nausea, vomiting, fever, chills, dizziness, lightheadedness. He is tolerating his diet. He is not satisfied with thickened liquids diet. He was saddened that his coffee had to be thickened. Review of Systems Review of Systems: All systems reviewed & are unremarkable except as noted in HPI and below Exam Narrative: General: well-nourished, well-appearing 71-year-old male, sitting up in bed, comfortable, NARD Neuro: awake, alert and oriented x4, speech clear, no focal neur
[2022-05-17] MEDS: FLUTICASONE PROPIONATE 0.05% NA SPR 16 GM BTL (*BKC) 1 SPRAY NASAL (21:02)
[2022-05-17 21:52] VITALS: BP 132/75; PULSE 79; RESP 18; TEMP 36.6; O2SAT 91
[2022-05-18 05:20] VITALS: BP 126/72; PULSE 85; RESP 17; TEMP 36.5; O2SAT 91
[2022-05-18 06:33] LABS: Hemoglobin 12.3 g/dL (14.0-18.0); Mean Corpuscular HGB Conc 34.2 g/dl (32-36); Mean Corpuscular Hemoglobin 31.3 pg (26-34); Mean Corpuscular Volume 91.6 fl (80-100); Mean Platelet Volume 9.8 fl (7.4-10.4); Platelet Count Result 242 k/mm3 (150-375); Red Blood Count 3.93 M/mm3 (4.6-6.20); Red Cell Distribution Width 13.3 % (11.5-14.5); White Blood Count 8.1 K/mm3 (4.5-10.0)
[2022-05-18] MEDS: FERROUS SULFATE 324 MG TABLET PO (09:23)
[2022-05-18] MEDS: LEVOTHYROXINE SODIUM 75 MCG TABLET PO (09:23)
[2022-05-18] MEDS: ASPIRIN 81 MG CHEWABLE TABLET PO (09:23)
[2022-05-18] MEDS: CYANOCOBALAMIN 1,000 MCG TABLET 1000 MCG PO (09:24)
[2022-05-18] MEDS: ASCORBIC ACID 500 MG TABLET PO (09:24)
[2022-05-18] MEDS: CHOLECALCIFEROL 1,000 UNITS TABLET 1000 UNITS PO (09:24)
[2022-05-18] MEDS: ATORVASTATIN 40 MG TABLET PO (09:24)
[2022-05-18] MEDS: FAMOTIDINE 20 MG TABLET PO (09:25)
[2022-05-18] MEDS: LORATADINE 5 MG TABLET PO (09:25)
[2022-05-18] MEDS: PANTOPRAZOLE SOD SESQUIHYDRATE 20 MG TAB PO (09:25)
[2022-05-18] MEDS: FLUTICASONE PROPIONATE 0.05% NA SPR 16 GM BTL (*BKC) 1 SPRAY NASAL (09:25)
[2022-05-18] MEDS: guaiFENesin 12 HR 600 MG TABCR PO (09:25)
[2022-05-18] MEDS: OMEGA 3 POLYUNSAT FATTY ACIDS 1 GM CAP PO (09:26)
[2022-05-18] MEDS: FLUTICASONE/UMECLIDIN/VILANTER 100-62.5-25 MCG ELLIPTA 1 PUFF INHALATION (09:40)
[2022-05-18 09:42] VITALS: O2SAT 94
[2022-05-18 09:44] LABS: Hemoglobin A1C 6.1 % (<5.7)
[2022-05-18] MEDS: PREGABALIN (*CRX) 75 MG CAPSULE PO (10:34)
[2022-05-18 12:46] LABS: Anion Gap 8 mmol/L (8-16); Blood Urea Nitrogen 14 mg/dL (9-20); Calcium 8.3 mg/dL (8.4-10.2); Carbon Dioxide 21 mmol/L (22-30); Chloride 107 mmol/L (98-107); Estimated CRCL calculation 48 ml/min; Estimated Glomerular Filt Rate > 60; Glucose 94 mg/dL (65-110); Sodium 136 mmol/L (137-145)
--- NOTE | 2022-05-18 13:32 | PM.DS ---
DS: Admitting Diagnosis Discharge Date 05/18/2022 Admitting Diagnosis Pneumonia DS: Discharge Diagnosis Discharge Diagnosis (1) Pneumonia: Code(s): J18.9 - Pneumonia, unspecified organism Status: Acute Assessment and Plan: The patient presented to the emergency department from home for evaluation of generalized weakness, cough, body aches, and fever for 1 week. chest x-ray showed findings of probable acute on chronic infection received IV ceftriaxone and azithromycin during admission will continue p.o. cefdinir to complete 7 days of treatment and p.o. azithromycin to complete 5 days supportive care provided including bronchodilators, expectorants, incentive spirometry, Cornet valve COVID and influenza negative urinary Legionella, pneumococcal, and mycoplasma antigens pending at time of discharge and will be monitored sputum culture pending, preliminary results with mixed bacterial jackson. Final results will be monitored required up to 2 L supplemental O2 during admission but was able to be promptly weaned to room air and maintained adequate O2 sats leukocytosis resolved inpatient remained afebrile (2) Dysphagia: Code(s): R13.10 - Dysphagia, unspecified Status: Acute Assessment and Plan: Patient with history of dysphagia secondary to esophageal cancer. Previously completed outpatient speech therapy. MBS completed 05/16 with recommendations for soft and bite size diet with mildly thickened liquids which patient will continue on discharge. Aspiration precautions implemented during admission and patient received educated. He has been referred to outpatient speech therapy (3) Dehydration: Code(s): E86.0 - Dehydration Status: Resolved Assessment and Plan: Secondary to acute illness. Patient was adequately rehydrated with IV fluids and able to tolerate appropriate p.o. intake (4) COPD (chronic obstructive pulmonary disease): Code(s): J44.9 - Chronic obstructive pulmonary disease, unspecified Status: Chronic Assessment and Plan: Not in acute exacerbation. Continue home trelegy and rescue albuterol inhaler. Continue with outpatient pulmonology follow-up (5) Hypothyroidism: Code(s): E03.9 - Hypothyroidism, unspecified Status: Chronic Assessment and Plan: TSH is within normal limits. Continue home levothyroxine (6) Diet-controlled diabetes mellitus: Code(s): E11.9 - Type 2 diabetes mellitus without complications Status: Acute Assessment and Plan: A1c is 6.1. Blood sugars have well controlled during admission and patient is diet controlled. (7) Normocytic anemia: Code(s): D64.9 - Anemia, unspecified Status: Acute Assessment and Plan: H&H with 4 point decline from admission, however suspect this is dilutional from IV fluids and initial results were hemoconcentrated. No signs of bleeding. H&H remained stable following rehydration and subsequent labs appear to be consistent with baseline DS: Summary Hospital Course Hospital Course: Date of admission: 05/15/2022 Date of discharge: 05/18/2022 Александр Villanueva is a 71-year-old male with a history of CAD, COPD, diabetes mellitus, ESRD, esophageal cancer s/p esophagectomy, TIA, iron deficiency anemia, hypertension, hypothyroidism?who presented to the emergency department on 05/15/2022 with complaints of general weakness and overall feeling unwell. On presentation to the ED, he was afebrile, tachycardic, he was placed on 2 L supplemental O2, WBC 20.8, additional laboratory workup unremarkable, and CXR showed airspace and interstitial opacities in the mid and lower lung zones with slight interval worsening. He was admitted to the hospitalist service for further evaluation and management. Please see above for further details. He was treated with IV antibiotics for pneumonia and had symptomatic improvement. He will contin
[2022-05-19 00:24] LABS: Pneumococcal Antigen Urine Not Detected (Not Detected)
[2022-05-20 16:15] LABS: Legionella pneumophila Ag Ur Not Detected (Not Detected)
[2022-05-20 21:39] LABS: Mycoplasma IgM Antibody Titer 53 U/mL (<770)
--- NOTE | 2022-05-22 10:05 | PC.NURSE ---
Sputum and Blood cx are negative. Urine legionella and pneumococcal are both negative. Urine Mycoplasm is WNL at 53. M. Stimac aware.
== END 2022-05-18 14:24 | disposition home or self-care (01) | DRG 194 ==
LOC: ANHED 12:13 → ANH3MEDSUR 18:06 → ANH2MED 20:50
PROVIDERS: Emergency Medicine; Physician Assistant; Admitting Provider Student in an Organized Health Care Education/Training Program; Emergency Provider Emergency Medicine; PCP Family Medicine; Visit Provider Internal Medicine
DX: J18.9 Pneumonia, unspecified organism (principal); J44.0 Chronic obstructive pulmonary disease with (acute) lower respiratory infection; E86.0 Dehydration; K21.9 Gastro-esophageal reflux disease without esophagitis; E11.9 Type 2 diabetes mellitus without complications; I25.10 Atherosclerotic heart disease of native coronary artery without angina pectoris; E87.5 Hyperkalemia; D50.9 Iron deficiency anemia, unspecified; R13.10 Dysphagia, unspecified; Z86.73 Personal history of transient ischemic attack (TIA), and cerebral infarction without residual deficits; Z20.822 Contact with and (suspected) exposure to COVID-19; Z82.49 Family history of ischemic heart disease and other diseases of the circulatory system; Z87.891 Personal history of nicotine dependence; Z79.82 Long term (current) use of aspirin; Z79.899 Other long term (current) drug therapy; Z88.8 Allergy status to other drugs, medicaments and biological substances; Z85.01 Personal history of malignant neoplasm of esophagus
CPT/HCPCS: 36415; 51701; 71045; 80048; 80053; 81003; 83036; 83605; 83735; 84443; 85025; 85027; 86738; 87040; 87070; 87205; 87449; 87637; 87899; 92611; 93005; 94640; 94667; 96361; 96365; 96367; 96372; 99285; A9270; G0378; J0456; J0696; J1650; J3370; J7030

== ENCOUNTER 2022-06-18 14:33 | Outpatient (CLI) | payer MEDICARE, SELFPAY ==
--- NOTE | ~2022-06-18 | XR_ITS ---
Clinical Indication: Cough PA and lateral views of the chest: Comparison: 05/15/2022 Findings: Probable hazy retrocardiac airspace opacity. Right lung clear. Cardiomediastinal silhouett e is within normal limits. Right shoulder arthroplasty is unchanged. Impression: Probable left lower lobe atelectasis versus pneumonia. Correlate clinically. Reviewed, dictated and finalized at [facility]. CIATE DIRECTOR QA Impression: Probable left lower lobe atelectasis versus pneumonia. Correlate clinically.
== END 2022-06-18 14:34 | disposition home or self-care (01) ==
PROVIDERS: PCP Nurse Practitioner Family; Visit Provider Nurse Practitioner Family
DX: R05.9 Cough, unspecified (principal)
CPT/HCPCS: 71046

== ENCOUNTER 2022-09-28 09:10 | Outpatient (CLI) | payer MEDICARE, SELFPAY ==
[2022-09-28 09:30] VITALS: PULSE 60; O2SAT 95
[2022-09-28 09:35] VITALS: PULSE 80; O2SAT 90
[2022-09-28 09:45] VITALS: PULSE 64; O2SAT 95
--- NOTE | 2022-09-28 11:20 | HOMEO2EVAL ---
Evaluation was performed at [facility] Home Oxygen Evaluation RC: Home Oxygen (O2) Evaluation Start: 09/28/22 10:18 Freq: Status: Active Protocol: RPE Activity Type Activity Date Activity User E-sign Co-sign Detail Recorded Client Recorded Date Recorded By Document 09/28/22 09:30 DJO [id number] 09/28/22 11:17 DJO Document 09/28/22 09:35 [email or web address] [id number] 09/28/22 11:17 DJO Document 09/28/22 09:45 [email or web address] [id number] 09/28/22 11:17 DJO 09/28/22 09/28/22 09/28/22 09:30 09:35 09:45 Home O2 Evaluation [Oxygen] -Test Phase Resting Exercise Resting -Oxygen Delivery Room Air Room Air Room Air [Pulse Oximetry] -Pulse Oximetry (90-100 %) 95 90 95 [Pulse Rate] -Pulse Rate (60-100 beats/min) 60 80 64 [Evaluation] -Activity Tolerance Fair [Exercise] -Ambulation Distance (feet) 250 -Ambulation Distance (meters) 76.19 [Comments] -Home Oxygen Evaluation Comments PT ORDER FOR 6 6 MINUTE WALK MINUTE WALK, ORDERED, HOME HOME O2 EVAL O2 EVAL DONE DONE DUE TO PT DUE TO PT'S ONLY BEING ABLE TO WALK 200 FEET DUE TO SEVERE LEG PAIN [Charges] -Treatment Charges O2 Evaluation - Outpatient
--- NOTE | 2022-09-28 11:31 | PCRCNOTE ---
PT ORDERED FOR A 6 MINUTE WALK, HOME O2 EVAL WAS DONE DUE TO PT'S SEVERE LEG PAIN AND PT ONLY ABLE TO WALK 250 FEET
--- NOTE | 2022-09-28 16:34 | WPDPFTINT ---
PFT Procedure Performed PFT Procedure Performed Spirometry with Pre/Post Bronchodilator Plethysmography (Lung Vol) Diffusing Cap (DLCO) Flow Vol Loop PFT Interpretation This is a pulmonary function test with pre and post-bronchodilator spirometry, plethysmography and diffusing capacity. The test was performed and results interpreted in accordance with the 2019 and 2005 ATS/ERS Task Force guidelines respectively using the Global Lung Function Initiative-2012 reference equations. Patient demonstrated good effort and cooperation. Reproducibility criteria were met. The quality of the pre bronchodilator spirometry maneuver was Grade A and post bronchodilator spirometry maneuver was Grade A. Findings: Spirometry: the contour the inspiratory and expiratory flow tracing are normal. The pre bronchodilator FVC is 2.17 L, 61% predicted. The pre bronchodilator FEV1 is 1.65 L, 61% predicted. Pre bronchodilator FEV1: FVC ratio 76%. The post bronchodilator FVC is 2.39 L, representing a 10% increase. The post bronchodilator FEV1 is 1.86 L, representing a 12% increase. The post bronchodilator FEV1: FVC ratio 78%. Plethysmography: The total lung capacity is 3.25 L, 52% predicted. The pre bronchodilator FVC is 1.07 L, 32% predicted. The residual volume is 1.02 L, 44% predicted. Diffusing capacity: The diffusing capacity unadjusted for hemoglobin and carboxyhemoglobin is 8.4, 36% predicted. The diffusing capacity adjusted for alveolar volume is 3.59, 89% predicted. Impression: There is a moderate restrictive ventilatory abnormality. The spirometry is normal without evidence of an obstructive abnormality. There is significant improvement after inhaling a single dose of albuterol. The diffusing capacity unadjusted for hemoglobin and carboxyhemoglobin is severely decreased and normalizes when adjusted for alveolar volume. There are no prior studies for comparison
== END 2022-09-28 09:11 | disposition home or self-care (01) ==
LOC: ANHPFT 09:11
PROVIDERS: PCP Physician Assistant Medical; Visit Provider Physician Assistant
DX: J44.9 Chronic obstructive pulmonary disease, unspecified (principal); R94.2 Abnormal results of pulmonary function studies
CPT/HCPCS: 94060; 94618; 94726; 94729

== ENCOUNTER 2022-10-04 08:01 | Outpatient (CLI) | payer MEDICARE, SELFPAY ==
--- NOTE | ~2022-10-04 | US_ITS ---
US arterial ankle brachial ind INDICATION: Peripheral vascular disease TECHNIQUE: Segmental pressures and plethysmographic and Doppler waveforms of the brachial and lower e xtremity arteries were obtained. COMPARISON: None. FINDINGS: Right and left brachial artery pressures of 143 mm Hg and 150 mm Hg, respectively, are concordant (no rmal difference <= 30 mmHg). The right ankle-brachial index (CHANTEL) is 1.1 (normal >= 0.9-1.0). The right great toe-brachial index ( TBI) is 0.51 (normal >= 0.60). The left CHANTEL is 1.17. The left TBI is 0.6. IMPRESSION: 1. Normal bilateral ankle-brachial indices. 2: Mildly decreased right toe brachial index, consistent with peripheral arterial disease. Reviewed, dictated and finalized at location A. IMPRESSION: 1. Normal bilateral ankle-brachial indices. 2: Mildly decreased right toe brachial index, consistent with peripheral arter ial disease.
== END 2022-10-04 08:02 | disposition home or self-care (01) ==
LOC: ANHIMG 08:01
PROVIDERS: PCP Physician Assistant Medical; Visit Provider Physician Assistant Medical
DX: I73.9 Peripheral vascular disease, unspecified (principal)
CPT/HCPCS: 93922

== ENCOUNTER 2022-10-08 07:40 | Inpatient (IN) | payer MEDICARE, SELFPAY ==
[2022-10-08] VITALS (10 sets, daily range): BP systolic 137–160; BP diastolic 66–89; PULSE 78–93; RESP 15–20; TEMP 36.4–37.1; O2SAT 94–97
--- NOTE | ~2022-10-08 | XR_ITS ---
XR chest 1V portable 10/08/2022 09:54 Indication: Dyspnea. Procedure: AP portable chest Comparison: 06/18/2022 Findings: Cardiomegaly. Mild interstitial edema. No significant effusion. No pneumothorax. There is a right shoulder arthroplasty. No acute osseous abnormality. Impression: 1: Cardiomegaly with mild interstitial edema. Reviewed, dictated and finalized at location B. Impression: 1: Cardiomegaly with mild interstitial edema.
--- NOTE | ~2022-10-08 | CT_ITS ---
EXAMINATION: CT brain wo con DATE: 10/08/2022 10:36 INDICATION: Dizziness TECHNIQUE: Computed tomography (CT) of the head was performed without intravenous contrast. The dose- length product was 605.33 mGy-cm. Automated exposure control and iterative reconstruction technique w ere employed. COMPARISON: MRI dated 05/18/2015 FINDINGS: Mild generalized atrophy. There are scattered mild periventricular and subcortical white ma tter changes, most likely related to small vessel ischemic disease (microangiopathy). No acute intrac ranial hemorrhage, infarction, mass or mass effect. There is intracranial atherosclerosis. No acute i ntracranial hemorrhage, infarction, mass or mass effect. No ventriculomegaly or midline shift. Basila r cisterns are patent. Paranasal sinuses and mastoids are pneumatized. No depressed skull fractures. IMPRESSION: 1. No acute intracranial abnormality. 2: Chronic age-related findings. Reviewed, dictated and finalized at location B.
--- NOTE | ~2022-10-08 | US_ITS ---
EXAMINATION:US venous doppler LE BI INDICATION:Leg swelling and calf pain TECHNIQUE: Multiple grayscale, color flow and Doppler images of the bilateral lower extremity deep ve nous systems were obtained and reviewed. COMPARISON:No prior studies for comparison. FINDINGS: The common femoral, superficial femoral and popliteal veins demonstrate normal respiratory variation, augmentation and compressibility. Color flow is also seen within the posterior tibial, pe roneal, greater saphenous and profunda veins. IMPRESSION: 1: No lower extremity deep venous thrombosis. Reviewed, dictated and finalized at location B.
--- NOTE | ~2022-10-08 | MR_ITS ---
MRI of the brain Clinical History: Weakness Technique: Axial and sagittal T1-weighted images were acquired. These were followed by axial T2-weigh caro, diffusion weighted, gradient, and FLAIR images. COMPARISON: 05/18/2015 Findings: There is no acute infarct, intracranial hemorrhage, or mass lesion. There are mild to moder ate chronic white matter changes in the periventricular white matter bilaterally. Ventricles and subarachnoid spaces are dilated. Orbits are unremarkable. Paranasal sinuses and mastoi d air cells are clear. Major intracranial flow voids are intact. Sagittal midline structures are intact. IMPRESSION: No acute intracranial hemorrhage, acute infarct, or mass lesion. Mild to moderate chronic microvascular ischemic changes and mild generalized atrophy. Reviewed, dictated and finalized at [facility]. IMPRESSION: No acute intracranial hemorrhage, acute infarct, or mass lesion. Mild to moderate chronic microvascular ischemic changes and mild generalized at [facility].
--- NOTE | 2022-10-08 08:48 | ECG_ITS ---
Measurements Intervals [place] Rate: 80 P: 40 MI: 289 QRS: -44 QRSD: 100 T: -1 QT: 383 QTc: 444 Interpretive Statements SINUS RHYTHM WITH FIRST DEGREE AV BLOCK WITH OCCASIONAL VENTRICULAR PREMATURE COMPLEXES LEFT AXIS DEVIATION PATTERN CONSISTENT WITH PULMONARY DISEASE ABNORMAL ECG COMPARED TO ECG 05/15/2022 11:59:36 HEART RATE HAS DECREASED AND FIRST-DEGREE AV BLOCK IS NOW PRESENT Electronically Signed On 10-08-2022 16:59:26 CDT by Main De La Rosa M.D.
--- NOTE | 2022-10-08 09:03 | ED.GENADULT ---
HPI - General Adult General Chief complaint: Extremity Problem,Nontraumatic Stated complaint: Swollen extremities Time Seen by Provider: 10/08/22 08:12 Source: RN notes reviewed History of Present Illness HPI narrative: Patient presents emergency department from home for lower extremity edema. Patient states he has been having swelling in his bilateral lower legs progressively worsening for the past 4 days. States he began with his feet and ankles and is progressed up his lower legs he states it is associate with some mild shortness of breath. Patient states over the past several months he has been worked up for being unstable on his feet states pain begins to walk a lot pain that starts in his feet and goes up to his mid calves states has had arterial studies as well as been work-up for pulmonology with this but he states that it causes him to be unsteady on his feet secondary to this he did stumble and strike his right forearm on a door frame 2 days ago causing a superficial abrasion over his right lateral forearm that his cleaned and dressed he denies any pain in that area he states he has no leg pain currently he denies any previous history of heart failure he denies any chest pain abdominal pain nausea or Related Data Home Medications Medication Instructions Recorded Confirmed levothyroxine 75 mcg tablet 75 mcg PO DAILY 05/07/19 09/24/22 (Synthroid) pantoprazole 20 mg tablet,delayed 20 mg PO BID 05/07/19 09/24/22 release (Protonix) ascorbic acid (vitamin C) 500 mg 500 mg PO DAILY 10/20/20 09/24/22 capsule ferrous sulfate 325 mg (65 mg 325 mg PO DAILY 10/20/20 09/24/22 iron) tablet (iron) cyanocobalamin (vitamin B-12) 1,000 mcg PO DAILY 12/27/20 09/24/22 1,000 mcg tablet cholecalciferol (vitamin D3) 25 25 mcg PO DAILY 04/27/21 09/24/22 mcg (1,000 unit) capsule pregabalin 75 mg capsule (Lyrica) 75 mg PO BID 11/03/21 09/24/22 atorvastatin 40 mg tablet 40 mg PO DAILY 02/23/22 09/24/22 omega-3 fatty acids 1,000 mg 1,000 mg PO BID 02/23/22 09/24/22 capsule (Fish Oil Concentrate) aspirin 81 mg tablet 81 mg PO DAILY 05/15/22 09/24/22 magnesium oxide 500 mg tablet 500 mg PO DAILY 07/12/22 09/24/22 zinc BYMOUTH 07/12/22 09/24/22 Allergies Allergy/AdvReac Type Severity Reaction Status Date / Time cetirizine [From Zyrtec-D] AdvReac Intermediate increased Verified 10/08/22 09:12 stomach acid pseudoephedrine AdvReac Intermediate increased Verified 10/08/22 09:12 [From Zyrtec-D] stomach acid venlafaxine [From Effexor] AdvReac Intermediate Diarrhea Verified 10/08/22 09:12 tamsulosin [From Flomax] AdvReac Unknown Dizziness Verified 10/08/22 11:21 Review of Systems Review of Systems: Gen.: Denies fevers or chills Eyes: Denies eye pain or visual change ENT: Denies congestion Respiratory: Reports intermittent shortness of breath denies cough CV: Denies chest pain or palpitations reports lower extremity edema GI: Denies abdominal pain nausea, emesis Musculoskeletal: Denies back pain or muscle pain Neuro: Denies numbness, tingling, weakness or focal weakness Skin: Reports right arm abrasion Except as documented, all other systems reviewed and negative [facility] Past Medical History Medical History CAD (coronary artery disease) COPD (chronic obstructive pulmonary disease) Degenerative joint disease of knee Diabetes mellitus Diet-controlled diabetes mellitus End stage renal disease In on dialysis for 3 weeks. No problems since then. Esophageal cancer GERD (gastroesophageal reflux disease) Gout High cholesterol Hyperlipidemia Hypertension Hypothyroidism ERMELINDA (iron deficiency anemia) Pneumonia Stomach ulcer TIA (transient ischemic attack) URI (upper respiratory infection) Surgical History Surgical History H/O esophagogastroduodenoscopy H/O foot surgery H/O hernia repair H/O
[2022-10-08 09:20] LABS: Basophils Absolute Auto 0.1 K/mm3 (0.0-0.1); Basophils Percent Auto 1.1 % (0.2-1.2); Eosinophils Absolute Auto 0.4 K/mm3 (0-0.3); Eosinophils Percent Auto 3.8 % (0-4.4); Hemoglobin 13.9 g/dL (14.0-18.0); Immature Granulocyte Absolute 0.06 K/mm3 (0.00-0.031); Immature Granulocyte Percent A 0.6 % (0-0.5); Lymphocytes Absolute Auto 1.39 K/mm3 (0.9-3.2); Lymphocytes Percent Auto 13.5 % (18.3-44.2); Mean Corpuscular HGB Conc 34.8 g/dl (32-36); Mean Corpuscular Hemoglobin 32.1 pg (26-34); Mean Corpuscular Volume 92.4 fl (80-100); Mean Platelet Volume 9.7 fl (7.4-10.4); Monocytes Absolute Auto 1.3 K/mm3 (0.1-0.6); Monocytes Percent Auto 12.4 % (2.6-8.5); Neutrophils Absolute Auto 7.1 K/mm3 (1.3-6.7); Neutrophils Percent Auto 68.6 % (45.5-73.1); Platelet Count Result 239 k/mm3 (150-375); Red Blood Count 4.33 M/mm3 (4.6-6.20); White Blood Count 10.3 K/mm3 (4.5-10.0)
[2022-10-08 09:33] LABS: Alanine Aminotransferase 24 U/L (6-50); Albumin Level 3.7 g/dL (3.5-5.1); Alkaline Phosphatase 140 U/L (38-126); Anion Gap 4 mmol/L (8-16); Aspartate Amino Transferase 27 U/L (17-59); Bilirubin,Total 1.7 mg/dL (0.2-1.3); Blood Urea Nitrogen 14 mg/dL (9-20); Calcium 8.3 mg/dL (8.4-10.2); Carbon Dioxide 27 mmol/L (22-30); Chloride 94 mmol/L (98-107); Estimated CRCL calculation 52 ml/min; Estimated Glomerular Filt Rate > 60; Glucose 90 mg/dL (65-110); Potassium 4.2 mmol/L (3.4-5.0); Sodium 125 mmol/L (137-145)
[2022-10-08 09:35] LABS: INR 1.1
[2022-10-08 09:44] LABS: NT Pro B Type Natriuretic Pept 857 pg/mL (19.9-100); Troponin I < 0.012 ng/mL (0.000-0.034)
--- NOTE | 2022-10-08 09:46 | PC.NURSE ---
Pt to U/S via stretcher.
[2022-10-08 10:04] LABS: Partial Thromboplastin Time 29.7 SECONDS (22.3-36.8)
[2022-10-08] MEDS: ceFAZolin 1 GM/NS 50 ML 1 GM/50 ML BAG IVPB ×2 (11:39→20:37)
[2022-10-08 11:49] LABS: Lactic Acid Reflex 0.8 mmol/L (0.7-2.0)
[2022-10-08 14:58] LABS: Troponin I < 0.012 ng/mL (0.000-0.034)
[2022-10-08 18:12] LABS: Troponin I < 0.012 ng/mL (0.000-0.034)
--- NOTE | 2022-10-08 20:37 | PM.IMHP ---
H&P: HPI History of Present Illness Date/Time: 10/08/22 20:37 Chief Complaint: Swollen extremity Narrative: This is a 72-year-old male patient who does not have a history of congestive heart failure and came to the emergency room for edema to his lower extremities that have been progressively getting worse for last 4 days. Patient also has mild shortness of breath. The patient stated that he is somewhat unstable on his feet and he fell 2 days ago and sustained a skin tear to his right forearm. He stated that he fell and abraded his arm on the door frame. Head CT was read as no acute intracranial abnormality. Chronic age-related findings. Chest x-ray was read as cardiomegaly with mild interstitial edema. Venous Doppler was read as no lower extremity deep vein thrombosis. The patient had ankle brachial index on 10/04/2022 which was read as normal bilateral ankle brachial indices. Mildly decreased right toe brachial index consistent with peripheral artery disease. The patient was started on Ancef for cellulitis his right forearm. Patient has multiple bruises on both of his arms. His H&H is 13.9 and 40.0 which is near his baseline. His sodium is 125 and repeat is 125. The patient is being admitted to inpatient status on the date of service of 10/08/2022. Review of Systems Review of Systems: All systems reviewed & are unremarkable except as noted in HPI and below Constitutional: Constitutional: Reports as per HPI and Reports no additional constitutional complaints Eyes: Eyes: Reports as per HPI and Reports no additional eye complaints ENT: Reports system reviewed and no additional complaints, except as documented and Reports Normal hearing present Cardiovascular: Cardiovascular: Reports no additional cardiovascular complaints Respiratory: Respiratory: Reports no additional respiratory complaints and Reports no additional respiratory complaints Gastrointestinal: Gastrointestinal: Reports as per HPI and Reports no additional gastrointestinal complaints Musculoskeletal: Musculoskeletal: Reports no additional musculoskeletal complaints Integumentary/Breasts: Skin/Breast: Reports system reviewed and no additional complaints, except as docu and Reports as per HPI Neurologic: Reports system reviewed and no additional complaints, except as documented, Reports as per HPI and Reports Normal hearing present Psychiatric: Psychiatric: Reports no additional psychiatric complaints and Reports as per HPI Endocrine: Endocrine: Reports no additional endocrine complaints Hematologic/Lymphatic: Hematologic/Lymphatic: Reports no additional hematologic/lymphatic complaints Allergic/Immunologic: Allergic/Immunologic: Reports no additional allergic/immunologic complaints [facility] Past Medical History Medical History (Updated 10/08/22 @ 23:36 by Charissa Chauhan NP) 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 No problems since then. Esophageal cancer GERD (gastroesophageal reflux disease) Gout High cholesterol Hyperlipidemia Hypertension Hypothyroidism ERMELINDA (iron deficiency anemia) Pneumonia Rotator cuff tear arthropathy Stomach ulcer TIA (transient ischemic attack) URI (upper respiratory infection) Surgical History Surgical History H/O esophagogastroduodenoscopy H/O foot surgery H/O hernia repair H/O repair of rotator cuff History of colonoscopy History of esophagectomy 1999; had 14 years of follow up, no recurrence History of reverse total replacement of shoulder joint Status post left partial knee replacement 2012 Status post right partial knee replacement 11/09/2020 Family History Family History
[2022-10-08 21:37] LABS: Anion Gap 5 mmol/L (8-16); Blood Urea Nitrogen 13 mg/dL (9-20); Calcium 8.2 mg/dL (8.4-10.2); Carbon Dioxide 26 mmol/L (22-30); Chloride 94 mmol/L (98-107); Estimated CRCL calculation 57 ml/min; Estimated Glomerular Filt Rate > 60; Glucose 105 mg/dL (65-110); Potassium 4.2 mmol/L (3.4-5.0); Sodium 125 mmol/L (137-145)
[2022-10-09] VITALS (9 sets, daily range): BP systolic 117–142; BP diastolic 62–83; PULSE 62–99; RESP 16–18; TEMP 36.4–36.9; O2SAT 93–96
--- NOTE | 2022-10-09 | ECHO_ITS ---
Patient Info Name: Александр Villanueva Age: 72 years : 1950 Gender: Male Ht: 66 in Wt: 158 lbs BSA: 1.84 m2 HR: 95 bpm BP: 135 / 83 mmHg Technical Quality: Good Exam Date: 10/09/2022 9:08 AM Exam Location: [facility] Patient Status: Inpatient Admit Date: 10/08/2022 Staff Ordering Physician: Charissa Chauhan NP Trimmer Operator Three Knife: John Farmer RDCS, RT Attending Provider: Jay Meyer MD Referring Physician: Gissel ORELLANA; Exam Type: CA echo doppler color flow Study Info Indications R60.0 - Localized edema Complete two-dimensional, color flow and Doppler transthoracic echocardiogram is performed. Strain analysis performed. Summary 1. Complete two-dimensional, color flow and Doppler transthoracic echocardiogram is performed. 2. Left ventricular chamber dimension is normal. 3. Left ventricular systolic function is normal, estimated at 60-65%. 4. There is mild concentric increased left ventricular wall thickness. 5. The left ventricular diastolic function is normal. 6. E/e' 9 is minimally elevated. 7. Global longitudinal strain is normal at -17.6%. 8. There is mild mitral valve regurgitation. 9. There is trace tricuspid valve regurgitation. 10. Mild pulmonary hypertension, estimated pulmonary arterial systolic pressure is 42 mmHg. Left Ventricle E/e' 9 is minimally elevated. Global longitudinal strain is normal at -17.6%. Left ventricular chamber dimension is normal. Left ventricular systolic function is normal, estimated at 60-65%. There is mild concentric increased left ventricular wall thickness. The left ventricular diastolic function is normal. Right Ventricle Right ventricular systolic function is normal and with normal TAPSE 2.0 cm. Right ventricular chamber dimension is normal. Left Atria Left atrial chamber dimension is normal. Right Atria Right atrial chamber dimension is normal. Aortic Valve The aortic valve is trileaflet. There is no aortic valve stenosis. There is no aortic valve regurgitation. Pulmonic Valve There is no pulmonic regurgitation. Mitral Valve There is no mitral valve stenosis. There is mild mitral valve regurgitation. Tricuspid Valve There is trace tricuspid valve regurgitation. Mild pulmonary hypertension, estimated pulmonary arterial systolic pressure is 42 mmHg. Pericardium/Pleural There is no pericardial effusion. Inferior Vena Cava Normal inferior vena cava with >50% collapse upon inspiration consistent with normal right atrial pressure, 5 mmHg. Aorta The aortic root size at the sinus of Valsalva is normal. Left Ventricular Outflow Tract Name Value Normal LVOT 2D LVOT Diameter 1.9 cm LVOT Doppler LVOT Peak Gradient 5 mmHg LVOT Mean Gradient 3 mmHg LVOT VTI 20 cm LVOT Stroke Volume 58 ml LVOT CO 5.2 l/min LVOT CI 2.8 l/min/m2 Mitral Valve Name
[2022-10-09] MEDS: PREGABALIN (*CRX) 75 MG CAPSULE PO ×3 (00:27→16:50)
[2022-10-09] MEDS: OMEGA 3 POLYUNSAT FATTY ACIDS 1 GM CAP PO ×3 (00:27→16:50)
[2022-10-09] MEDS: allopurinoL 100 MG TABLET PO ×3 (00:27→16:51)
[2022-10-09] MEDS: PANTOPRAZOLE SOD SESQUIHYDRATE 20 MG TAB PO ×3 (00:27→16:50)
[2022-10-09 00:54] LABS: Sodium Urine Random 46 meq/L
[2022-10-09] MEDS: ceFAZolin 1 GM/NS 50 ML 1 GM/50 ML BAG IVPB (05:03)
[2022-10-09] MEDS: LEVOTHYROXINE SODIUM 75 MCG TABLET PO (05:05)
[2022-10-09 06:01] LABS: Basophils Absolute Auto 0.1 K/mm3 (0.0-0.1); Basophils Percent Auto 1.1 % (0.2-1.2); Eosinophils Absolute Auto 0.3 K/mm3 (0-0.3); Eosinophils Percent Auto 3.8 % (0-4.4); Hematocrit 38.1 % (42.0-52.0); Hemoglobin 12.9 g/dL (14.0-18.0); Immature Granulocyte Absolute 0.05 K/mm3 (0.00-0.031); Immature Granulocyte Percent A 0.6 % (0-0.5); Lymphocytes Absolute Auto 1.15 K/mm3 (0.9-3.2); Mean Corpuscular HGB Conc 33.9 g/dl (32-36); Mean Corpuscular Hemoglobin 30.6 pg (26-34); Mean Corpuscular Volume 90.3 fl (80-100); Mean Platelet Volume 9.8 fl (7.4-10.4); Monocytes Absolute Auto 1.3 K/mm3 (0.1-0.6); Monocytes Percent Auto 14.4 % (2.6-8.5); Neutrophils Percent Auto 67.1 % (45.5-73.1); Platelet Count Result 249 k/mm3 (150-375); Red Blood Count 4.22 M/mm3 (4.6-6.20); Red Cell Distribution Width 13.8 % (11.5-14.5); White Blood Count 8.9 K/mm3 (4.5-10.0)
[2022-10-09 06:09] LABS: Lactic Acid Reflex 0.7 mmol/L (0.7-2.0)
[2022-10-09 06:12] LABS: Alanine Aminotransferase 25 U/L (6-50); Albumin Level 3.5 g/dL (3.5-5.1); Alkaline Phosphatase 137 U/L (38-126); Anion Gap 4 mmol/L (8-16); Aspartate Amino Transferase 32 U/L (17-59); Bilirubin,Total 1.3 mg/dL (0.2-1.3); Blood Urea Nitrogen 12 mg/dL (9-20); Calcium 7.9 mg/dL (8.4-10.2); Carbon Dioxide 27 mmol/L (22-30); Chloride 95 mmol/L (98-107); Estimated CRCL calculation 57 ml/min; Estimated Glomerular Filt Rate > 60; Glucose 88 mg/dL (65-110); Sodium 126 mmol/L (137-145)
[2022-10-09 06:30] LABS: Hemoglobin A1C 5.7 % (<5.7)
[2022-10-09] MEDS: UMECLIDINIUM/VILANTEROL 62.5-25 MCG ELLIPTA 1 PUFF INHALATION (08:11)
[2022-10-09] MEDS: metroNIDAZOLE 500 MG/ISO 100ML 500 MG/100 ML BAG 100 MG IVPB (08:38)
[2022-10-09] MEDS: ATORVASTATIN 40 MG TABLET PO (08:39)
[2022-10-09] MEDS: ASCORBIC ACID 500 MG TABLET PO (08:39)
[2022-10-09] MEDS: ASPIRIN 81 MG ENTERIC TABLET PO (08:39)
[2022-10-09] MEDS: FERROUS SULFATE 324 MG TABLET PO (08:40)
[2022-10-09] MEDS: CYANOCOBALAMIN 1,000 MCG TABLET 1000 MCG PO (08:40)
[2022-10-09] MEDS: CHOLECALCIFEROL 1,000 UNITS TABLET 1000 UNITS PO (08:40)
[2022-10-09] MEDS: FUROSEMIDE INJ 40 MG/4 ML VIAL IV PUSH (08:41)
[2022-10-09 09:25] LABS: Free T4 Free Thyroxine Reflex 1.39 ng/dL (0.78-2.19)
[2022-10-09] MEDS: CEFEPIME 2 GM/NS 50 ML 2 GM/50 ML BAG IVPB (09:46)
--- NOTE | 2022-10-09 10:00 | PM.IMPN ---
Progress Note: A&P Assessment and Plan (1) Lower extremity edema: Code(s): R60.0 - Localized edema Status: Acute Assessment and Plan: Venous Dopplers were negative. Start lasix BID, however, will need to keep close eye on sodium Echo ordered for possible CHF indication Consider caro masters if indicated Trend edema Could be related to cellulitis diagnosis (2) Cellulitis: Code(s): L03.90 - Cellulitis, unspecified Status: Acute Assessment and Plan: Presented with lower extremity edema that has been worsening over the last 4 days Venous Doppler was read as no lower extremity deep vein thrombosis. ankle brachial index on 10/04/2022 which was read as normal bilateral ankle brachial indices WBC stable at 8.9 DC all antibiotics at this time Trend labs Trend symptoms and appearance Seems to be either resolved or just a case of lower extremity edema (3) Hyponatremia: Code(s): E87.1 - Hypo-osmolality and hyponatremia Status: Acute Assessment and Plan: Na at admission 125, currently 126 BNP slightly elevated 852 FENa score per estimated urine creatinine at 0.2% indicated Give some lasix as this could be fluid overload repeat labs this afternoon Trend sodium Consider asking nephrology for help if continues to worsen (4) Gout: Code(s): M10.9 - Gout, unspecified Status: Acute Assessment and Plan: Continue with allopurinol Chronic no acute concerns (5) Diet-controlled diabetes mellitus: Code(s): E11.9 - Type 2 diabetes mellitus without complications Status: Acute Assessment and Plan: Current glucose 88 Accu-Cheks AC and HS A1c 5.7 Hypoglycemic protocol Trend glucose add sliding scale if indicated (6) Hyperlipidemia: Code(s): E78.5 - Hyperlipidemia, unspecified Status: Chronic Assessment and Plan: Continue with atorvastatin Chronic and stable (7) Hypothyroidism: Code(s): E03.9 - Hypothyroidism, unspecified Status: Chronic Assessment and Plan: Continue with Synthroid TSH 5.550, T3 , T4 1.39 Adjust medications as indicated (8) COPD (chronic obstructive pulmonary disease): Code(s): J44.9 - Chronic obstructive pulmonary disease, unspecified Status: Chronic Assessment and Plan: Continue with home inhalers Chronic No indication of exacerbation or oxygen need Time Spent With Patient Time: 53 minutes Time with patient: Greater than 35 minutes Subjective Date/time seen: 10/09/22 1000 Interval history: 10/09/22 1000 Patient is doing well. He does not have any notable reddening or any type of cellulitis type of look to the bilateral lower extremities. He stated that he is feeling better. He stated that he has never really had any pain, redness, or fever to either leg. He does have some pretty significant bruising which he stated was from his fall. He denies any chest pain, shortness of breath, nausea, vomiting, diarrhea, or constipation. will DC all antibiotics at this time as there is no signs and symptoms cellulitis. Leg swelling has resolved. Will recheck sodium this afternoon. 10/08/22? 20:37 This is a 72-year-old male patient who does not have a history of congestive heart failure and came to the emergency room for edema to his lower extremities that have been progressively getting worse for last 4 days.? Patient also has mild shortness of breath.? The patient stated that he is somewhat unstable on his feet and he fell 2 days ago and sustained a skin tear to his right forearm.? He stated that he fell and abraded his arm on the door frame.? Head CT was read as no acute intracranial abnormality.? Chronic age-related findings.? Chest x-ray was read as cardiomegaly with mild interstitial edema.? Venous
--- NOTE | 2022-10-09 10:00 | P.PNIM_ITS ---
Progress Note: A&P Assessment and Plan (1) Lower extremity edema: Code(s): R60.0 - Localized edema Status: Acute Assessment and Plan: * Venous Dopplers were negative. * Start lasix BID, however, will need to keep close eye on sodium * Echo ordered for possible CHF indication * Consider caro hose if indicated * Trend edema * Could be related to cellulitis diagnosis (2) Cellulitis: Code(s): L03.90 - Cellulitis, unspecified Status: Acute Assessment and Plan: * Presented with lower extremity edema that has been worsening over the last 4 days * Venous Doppler was read as no lower extremity deep vein thrombosis. * ankle brachial index on 10/04/2022 which was read as normal bilateral ankle brachial indices * WBC stable at 8.9 * DC all antibiotics at this time * Trend labs * Trend symptoms and appearance * Seems to be either resolved or just a case of lower extremity edema (3) Hyponatremia: Code(s): E87.1 - Hypo-osmolality and hyponatremia Status: Acute Assessment and Plan: * Na at admission 125, currently 126 * BNP slightly elevated 852 * FENa score per estimated urine creatinine at 0.2% indicated * Give some lasix as this could be fluid overload * repeat labs this afternoon * Trend sodium * Consider asking nephrology for help if continues to worsen (4) Gout: Code(s): M10.9 - Gout, unspecified Status: Acute Assessment and Plan: * Continue with allopurinol * Chronic no acute concerns (5) Diet-controlled diabetes mellitus: Code(s): E11.9 - Type 2 diabetes mellitus without complications Status: Acute Assessment and Plan: * Current glucose 88 * Accu-Cheks AC and HS * A1c 5.7 * Hypoglycemic protocol * Trend glucose * add sliding scale if indicated (6) Hyperlipidemia: Code(s): E78.5 - Hyperlipidemia, unspecified Status: Chronic Assessment and Plan: * Continue with atorvastatin * Chronic and stable (7) Hypothyroidism: Code(s): E03.9 - Hypothyroidism, unspecified Status: Chronic Assessment and Plan: * Continue with Synthroid * TSH 5.550, T3 , T4 1.39 * Adjust medications as indicated (8) COPD (chronic obstructive pulmonary disease): Code(s): J44.9 - Chronic obstructive pulmonary disease, unspecified Status: Chronic Assessment and Plan: * Continue with home inhalers * Chronic * No indication of exacerbation or oxygen need Time Spent With Patient Time: 53 minutes Time with patient: Greater than 35 minutes Subjective Date/time seen: 10/09/22 1000 Interval history: 10/09/22999 Patient is doing well. He does not have any notable reddening or any type of cellulitis type of look to the bilateral lower extremities. He stated that he is feeling better. He stated that he has never really had any pain, redness, or fever to either leg. He does have some pretty significant bruising which he stated was from his fall. He denies any chest pain, shortness of breath, nausea, vomiting, diarrhea, or constipation. will DC all antibiotics at this time as there is no signs and symptoms cellulitis.
[2022-10-09 11:24] LABS: Total Triiodothyronine (T3) 1.25 NG/ML (0.97-1.69)
[2022-10-09 14:27] LABS: Sodium 126 mmol/L (137-145)
[2022-10-09] MEDS: SODIUM CHLORIDE 0.9% IV 1,000 ML 100 ML IV CONT (15:27)
--- NOTE | 2022-10-09 18:42 | PC.NURSE ---
On 10/09/22, the License pending RN Ashley, provided care and completed [employer] documentation on this patient. I have reviewed Ashley's tubing mill setter and agree with the findings.
[2022-10-09 21:48] LABS: Glucose Point of Care 137 mg/dl (65-105)
[2022-10-09 22:26] LABS: Creatinine Urine 112.7 mg/dL
[2022-10-10] VITALS (10 sets, daily range): BP systolic 128–144; BP diastolic 73–83; PULSE 85–109; RESP 18; TEMP 36.6; O2SAT 93–95
[2022-10-10] MEDS: SODIUM CHLORIDE 0.9% IV 1,000 ML 100 ML IV CONT ×2 (03:28→20:28)
[2022-10-10] MEDS: LEVOTHYROXINE SODIUM 75 MCG TABLET PO (05:14)
[2022-10-10 05:49] LABS: Basophils Absolute Auto 0.1 K/mm3 (0.0-0.1); Basophils Percent Auto 1.4 % (0.2-1.2); Eosinophils Absolute Auto 0.3 K/mm3 (0-0.3); Eosinophils Percent Auto 2.7 % (0-4.4); Hematocrit 41.1 % (42.0-52.0); Hemoglobin 14.1 g/dL (14.0-18.0); Immature Granulocyte Absolute 0.05 K/mm3 (0.00-0.031); Immature Granulocyte Percent A 0.5 % (0-0.5); Lymphocytes Absolute Auto 1.28 K/mm3 (0.9-3.2); Lymphocytes Percent Auto 13.4 % (18.3-44.2); Mean Corpuscular HGB Conc 34.3 g/dl (32-36); Mean Corpuscular Volume 93.2 fl (80-100); Mean Platelet Volume 9.7 fl (7.4-10.4); Monocytes Absolute Auto 1.4 K/mm3 (0.1-0.6); Monocytes Percent Auto 14.6 % (2.6-8.5); Neutrophils Absolute Auto 6.4 K/mm3 (1.3-6.7); Neutrophils Percent Auto 67.4 % (45.5-73.1); Platelet Count Result 270 k/mm3 (150-375); Red Blood Count 4.41 M/mm3 (4.6-6.20); Red Cell Distribution Width 14.1 % (11.5-14.5); White Blood Count 9.6 K/mm3 (4.5-10.0)
[2022-10-10 06:07] LABS: Alanine Aminotransferase 26 U/L (6-50); Albumin Level 3.9 g/dL (3.5-5.1); Alkaline Phosphatase 138 U/L (38-126); Anion Gap 5 mmol/L (8-16); Aspartate Amino Transferase 39 U/L (17-59); Bilirubin,Total 1.4 mg/dL (0.2-1.3); Blood Urea Nitrogen 12 mg/dL (9-20); Calcium 8.4 mg/dL (8.4-10.2); Carbon Dioxide 29 mmol/L (22-30); Chloride 96 mmol/L (98-107); Estimated CRCL calculation 52 ml/min; Estimated Glomerular Filt Rate > 60; Glucose 99 mg/dL (65-110); Sodium 130 mmol/L (137-145)
[2022-10-10] MEDS: ASPIRIN 81 MG ENTERIC TABLET PO (08:20)
[2022-10-10] MEDS: allopurinoL 100 MG TABLET PO ×2 (08:20→16:34)
[2022-10-10] MEDS: ASCORBIC ACID 500 MG TABLET PO (08:20)
[2022-10-10] MEDS: CYANOCOBALAMIN 1,000 MCG TABLET 1000 MCG PO (08:21)
[2022-10-10] MEDS: FERROUS SULFATE 324 MG TABLET PO (08:21)
[2022-10-10] MEDS: ATORVASTATIN 40 MG TABLET PO (08:21)
[2022-10-10] MEDS: CHOLECALCIFEROL 1,000 UNITS TABLET 1000 UNITS PO (08:21)
[2022-10-10] MEDS: OMEGA 3 POLYUNSAT FATTY ACIDS 1 GM CAP PO ×2 (08:21→16:33)
[2022-10-10] MEDS: PANTOPRAZOLE SOD SESQUIHYDRATE 20 MG TAB PO ×2 (08:22→16:34)
[2022-10-10] MEDS: PREGABALIN (*CRX) 75 MG CAPSULE PO ×2 (08:22→16:37)
[2022-10-10] MEDS: UMECLIDINIUM/VILANTEROL 62.5-25 MCG ELLIPTA 1 PUFF INHALATION (08:35)
--- NOTE | 2022-10-10 09:30 | PM.IMPN ---
Progress Note: A&P Assessment and Plan (1) Lower extremity edema: Code(s): R60.0 - Localized edema Status: Acute Assessment and Plan: Venous Dopplers were negative. Start lasix BID, stopped with sodium falling Echo EF of 60-65% with normal diastolic function Consider caro masters if indicated Trend edema (2) Cellulitis: Code(s): L03.90 - Cellulitis, unspecified Status: Acute Assessment and Plan: Presented with lower extremity edema that has been worsening over the last 4 days Venous Doppler was read as no lower extremity deep vein thrombosis. ankle brachial index on 10/04/2022 which was read as normal bilateral ankle brachial indices WBC stable at 9.6 DC all antibiotics at this time Trend labs Trend symptoms and appearance Seems to be either resolved or just a case of lower extremity edema (3) Hyponatremia: Code(s): E87.1 - Hypo-osmolality and hyponatremia Status: Acute Assessment and Plan: Na at admission 125, currently 130 BNP slightly elevated 852 FENa score per estimated urine creatinine at 0.2% indicated Started patient on fluids, sodium came up to 130 Trend sodium Consider asking nephrology for help if continues to worsen (4) Gout: Code(s): M10.9 - Gout, unspecified Status: Acute Assessment and Plan: Continue with allopurinol Chronic no acute concerns (5) Diet-controlled diabetes mellitus: Code(s): E11.9 - Type 2 diabetes mellitus without complications Status: Acute Assessment and Plan: Current glucose 99 Accu-Cheks AC and HS A1c 5.7 Hypoglycemic protocol Trend glucose add sliding scale if indicated (6) Hyperlipidemia: Code(s): E78.5 - Hyperlipidemia, unspecified Status: Chronic Assessment and Plan: Continue with atorvastatin Chronic and stable (7) Hypothyroidism: Code(s): E03.9 - Hypothyroidism, unspecified Status: Chronic Assessment and Plan: Continue with Synthroid TSH 5.550, T3 1.25, T4 1.39 Adjust medications as indicated (8) COPD (chronic obstructive pulmonary disease): Code(s): J44.9 - Chronic obstructive pulmonary disease, unspecified Status: Chronic Assessment and Plan: Continue with home inhalers Chronic No indication of exacerbation or oxygen need (9) Generalized weakness: Code(s): R53.1 - Weakness Status: Acute Assessment and Plan: Unsure about length of time Wide gait witnessed with walking Walker is needed for ambulation Could be related to sodium Could be related to general deconditioning Get MRI of the brain to rule out a potential stroke Time Spent With Patient Time: 53 minutes, 26 minutes with patient walking and gait examination Time with patient: Greater than 35 minutes Subjective Date/time seen: 10/10/22929 Interval history: 10/10/22929 Patient was lying in bed. Ask patient if he would walk. Patient agreed to get up and walk however when he sat on the side the bed he was unable to hold himself up until about the 3rd time. He then complained of some dizziness. The dizziness did resolve. He was able to stand with a walker and walk in the null however as we were walking back he did state that his legs felt a little weaker and he was also walking with a very wide gait. Patient was able to get the chair and is able to sit in a chair by himself. Patient also seems to be uncoordinated is can not see things in front of and seems as were walking. Will wear walking he would come up to an object and would not move the walker to walk around it. I asked him if he was having any visual changes however he denied any current changes. He does seems to have a coordination displacement problem. He did deny any chest pain,
--- NOTE | 2022-10-10 09:30 | P.PNIM_ITS ---
Progress Note: A&P Assessment and Plan (1) Lower extremity edema: Code(s): R60.0 - Localized edema Status: Acute Assessment and Plan: * Venous Dopplers were negative. * Start lasix BID, stopped with sodium falling * Echo EF of 60-65% with normal diastolic function * Consider caro hose if indicated * Trend edema (2) Cellulitis: Code(s): L03.90 - Cellulitis, unspecified Status: Acute Assessment and Plan: * Presented with lower extremity edema that has been worsening over the last 4 days * Venous Doppler was read as no lower extremity deep vein thrombosis. * ankle brachial index on 10/04/2022 which was read as normal bilateral ankle brachial indices * WBC stable at 9.6 * DC all antibiotics at this time * Trend labs * Trend symptoms and appearance * Seems to be either resolved or just a case of lower extremity edema (3) Hyponatremia: Code(s): E87.1 - Hypo-osmolality and hyponatremia Status: Acute Assessment and Plan: * Na at admission 125, currently 130 * BNP slightly elevated 852 * FENa score per estimated urine creatinine at 0.2% indicated * Started patient on fluids, sodium came up to 130 * Trend sodium * Consider asking nephrology for help if continues to worsen (4) Gout: Code(s): M10.9 - Gout, unspecified Status: Acute Assessment and Plan: * Continue with allopurinol * Chronic no acute concerns (5) Diet-controlled diabetes mellitus: Code(s): E11.9 - Type 2 diabetes mellitus without complications Status: Acute Assessment and Plan: * Current glucose 99 * Accu-Cheks AC and HS * A1c 5.7 * Hypoglycemic protocol * Trend glucose * add sliding scale if indicated (6) Hyperlipidemia: Code(s): E78.5 - Hyperlipidemia, unspecified Status: Chronic Assessment and Plan: * Continue with atorvastatin * Chronic and stable (7) Hypothyroidism: Code(s): E03.9 - Hypothyroidism, unspecified Status: Chronic Assessment and Plan: * Continue with Synthroid * TSH 5.550, T3 1.25, T4 1.39 * Adjust medications as indicated (8) COPD (chronic obstructive pulmonary disease): Code(s): J44.9 - Chronic obstructive pulmonary disease, unspecified Status: Chronic Assessment and Plan: * Continue with home inhalers * Chronic * No indication of exacerbation or oxygen need (9) Generalized weakness: Code(s): R53.1 - Weakness Status: Acute Assessment and Plan: * Unsure about length of time * Wide gait witnessed with walking * Walker is needed for ambulation * Could be related to sodium * Could be related to general deconditioning * Get MRI of the brain to rule out a potential stroke Time Spent With Patient Time: 53 minutes, 26 minutes with patient walking and gait examination Time with patient: Greater than 35 minutes Subjective Date/time seen: 10/10/22929 Interval history: 10/10/22929 Patient was lying in bed. Ask patient if he would walk. Patient agreed to get up and walk however when he sat on the side the bed he was unable to
--- NOTE | 2022-10-10 14:23 | PC.NURSE ---
On 10/10/22, the student, [Robina Bravo], provided care and completed [facility] documentation on this patient. I have reviewed the student's documentation and agree with the findings.
--- NOTE | 2022-10-10 18:35 | PC.NURSE ---
On 10/10/22, the License pending RN Ashley, provided care and completed [employer] documentation on this patient. I have reviewed Ashley's tail ripper and agree with the findings.
[2022-10-10 20:47] LABS: Glucose Point of Care 122 mg/dl (65-105)
[2022-10-11] VITALS: PULSE 90
[2022-10-11 04:00] VITALS: PULSE 85
[2022-10-11 04:51] VITALS: BP 134/81; PULSE 85; RESP 18; TEMP 36.6; O2SAT 96
[2022-10-11 07:09] LABS: Estimated CRCL calculation 52 ml/min; Estimated Glomerular Filt Rate > 60
[2022-10-11 07:59] LABS: Anion Gap 6 mmol/L (8-16); Blood Urea Nitrogen 10 mg/dL (9-20); Calcium 8.4 mg/dL (8.4-10.2); Carbon Dioxide 24 mmol/L (22-30); Chloride 102 mmol/L (98-107); Estimated CRCL calculation 52 ml/min; Estimated Glomerular Filt Rate > 60; Glucose 92 mg/dL (65-110); Potassium 4.2 mmol/L (3.4-5.0); Sodium 132 mmol/L (137-145)
[2022-10-11 08:00] VITALS: PULSE 67
[2022-10-11] MEDS: allopurinoL 100 MG TABLET PO (08:25)
[2022-10-11] MEDS: OMEGA 3 POLYUNSAT FATTY ACIDS 1 GM CAP PO (08:25)
[2022-10-11] MEDS: CHOLECALCIFEROL 1,000 UNITS TABLET 1000 UNITS PO (08:25)
[2022-10-11] MEDS: ASCORBIC ACID 500 MG TABLET PO (08:25)
[2022-10-11] MEDS: SODIUM CHLORIDE 0.9% IV 1,000 ML 100 ML IV CONT (08:25)
[2022-10-11] MEDS: ASPIRIN 81 MG ENTERIC TABLET PO (08:25)
[2022-10-11] MEDS: FERROUS SULFATE 324 MG TABLET PO (08:25)
[2022-10-11] MEDS: ATORVASTATIN 40 MG TABLET PO (08:25)
[2022-10-11] MEDS: PANTOPRAZOLE SOD SESQUIHYDRATE 20 MG TAB PO (08:25)
[2022-10-11] MEDS: CYANOCOBALAMIN 1,000 MCG TABLET 1000 MCG PO (08:25)
[2022-10-11] MEDS: PREGABALIN (*CRX) 75 MG CAPSULE PO (08:25)
[2022-10-11] MEDS: LEVOTHYROXINE SODIUM 75 MCG TABLET PO (08:25)
[2022-10-11] MEDS: UMECLIDINIUM/VILANTEROL 62.5-25 MCG ELLIPTA 1 PUFF INHALATION (08:44)
[2022-10-11 08:48] LABS: Glucose Point of Care 94 mg/dl (65-105)
--- NOTE | 2022-10-11 10:30 | PM.DS ---
DS: Admitting Diagnosis Discharge Date 10/11/22 1030 Admitting Diagnosis lower extremity edema, hyponatremia, fall DS: Discharge Diagnosis Discharge Diagnosis (1) Lower extremity edema: Code(s): R60.0 - Localized edema Status: Acute Assessment and Plan: Venous Dopplers were negative. Start lasix BID, stopped with sodium falling Echo EF of 60-65% with normal diastolic function Consider caro hose if indicated Trend edema (2) Cellulitis: Code(s): L03.90 - Cellulitis, unspecified Status: Acute Assessment and Plan: Presented with lower extremity edema that has been worsening over the last 4 days Venous Doppler was read as no lower extremity deep vein thrombosis. ankle brachial index on 10/04/2022 which was read as normal bilateral ankle brachial indices WBC stable at 9.6 DC all antibiotics at this time Trend labs Trend symptoms and appearance Seems to be either resolved or just a case of lower extremity edema (3) Hyponatremia: Code(s): E87.1 - Hypo-osmolality and hyponatremia Status: Acute Assessment and Plan: Na at admission 125, currently 130 BNP slightly elevated 852 FENa score per estimated urine creatinine at 0.2% indicated Started patient on fluids, sodium came up to 130 Trend sodium Consider asking nephrology for help if continues to worsen (4) Gout: Code(s): M10.9 - Gout, unspecified Status: Acute Assessment and Plan: Continue with allopurinol Chronic no acute concerns (5) Diet-controlled diabetes mellitus: Code(s): E11.9 - Type 2 diabetes mellitus without complications Status: Acute Assessment and Plan: Current glucose 99 Accu-Cheks AC and HS A1c 5.7 Hypoglycemic protocol Trend glucose add sliding scale if indicated (6) Hyperlipidemia: Code(s): E78.5 - Hyperlipidemia, unspecified Status: Chronic Assessment and Plan: Continue with atorvastatin Chronic and stable (7) Hypothyroidism: Code(s): E03.9 - Hypothyroidism, unspecified Status: Chronic Assessment and Plan: Continue with Synthroid TSH 5.550, T3 1.25, T4 1.39 Adjust medications as indicated (8) COPD (chronic obstructive pulmonary disease): Code(s): J44.9 - Chronic obstructive pulmonary disease, unspecified Status: Chronic Assessment and Plan: Continue with home inhalers Chronic No indication of exacerbation or oxygen need (9) Generalized weakness: Code(s): R53.1 - Weakness Status: Acute Assessment and Plan: Unsure about length of time Wide gait witnessed with walking Walker is needed for ambulation Could be related to sodium Could be related to general deconditioning MRI of the brain no notable stroke DS: Summary Hospital Course Hospital Course: Patient is 72-year-old male with a past medical history of gout, iron deficiency anemia, COPD who presented to the ED with complaints of lower extremity edema that had been get worse over the last 4 days. Patient recently had a fall at home as well and had noted abrasions to bilateral arms and bruising on the legs as well. Chest x-ray was read as cardiomegaly with mild edema. Venous Dopplers were performed on 10/04 which were negative. Patient was initially started on antibiotics for cellulitis however has been discontinued with no cellulitis present. Sodium was 125 upon arrival. Patient was given 1 dose of Lasix however sodium came up to 126. FENa score did show pre renal indicating either fluid deficit or fluid overload. After the does of Lasix and the sodium did not return or get better fluids were initiated at that time. Currently sodium is 130. Fluid restriction was ordered. Currently patient is stable for discharge in would like to go h
--- NOTE | 2022-10-11 10:30 | P.DS_ITS ---
DS: Admitting Diagnosis Discharge Date 10/11/22 1030 Admitting Diagnosis lower extremity edema, hyponatremia, fall DS: Discharge Diagnosis Discharge Diagnosis (1) Lower extremity edema: Code(s): R60.0 - Localized edema Status: Acute Assessment and Plan: * Venous Dopplers were negative. * Start lasix BID, stopped with sodium falling * Echo EF of 60-65% with normal diastolic function * Consider caro hose if indicated * Trend edema (2) Cellulitis: Code(s): L03.90 - Cellulitis, unspecified Status: Acute Assessment and Plan: * Presented with lower extremity edema that has been worsening over the last 4 days * Venous Doppler was read as no lower extremity deep vein thrombosis. * ankle brachial index on 10/04/2022 which was read as normal bilateral ankle brachial indices * WBC stable at 9.6 * DC all antibiotics at this time * Trend labs * Trend symptoms and appearance * Seems to be either resolved or just a case of lower extremity edema (3) Hyponatremia: Code(s): E87.1 - Hypo-osmolality and hyponatremia Status: Acute Assessment and Plan: * Na at admission 125, currently 130 * BNP slightly elevated 852 * FENa score per estimated urine creatinine at 0.2% indicated * Started patient on fluids, sodium came up to 130 * Trend sodium * Consider asking nephrology for help if continues to worsen (4) Gout: Code(s): M10.9 - Gout, unspecified Status: Acute Assessment and Plan: * Continue with allopurinol * Chronic no acute concerns (5) Diet-controlled diabetes mellitus: Code(s): E11.9 - Type 2 diabetes mellitus without complications Status: Acute Assessment and Plan: * Current glucose 99 * Accu-Cheks AC and HS * A1c 5.7 * Hypoglycemic protocol * Trend glucose * add sliding scale if indicated (6) Hyperlipidemia: Code(s): E78.5 - Hyperlipidemia, unspecified Status: Chronic Assessment and Plan: * Continue with atorvastatin * Chronic and stable (7) Hypothyroidism: Code(s): E03.9 - Hypothyroidism, unspecified Status: Chronic Assessment and Plan: * Continue with Synthroid * TSH 5.550, T3 1.25, T4 1.39 * Adjust medications as indicated (8) COPD (chronic obstructive pulmonary disease): Code(s): J44.9 - Chronic obstructive pulmonary disease, unspecified Status: Chronic Assessment and Plan: * Continue with home inhalers * Chronic * No indication of exacerbation or oxygen need (9) Generalized weakness: Code(s): R53.1 - Weakness Status: Acute Assessment and Plan: * Unsure about length of time * Wide gait witnessed with walking * Walker is needed for ambulation * Could be related to sodium * Could be related to general deconditioning * MRI of the brain no notable stroke DS: Summary Hospital Course Hospital Course: Patient is 72-year-old male with a past medical history of gout, iron deficiency anemia, COPD who presented to the ED with complaints of lower extremity edema that had been get worse over the last 4 days. Patient recently had a
[2022-10-11] MEDS: ACETAMINOPHEN 500 MG TABLET 1000 MG PO (11:17)
[2022-10-11 12:00] VITALS: PULSE 80
--- NOTE | 2022-10-11 12:30 | PC.NURSE ---
On 10/11/22, the student, [Renato Garsia], provided care and completed [facility] documentation on this patient. I have reviewed the student's documentation and agree with the findings.
[2022-10-11 12:38] LABS: Glucose Point of Care 98 mg/dl (65-105)
--- NOTE | 2022-10-11 12:45 | WPDNEURCNPN ---
Assessment and Plan Assessment and plan (1) Gait instability: Code(s): R26.81 - Unsteadiness on feet Status: Acute (2) Hyponatremia: Code(s): E87.1 - Hypo-osmolality and hyponatremia Status: Acute (3) COPD exacerbation: Code(s): J44.1 - Chronic obstructive pulmonary disease with (acute) exacerbation Status: Acute Plan Александр Villanueva is a 72 year old male with a history of COPD, CHF, prediabetes, hyperlipidemia, hypothyroidism, hypertension who presented due to edema in the lower extremities and shortness of breath. He has had gait instability for the past three months in addition to the shortness of breath. He does have somewhat of a shuffling gait, although no other significant findings of Parkinson's on exam. Strength is appropriate for age. Could be deconditioning due to respiratory issues. We discussed the importance of continuing physical therapy. I do not think he needs a trial of Sinemet just yet. Will re-evaluate in about three months in outpatient follow-up to see if there had been any improvement or progression in symptoms. Patient and were agreeable to this plan. Consult date: 10/11/22 Reason for consult: Gait instability HPI: Александр Villanueva is a 72 year old male with a history of COPD, CHF, prediabetes, hyperlipidemia, hypothyroidism, hypertension who presented due to edema in the lower extremities and shortness of breath. Per , patient was walking completely independently and normally until three months ago. Around that time, he started complaining of pain in the back of his legs and also noted to have shuffling gait. He did physical therapy for about three weeks without significant improvement. He did have shortness of breath at the time. He had testing included CHANTEL testing and 6 minute walk test, both of which were reportedly unremarkable per . Although from chart review there is evidence of mild peripheral artery disease. Last week, patient started developing edema in his feet and noted worsening balance issues. At this point, he needed a walker to get around and could not ambulate independently. He presented to [facility] where he was noted to have hyponatremia (125). His CT head was negative and his MRI brain showed only age related changes. Patient denies any history of falls other than falling just prior to admission. He did not have any balance issues prior to three months ago. He denies any tremors, rigidity, or slowness of the extremities. He does have a poor sense of smell, but reports chronic sinus issues. He denies any REM sleep disorders. No concerns for memory loss. Patient reports that his paternal grandfather had Parkinson's disease. Review of Systems Constitutional: Constitutional: Reports no additional constitutional complaints Eyes: Eyes: Reports no additional eye complaints ENT: Comments: hearing loss Cardiovascular: Cardiovascular: Reports no additional cardiovascular complaints Respiratory: Respiratory: Reports dyspnea Gastrointestinal: Gastrointestinal: Reports constipation Genitourinary: Genitourinary: Reports no additional male genitourinary complaints Musculoskeletal: Musculoskeletal: Reports neck pain Integumentary/Breasts: Skin/Breast: Reports wounds Neurologic: Reports as per HPI Psychiatric: Psychiatric: Reports no additional psychiatric complaints PMFSH Past Medical History Medical History 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 No problems since then. Esophageal cancer GERD (gastroesophageal reflux disease) Gout High cholesterol Hyperlipidemia Hypertension Hypothyroidism ERMELINDA (iron deficiency anemia) Pneumonia Rotator cuff tear arthropathy
[2022-10-11 14:00] VITALS: BP 120/60; PULSE 84; RESP 16; TEMP 36.4; O2SAT 94
[2022-10-11 22:09] LABS: Osmolality, Urine 461 mOsm/kg (50-1200)
== END 2022-10-11 15:59 | disposition home or self-care (01) | DRG 603 ==
LOC: ANHED 08:40 → ANH2MED 13:16
PROVIDERS: Internal Medicine; Nurse Practitioner; Admitting Provider Family Medicine; Emergency Provider Emergency Medicine; PCP Physician Assistant Medical; Visit Provider Nurse Practitioner
DX: L03.113 Cellulitis of right upper limb (principal); E87.1 Hypo-osmolality and hyponatremia; R60.0 Localized edema; I25.10 Atherosclerotic heart disease of native coronary artery without angina pectoris; I10 Essential (primary) hypertension; J44.9 Chronic obstructive pulmonary disease, unspecified; E11.9 Type 2 diabetes mellitus without complications; E78.00 Pure hypercholesterolemia, unspecified; E78.5 Hyperlipidemia, unspecified; E03.9 Hypothyroidism, unspecified; D50.9 Iron deficiency anemia, unspecified; K21.9 Gastro-esophageal reflux disease without esophagitis; K25.9 Gastric ulcer, unspecified as acute or chronic, without hemorrhage or perforation; M17.9 Osteoarthritis of knee, unspecified; R26.81 Unsteadiness on feet; Z96.653 Presence of artificial knee joint, bilateral; Z85.01 Personal history of malignant neoplasm of esophagus; Z79.82 Long term (current) use of aspirin; Z86.73 Personal history of transient ischemic attack (TIA), and cerebral infarction without residual deficits; Z87.891 Personal history of nicotine dependence
CPT/HCPCS: 36415; 70450; 70551; 71045; 80048; 80053; 82565; 82570; 82948; 83036; 83605; 83735; 83880; 83935; 84295; 84300; 84439; 84443; 84480; 84484; 85025; 85610; 85730; 87040; 93005; 93306; 93970; 94640; 96365; 97161; 97165; 99285; A9270; J0690; J0692; J1940; J7030

== ENCOUNTER 2022-10-15 13:09 | Observation (INO) | payer MEDICARE, SELFPAY ==
[2022-10-15] VITALS (34 sets, daily range): BP systolic 115–149; BP diastolic 69–90; PULSE 82–100; RESP 12–21; TEMP 36.6; O2SAT 91–100; BMI 10.0; BMI 26.1
--- NOTE | ~2022-10-15 | XR_ITS ---
XR chest 1V portable 10/18/2022 13:35 Indication: Shortness of breath Procedure: AP portable chest Comparison: Comparison to multiple prior studies sequentially, with oldest reviewed study dated 12/26. Findings: Moderate cardiomegaly. Bibasilar airspace disease. Small left pleural effusion. No pneumoth orax. Mild interstitial edema. Impression: 1: Cardiomegaly with mild interstitial edema. 2: Bibasilar airspace disease may represent atelectasis or pneumonia. Reviewed, dictated and finalized at location A. Impression: 1: Cardiomegaly with mild interstitial edema. 2: Bibasilar airspace disease may represent atelectasis or pneumonia.
[2022-10-15 14:52] LABS: Basophils Absolute Auto 0.1 K/mm3 (0.0-0.1); Eosinophils Absolute Auto 0.2 K/mm3 (0-0.3); Eosinophils Percent Auto 2.3 % (0-4.4); Hematocrit 42.6 % (42.0-52.0); Hemoglobin 14.6 g/dL (14.0-18.0); Immature Granulocyte Absolute 0.05 K/mm3 (0.00-0.031); Immature Granulocyte Percent A 0.5 % (0-0.5); Lymphocytes Absolute Auto 1.36 K/mm3 (0.9-3.2); Mean Corpuscular HGB Conc 34.3 g/dl (32-36); Mean Corpuscular Hemoglobin 31.7 pg (26-34); Mean Corpuscular Volume 92.6 fl (80-100); Mean Platelet Volume 9.7 fl (7.4-10.4); Monocytes Absolute Auto 1.3 K/mm3 (0.1-0.6); Neutrophils Absolute Auto 6.7 K/mm3 (1.3-6.7); Neutrophils Percent Auto 69.2 % (45.5-73.1); Platelet Count Result 305 k/mm3 (150-375); Red Cell Distribution Width 14.3 % (11.5-14.5); White Blood Count 9.7 K/mm3 (4.5-10.0)
[2022-10-15 15:02] LABS: Anion Gap 8 mmol/L (8-16); Blood Urea Nitrogen 12 mg/dL (9-20); Calcium 8.8 mg/dL (8.4-10.2); Carbon Dioxide 28 mmol/L (22-30); Chloride 93 mmol/L (98-107); Estimated CRCL calculation 57 ml/min; Estimated Glomerular Filt Rate > 60; Glucose 100 mg/dL (65-110); Potassium 4.2 mmol/L (3.4-5.0); Sodium 129 mmol/L (137-145)
--- NOTE | 2022-10-15 17:40 | ED.GENADULT ---
HPI - General Adult General Chief complaint: Extremity Problem,Nontraumatic Stated complaint: swollen feet Time Seen by Provider: 10/15/22 13:14 History of Present Illness HPI narrative: Patient is a 72-year-old male who presents ER for evaluation of edema, hyponatremia, and decreased ability to ambulate. feels she cannot take care of him at home. Home health was out today recommend she bring him back to the ER should she need more care. Patient was admitted previously to this hospital and was treated for hyponatremia and evaluated for possible parkinsonism as he has been having a shuffling gait. Patient also has a flat affect and has had memory difficulty according . Currently oriented x2 but for nurse she is oriented x3. He thinks it is August 2022, but he originally told me it was 1922. Patient has not had a fall today. No new fevers or chills or sweats. Patient is reportedly ambulatory but has been elevating his legs at home. He has not been wearing compression wraps. Related Data Home Medications Medication Instructions Recorded Confirmed levothyroxine 75 mcg tablet 75 mcg PO DAILY 05/07/19 10/08/22 (Synthroid) pantoprazole 20 mg tablet,delayed 20 mg PO BID 05/07/19 10/08/22 release (Protonix) ascorbic acid (vitamin C) 500 mg 500 mg PO DAILY 10/20/20 10/08/22 capsule ferrous sulfate 325 mg (65 mg 325 mg PO DAILY 10/20/20 10/08/22 iron) tablet (iron) cyanocobalamin (vitamin B-12) 1,000 mcg PO DAILY 12/27/20 10/08/22 1,000 mcg tablet cholecalciferol (vitamin D3) 25 25 mcg PO DAILY 04/27/21 10/08/22 mcg (1,000 unit) capsule pregabalin 75 mg capsule (Lyrica) 75 mg PO BID 11/03/21 10/08/22 atorvastatin 40 mg tablet 40 mg PO DAILY 02/23/22 10/08/22 omega-3 fatty acids 1,000 mg 1,000 mg PO BID 02/23/22 10/08/22 capsule (Fish Oil Concentrate) aspirin 81 mg tablet 81 mg PO DAILY 05/15/22 10/08/22 magnesium oxide 500 mg tablet 500 mg PO DAILY 07/12/22 10/08/22 montelukast 10 mg tablet 10 mg PO QHS PRN Allergy Symptoms 10/08/22 10/08/22 (Singulair) Allergies Allergy/AdvReac Type Severity Reaction Status Date / Time cetirizine [From Zyrtec-D] AdvReac Intermediate increased Verified 10/08/22 13:36 stomach acid pseudoephedrine AdvReac Intermediate increased Verified 10/08/22 13:36 [From Zyrtec-D] stomach acid venlafaxine [From Effexor] AdvReac Intermediate Diarrhea Verified 10/08/22 13:36 tamsulosin [From Flomax] AdvReac Unknown Dizziness Verified 10/08/22 13:36 Review of Systems Review of Systems: ROS unobtainable: Yes unobtainable due to mental status PMFSH Past Medical History Medical History 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 No problems since then. Esophageal cancer GERD (gastroesophageal reflux disease) Gout High cholesterol Hyperlipidemia Hypertension Hypothyroidism ERMELINDA (iron deficiency anemia) Pneumonia Rotator cuff tear arthropathy Stomach ulcer TIA (transient ischemic attack) URI (upper respiratory infection) Surgical History Surgical History H/O esophagogastroduodenoscopy H/O foot surgery H/O hernia repair H/O repair of rotator cuff History of colonoscopy History of esophagectomy 1999; had 14 years of follow up, no recurrence History of reverse total replacement of shoulder joint Status post left partial knee replacement 2012 Status post right partial knee replacement 11/09/2020 Family History Family History Mother Family history of cardiovascular disease Father Family history of cardiovascular disease Sibling Family history of cardiovascular disease Si
--- NOTE | 2022-10-15 20:28 | ADMGEN ---
This patient, Александр Villanueva, was admitted to [facility] Room 301-01. Patient/family oriented to hospital policies and general routines including ID bracelet, bed and alarms, visiting hours, pain management, procedures, bathroom and other care routines, personal items, smoking policy, room service/diet, and visiting hours. Information on how to activate the Rapid Response Team has been discussed. Patient/Family are encouraged to report perceived risks to care and to ask questions if they do not understand what they are told or what they should do.
--- NOTE | 2022-10-15 21:07 | PC.NURSE ---
Patient A&Ox2 upon admission, therefore, unable to provide admission information and past medical history. This RN called patients spouse, Tara Villanueva ([phone]), and left voicemail. Will complete admission when spouse returns call.
--- NOTE | 2022-10-15 21:11 | PM.IMHP ---
H&P: HPI History of Present Illness Date/Time: 10/15/22 21:11 Chief Complaint: Swollen feet Narrative: This is a 72-year-old male patient who came to the emergency room to be evaluated for weakness and debility. The patient was just discharged from this facility on 10/11/2022. I had admitted the patient on 10/08/2022. The swelling in his legs have greatly decreased since I admitted him last time. The patient has been on Lasix b.i.d. and his EF is 60-65% with a normal diastolic function. The patient continues to have generalized weakness. This is related to general deconditioning. He recently had an MRI of the brain shows no notable stroke. His sodium is 129 and his baseline is anywhere from 125-132. The patient is on diuretics. The brought the patient back to the hospital because she cannot take care of him at home. Home health came to the house today recommended that the patient be brought back to the emergency room because more care is required then the patient can give. The patient was evaluated by Neurology for possible parkinsonism however that was ruled out by Neurology. The patient has a shuffling gait. The patient also has poor memory. The patient thought this was August of 2022 but initially told ER doctor that it was 1922. Has no fever chills. He has not fallen today. The patient is currently not wearing any compression stockings. The patient is being admitted to observation status on the service of 10/15/2022. Review of Systems Review of Systems: All systems reviewed & are unremarkable except as noted in HPI and below Constitutional: Constitutional: Reports as per HPI and Reports no additional constitutional complaints Eyes: Eyes: Reports as per HPI and Reports no additional eye complaints ENT: Reports system reviewed and no additional complaints, except as documented and Reports Normal hearing present Cardiovascular: Cardiovascular: Reports no additional cardiovascular complaints Respiratory: Respiratory: Reports no additional respiratory complaints and Reports no additional respiratory complaints Gastrointestinal: Gastrointestinal: Reports as per HPI and Reports no additional gastrointestinal complaints Musculoskeletal: Musculoskeletal: Reports no additional musculoskeletal complaints Integumentary/Breasts: Skin/Breast: Reports system reviewed and no additional complaints, except as docu and Reports as per HPI Neurologic: Reports system reviewed and no additional complaints, except as documented, Reports as per HPI and Reports Normal hearing present Psychiatric: Psychiatric: Reports no additional psychiatric complaints and Reports as per HPI Endocrine: Endocrine: Reports no additional endocrine complaints Hematologic/Lymphatic: Hematologic/Lymphatic: Reports no additional hematologic/lymphatic complaints Allergic/Immunologic: Allergic/Immunologic: Reports no additional allergic/immunologic complaints [facility] Past Medical History Medical History 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 No problems since then. Esophageal cancer GERD (gastroesophageal reflux disease) Gout High cholesterol Hyperlipidemia Hypertension Hypothyroidism ERMELINDA (iron deficiency anemia) Pneumonia Rotator cuff tear arthropathy Stomach ulcer TIA (transient ischemic attack) URI (upper respiratory infection) Surgical History Surgical History H/O esophagogastroduodenoscopy H/O foot surgery H/O hernia repair H/O repair of rotator cuff History of colonoscopy History of esophagectomy 1999; had 14 years of follow up, no recurrence History of reverse total replacement of shoulder joint Status p
[2022-10-16 06:00] VITALS: BP 142/59; PULSE 91; RESP 15; TEMP 36.8; O2SAT 97
[2022-10-16 06:02] LABS: Basophils Absolute Auto 0.1 K/mm3 (0.0-0.1); Basophils Percent Auto 1.4 % (0.2-1.2); Eosinophils Absolute Auto 0.3 K/mm3 (0-0.3); Eosinophils Percent Auto 3.2 % (0-4.4); Hematocrit 39.3 % (42.0-52.0); Hemoglobin 13.6 g/dL (14.0-18.0); Immature Granulocyte Absolute 0.04 K/mm3 (0.00-0.031); Immature Granulocyte Percent A 0.4 % (0-0.5); Lymphocytes Absolute Auto 1.45 K/mm3 (0.9-3.2); Lymphocytes Percent Auto 15.3 % (18.3-44.2); Mean Corpuscular HGB Conc 34.6 g/dl (32-36); Mean Corpuscular Hemoglobin 31.2 pg (26-34); Mean Corpuscular Volume 90.1 fl (80-100); Mean Platelet Volume 9.5 fl (7.4-10.4); Monocytes Percent Auto 10.9 % (2.6-8.5); Neutrophils Absolute Auto 6.5 K/mm3 (1.3-6.7); Neutrophils Percent Auto 68.8 % (45.5-73.1); Platelet Count Result 307 k/mm3 (150-375); Red Blood Count 4.36 M/mm3 (4.6-6.20); Red Cell Distribution Width 13.8 % (11.5-14.5); White Blood Count 9.5 K/mm3 (4.5-10.0)
[2022-10-16] MEDS: LEVOTHYROXINE SODIUM 75 MCG TABLET PO (06:07)
[2022-10-16 06:09] LABS: Lactic Acid Reflex 0.9 mmol/L (0.7-2.0)
[2022-10-16 06:10] LABS: Alanine Aminotransferase 36 U/L (6-50); Albumin Level 3.6 g/dL (3.5-5.1); Alkaline Phosphatase 137 U/L (38-126); Anion Gap 6 mmol/L (8-16); Aspartate Amino Transferase 39 U/L (17-59); Bilirubin,Total 1.5 mg/dL (0.2-1.3); Blood Urea Nitrogen 12 mg/dL (9-20); Calcium 8.5 mg/dL (8.4-10.2); Carbon Dioxide 24 mmol/L (22-30); Chloride 97 mmol/L (98-107); Estimated CRCL calculation 59 ml/min; Estimated Glomerular Filt Rate > 60; Glucose 86 mg/dL (65-110); Lactate Dehydrogenase 193 U/L (120-246); Magnesium 1.9 mg/dL (1.6-2.3); Potassium 3.9 mmol/L (3.4-5.0); Sodium 127 mmol/L (137-145)
[2022-10-16 08:00] VITALS: O2SAT 97
[2022-10-16] MEDS: UMECLIDINIUM/VILANTEROL 62.5-25 MCG ELLIPTA 1 PUFF INHALATION (08:19)
[2022-10-16] MEDS: allopurinoL 100 MG TABLET PO ×2 (08:20→17:19)
[2022-10-16] MEDS: OMEGA 3 POLYUNSAT FATTY ACIDS 1 GM CAP PO ×2 (08:20→17:19)
[2022-10-16] MEDS: CHOLECALCIFEROL 1,000 UNITS TABLET 1000 UNITS PO (08:20)
[2022-10-16] MEDS: CYANOCOBALAMIN 500 MCG TABLET PO (08:20)
[2022-10-16] MEDS: PANTOPRAZOLE SOD SESQUIHYDRATE 20 MG TAB PO ×2 (08:20→17:19)
[2022-10-16] MEDS: ASPIRIN 81 MG ENTERIC TABLET PO (08:20)
[2022-10-16] MEDS: ASCORBIC ACID 500 MG TABLET PO (08:20)
[2022-10-16] MEDS: FERROUS SULFATE 324 MG TABLET PO (08:20)
[2022-10-16] MEDS: MONTELUKAST SODIUM 10 MG TABLET PO (08:20)
[2022-10-16] MEDS: THIAMINE HCL 100 MG TABLET PO (08:20)
[2022-10-16] MEDS: MAGNESIUM OXIDE 400 MG TABLET PO (08:20)
[2022-10-16] MEDS: ATORVASTATIN 40 MG TABLET PO (08:20)
[2022-10-16] MEDS: PREGABALIN (*CRX) 75 MG CAPSULE PO ×2 (08:22→20:36)
[2022-10-16 09:39] LABS: NT Pro B Type Natriuretic Pept 228 pg/mL (19.9-100)
--- NOTE | 2022-10-16 10:00 | PM.IMPN ---
Progress Note: A&P Assessment and Plan (1) Physical debility: Code(s): R53.81 - Other malaise Status: Acute Assessment and Plan: PT OT evaluation which greatly be appreciated Care management for rehab place home health at home failed feels that the patient requires more help at home then she can provide for her . shuffling gait and Parkinson's was evaluated thiamine pending history of alcoholism quit in 1999 (2) Hyponatremia: Code(s): E87.1 - Hypo-osmolality and hyponatremia Status: Acute Assessment and Plan: Na at admission 129, currently 127 BNP slightly elevated 228 FENa score when urine labs come back Hold on fluid for now Start fluid restriction Trend sodium Nephrology consulted given the quick reoccurrence (3) Gait instability: Code(s): R26.81 - Unsteadiness on feet Status: Acute Assessment and Plan: PT OT evaluation greatly be appreciated Wanting rehab for strengthening and endurance (4) Gout: Code(s): M10.9 - Gout, unspecified Status: Acute Assessment and Plan: Continue with allopurinol Chronic and stable at this time (5) Hyperlipidemia: Code(s): E78.5 - Hyperlipidemia, unspecified Status: Chronic Assessment and Plan: Continue with Lipitor (6) Hypothyroidism: Code(s): E03.9 - Hypothyroidism, unspecified Status: Chronic Assessment and Plan: Continue levothyroxine TSH 4.970, T4 1.38 Increase to 87.5mcg Trend and redraw in 6 weeks Could be contributing to the frequent falls and weakness (7) GERD (gastroesophageal reflux disease): Code(s): K21.9 - Gastro-esophageal reflux disease without esophagitis Status: Acute Assessment and Plan: Continue with pantoprazole Time Spent With Patient Time: 51 minutes Time with patient: Greater than 35 minutes Subjective Date/time seen: 10/16/22 1000 Interval history: 10/16/22 1000 patient was lying in bed. Patient's was present. Patient's stated that his legs got really swollen again and he was unable to really get around in the house. She also stated that the patient was having hard time walking with a walker and stated that it was so slow that he would wet himself trying to just gets the bathroom. She was also concerned about the sodium and stated that he has been drinking about 2-2 and have pictures of water which is about a 1000 to 1500 mils per day. She stated that it is becoming too much for him to take care of at home. Consulted nephrology at this point. Will wait further instructions. 10/15/22? 21:11 This is a 72-year-old male patient who came to the emergency room to be evaluated for weakness and debility.? The patient was just discharged from this facility on 10/11/2022.? I had admitted the patient on 10/08/2022.? The swelling in his legs have greatly decreased since I admitted him last time.? The patient has been on Lasix b.i.d. and his EF is 60-65% with a normal diastolic function.? The patient continues to have generalized weakness.? This is related to general deconditioning.? He recently had an MRI of the brain shows no notable stroke.? His sodium is 129 and his baseline is anywhere from 125-132.? The patient is on diuretics.? The brought the patient back to the hospital because she cannot take care of him at home.? Home health came to the house today recommended that the patient be brought back to the emergency room because more care is required then the patient can give.? The patient was evaluated by Neurology for possible parkinsonism however that was ruled out by Neurology.? The patient has a shuffling gait.? The patient also has poor memory.? The patient thought this was August of 2022 but initially told ER doctor that it was 1922.? Has no fever chills.? He has
--- NOTE | 2022-10-16 10:00 | P.PNIM_ITS ---
Progress Note: A&P Assessment and Plan (1) Physical debility: Code(s): R53.81 - Other malaise Status: Acute Assessment and Plan: * PT OT evaluation which greatly be appreciated * Care management for rehab place * home health at home failed * feels that the patient requires more help at home then she can provide for her . * shuffling gait and Parkinson's was evaluated * thiamine pending * history of alcoholism quit in 1999 (2) Hyponatremia: Code(s): E87.1 - Hypo-osmolality and hyponatremia Status: Acute Assessment and Plan: * Na at admission 129, currently 127 * BNP slightly elevated 228 * FENa score when urine labs come back * Hold on fluid for now * Start fluid restriction * Trend sodium * Nephrology consulted given the quick reoccurrence (3) Gait instability: Code(s): R26.81 - Unsteadiness on feet Status: Acute Assessment and Plan: * PT OT evaluation greatly be appreciated * Wanting rehab for strengthening and endurance (4) Gout: Code(s): M10.9 - Gout, unspecified Status: Acute Assessment and Plan: * Continue with allopurinol * Chronic and stable at this time (5) Hyperlipidemia: Code(s): E78.5 - Hyperlipidemia, unspecified Status: Chronic Assessment and Plan: * Continue with Lipitor (6) Hypothyroidism: Code(s): E03.9 - Hypothyroidism, unspecified Status: Chronic Assessment and Plan: * Continue levothyroxine * TSH 4.970, T4 1.38 * Increase to 87.5mcg * Trend and redraw in 6 weeks * Could be contributing to the frequent falls and weakness (7) GERD (gastroesophageal reflux disease): Code(s): K21.9 - Gastro-esophageal reflux disease without esophagitis Status: Acute Assessment and Plan: * Continue with pantoprazole Time Spent With Patient Time: 51 minutes Time with patient: Greater than 35 minutes Subjective Date/time seen: 10/16/22 1000 Interval history: 10/16/22 1000 patient was lying in bed. Patient's was present. Patient's stated that his legs got really swollen again and he was unable to really get around in the house. She also stated that the patient was having hard time walking with a walker and stated that it was so slow that he would wet himself trying to just gets the bathroom. She was also concerned about the sodium and stated that he has been drinking about 2-2 and have pictures of water which is about a 1000 to 1500 mils per day. She stated that it is becoming too much for him to take care of at home. Consulted nephrology at this point. Will wait further instructions. 10/15/22? 21:11 This is a 72-year-old male patient who came to the emergency room to be evaluated for weakness and debility.? The patient was just discharged from this facility on 10/11/2022.? I had admitted the patient on 10/08/2022.? The swelling in his legs have greatly decreased since I admitted him last time.? The patient has been on Lasix b.i.d. and his EF is 60-65% with a normal diastolic function.? The patient continues to have generalized weakness.? This is related to general deconditioning.? He recently had an MRI of the brain shows no notable stroke.? His sodium is 129 and his baseline is anywhe
[2022-10-16 10:15] LABS: Free T4 Free Thyroxine Reflex 1.38 ng/dL (0.78-2.19)
--- NOTE | 2022-10-16 11:00 | PM.CNNEP ---
Assessment and Plan Assessment and plan (1) Hyponatremia: Code(s): E87.1 - Hypo-osmolality and hyponatremia Status: Acute Assessment and Plan: first noted on last hospitalization in early September 2022 improved with IVFs up to 132 by time of discharge (10/11/22) down to 129 on admission and down to 127 by AM labs risk factors for hyponatremia: thyroid disease COPD/lung disease distant hx of alcoholism excess free water intake PPI use follow up on urine studies and serum/urine osmolality check cortisol, SPEP, UPEP agree with trial of fluid restriction follow trend of repeat sodium levels (2) Generalized weakness: Code(s): R53.1 - Weakness Status: Acute Assessment and Plan: PT/OT as tolerated suspect will need placement as unable to care for him I will continue to follow the patient with you while he remains hospitalized and make further recommendations during his hospital course. Thank you for allowing me to participate in the care of this patient. History of Present Illness Reason for Consult Consult date: 10/16/22 Reason for consult: hyponatremia Chief Complaint Chief complaint: PHYSICAL THERAPY History of Present Illness Narrative: The patient is a 72-year-old male with a past medical history as outlined below who presented to [facility] Emergency room for further evaluation of generalized weakness and debility. The patient was just recently discharged from [facility] on 10/11/2022 after he was admitted for further evaluation of lower extremity edema. During that hospital stay, he was is 2 on diuretic therapy which were markedly improved his lower extremity edema. His echocardiogram demonstrated an EF of 60-65% with no significant findings. He was subsequently discharged home after improvement in his lower extremity edema. It should be noted though that during that hospital stay he was noted be hyponatremic and his sodium level actually improved with gentle IV fluid resuscitation. Unfortunately, his weakness seems to have persisted even after this recent hospitalization and his is finding it very difficult to take care of him at home. [facility] came to see the patient on the day of admission and recommended that he come back to the emergency room for further evaluation given this significant amount of care he requires as well as the inability of his to take care of him. In workup and evaluation emergency room demonstrated the patient be hemodynamically stable and in no acute distress. He denies any fevers, chills, nausea, vomiting, diarrhea, palpitations, dizziness, or falls. Routine blood test demonstrated some mild worsening of his hyponatremia at 129. millimoles per L but with no other acute electrolyte abnormalities. Given his overall deconditioned state and the likelihood that he will require placement, he was admitted the hospital for further evaluation and therapy. Renal consultation was requested due to his hyponatremia. As already mentioned above, the patient was 1st noted to have this issue/problem on his last hospitalization at [facility] earlier this month. However, his sodium level improved with IV fluids with a discharge sodium of 132. Upon further questioning to the patient and his , he reports that since his discharge, he has been drinking a couple of pitchers of water a day although I am unclear if it is because of thirst or some other issue. Other potential risk factors for hyponatremia include thyroid disease, proton pump inhibitor use (Protonix), diuretic use, and underlying lung disease/COPD. In spite of his hyponatremia, he does not appear to have any neurological sequelae although the ER did report that he was mildly confused on presentation. Currently, at the time my visit, he appears to be in no acute distress. His was at bedside and provides some of the history as above. Review of Syst
[2022-10-16 12:00] LABS: Creatinine Urine 94.7 mg/dL; Urea Random Urine 484 MG/DL
[2022-10-16 12:14] LABS: Sodium Urine Random 120 meq/L
[2022-10-16 14:00] VITALS: BP 157/86; PULSE 99; RESP 16; TEMP 35.9; O2SAT 97
[2022-10-16] MEDS: ACETAMINOPHEN 325 MG TABLET 650 MG PO (18:40)
[2022-10-16 20:00] VITALS: PULSE 99; RESP 16; O2SAT 97
[2022-10-16 20:59] LABS: Total Triiodothyronine (T3) 1.24 NG/ML (0.97-1.69)
[2022-10-16 21:55] VITALS: BP 152/88; PULSE 95; RESP 14; TEMP 37; O2SAT 93
[2022-10-17] MEDS: LEVOTHYROXINE SODIUM 88 MCG TABLET PO (05:46)
[2022-10-17 05:49] VITALS: BP 136/55; PULSE 55; RESP 14; TEMP 36.1; O2SAT 97
[2022-10-17 06:07] LABS: Basophils Absolute Auto 0.1 K/mm3 (0.0-0.1); Basophils Percent Auto 1.3 % (0.2-1.2); Eosinophils Absolute Auto 0.2 K/mm3 (0-0.3); Eosinophils Percent Auto 3.1 % (0-4.4); Hematocrit 39.4 % (42.0-52.0); Hemoglobin 13.3 g/dL (14.0-18.0); Immature Granulocyte Absolute 0.04 K/mm3 (0.00-0.031); Immature Granulocyte Percent A 0.5 % (0-0.5); Lymphocytes Absolute Auto 1.22 K/mm3 (0.9-3.2); Lymphocytes Percent Auto 15.7 % (18.3-44.2); Mean Corpuscular HGB Conc 33.8 g/dl (32-36); Mean Corpuscular Hemoglobin 31.1 pg (26-34); Mean Corpuscular Volume 92.3 fl (80-100); Mean Platelet Volume 9.6 fl (7.4-10.4); Monocytes Percent Auto 12.3 % (2.6-8.5); Neutrophils Absolute Auto 5.2 K/mm3 (1.3-6.7); Neutrophils Percent Auto 67.1 % (45.5-73.1); Platelet Count Result 286 k/mm3 (150-375); Red Blood Count 4.27 M/mm3 (4.6-6.20); White Blood Count 7.8 K/mm3 (4.5-10.0)
[2022-10-17 06:26] LABS: Alanine Aminotransferase 32 U/L (6-50); Albumin Level 3.5 g/dL (3.5-5.1); Alkaline Phosphatase 130 U/L (38-126); Anion Gap 4 mmol/L (8-16); Aspartate Amino Transferase 36 U/L (17-59); Bilirubin,Total 1.6 mg/dL (0.2-1.3); Blood Urea Nitrogen 11 mg/dL (9-20); Calcium 8.4 mg/dL (8.4-10.2); Carbon Dioxide 27 mmol/L (22-30); Chloride 96 mmol/L (98-107); Estimated CRCL calculation 59 ml/min; Estimated Glomerular Filt Rate > 60; Glucose 85 mg/dL (65-110); Magnesium 1.8 mg/dL (1.6-2.3); Potassium 3.9 mmol/L (3.4-5.0); Sodium 127 mmol/L (137-145)
[2022-10-17 06:55] LABS: Cortisol Random 0.33 ug/dL
[2022-10-17 07:24] LABS: Free T4 Free Thyroxine Reflex 1.53 ng/dL (0.78-2.19)
[2022-10-17] MEDS: UMECLIDINIUM/VILANTEROL 62.5-25 MCG ELLIPTA 1 PUFF INHALATION (07:46)
[2022-10-17 07:48] VITALS: O2SAT 97
[2022-10-17] MEDS: CYANOCOBALAMIN 500 MCG TABLET PO (08:20)
[2022-10-17] MEDS: THIAMINE HCL 100 MG TABLET PO (08:20)
[2022-10-17] MEDS: OMEGA 3 POLYUNSAT FATTY ACIDS 1 GM CAP PO ×2 (08:20→16:12)
[2022-10-17] MEDS: ATORVASTATIN 40 MG TABLET PO (08:20)
[2022-10-17] MEDS: SODIUM CHLORIDE 0.9% IV 1,000 ML 100 ML IV CONT ×2 (08:20→17:21)
[2022-10-17] MEDS: PANTOPRAZOLE SOD SESQUIHYDRATE 20 MG TAB PO ×2 (08:21→16:12)
[2022-10-17] MEDS: MAGNESIUM OXIDE 400 MG TABLET PO (08:21)
[2022-10-17] MEDS: CHOLECALCIFEROL 1,000 UNITS TABLET 1000 UNITS PO (08:21)
[2022-10-17] MEDS: ASCORBIC ACID 500 MG TABLET PO (08:21)
[2022-10-17] MEDS: allopurinoL 100 MG TABLET PO ×2 (08:21→16:12)
[2022-10-17] MEDS: PREGABALIN (*CRX) 75 MG CAPSULE PO ×2 (08:21→20:31)
[2022-10-17] MEDS: ASPIRIN 81 MG ENTERIC TABLET PO (08:21)
[2022-10-17] MEDS: FERROUS SULFATE 324 MG TABLET PO (08:21)
--- NOTE | 2022-10-17 09:00 | PM.IMPN ---
Progress Note: A&P Assessment and Plan (1) Physical debility: Code(s): R53.81 - Other malaise Status: Acute Assessment and Plan: PT OT evaluation which greatly be appreciated Care management for rehab place home health at home failed feels that the patient requires more help at home then she can provide for her . shuffling gait and Parkinson's was evaluated thiamine pending history of alcoholism quit in 1999 (2) Hyponatremia: Code(s): E87.1 - Hypo-osmolality and hyponatremia Status: Acute Assessment and Plan: Na at admission 129, currently 127, again today BNP slightly elevated 228 FENa score FENa 0.90% indicating pre renal Start NS at this time Continue fluid restriction Cortisol is 0.33 Trend sodium Nephrology consulted given the quick reoccurrence (3) Gait instability: Code(s): R26.81 - Unsteadiness on feet Status: Acute Assessment and Plan: PT OT evaluation greatly be appreciated Wanting rehab for strengthening and endurance (4) Gout: Code(s): M10.9 - Gout, unspecified Status: Acute Assessment and Plan: Continue with allopurinol Chronic and stable at this time (5) Hyperlipidemia: Code(s): E78.5 - Hyperlipidemia, unspecified Status: Chronic Assessment and Plan: Continue with Lipitor (6) Hypothyroidism: Code(s): E03.9 - Hypothyroidism, unspecified Status: Chronic Assessment and Plan: Continue levothyroxine TSH 4.020 T4 1.38 Increase to 87.5mcg Trend and redraw in 6 weeks Could be contributing to the frequent falls and weakness (7) GERD (gastroesophageal reflux disease): Code(s): K21.9 - Gastro-esophageal reflux disease without esophagitis Status: Acute Assessment and Plan: Continue with pantoprazole Time Spent With Patient Time: 45 minutes Time with patient: Greater than 35 minutes Subjective Date/time seen: 10/17/22 0900 Interval history: 10/17/22 09 Patient is lying in bed. Patient states that he is doing pretty okay. He denies any current chest pain, shortness a breath, nausea, vomiting, diarrhea constipation. He has not gotten up much however will put him in the chair today. is also present spoke to her about starting fluids as his sodium did not change. 10/16/22 1000 patient was lying in bed. Patient's was present. Patient's stated that his legs got really swollen again and he was unable to really get around in the house. She also stated that the patient was having hard time walking with a walker and stated that it was so slow that he would wet himself trying to just gets the bathroom. She was also concerned about the sodium and stated that he has been drinking about 2-2 and have pictures of water which is about a 1000 to 1500 mils per day. She stated that it is becoming too much for him to take care of at home. Consulted nephrology at this point. Will wait further instructions. 10/15/22? 21:11 This is a 72-year-old male patient who came to the emergency room to be evaluated for weakness and debility.? The patient was just discharged from this facility on 10/11/2022.? I had admitted the patient on 10/08/2022.? The swelling in his legs have greatly decreased since I admitted him last time.? The patient has been on Lasix b.i.d. and his EF is 60-65% with a normal diastolic function.? The patient continues to have generalized weakness.? This is related to general deconditioning.? He recently had an MRI of the brain shows no notable stroke.? His sodium is 129 and his baseline is anywhere from 125-132.? The patient is on diuretics.? The brought the patient back to the hospital because she cannot take care of him at home.? Home health came to the house today recommended that the patient be broug
--- NOTE | 2022-10-17 09:00 | P.PNIM_ITS ---
Progress Note: A&P Assessment and Plan (1) Physical debility: Code(s): R53.81 - Other malaise Status: Acute Assessment and Plan: * PT OT evaluation which greatly be appreciated * Care management for rehab place * home health at home failed * feels that the patient requires more help at home then she can provide for her . * shuffling gait and Parkinson's was evaluated * thiamine pending * history of alcoholism quit in 1999 (2) Hyponatremia: Code(s): E87.1 - Hypo-osmolality and hyponatremia Status: Acute Assessment and Plan: * Na at admission 129, currently 127, again today * BNP slightly elevated 228 * FENa score FENa 0.90% indicating pre renal * Start NS at this time * Continue fluid restriction * Cortisol is 0.33 * Trend sodium * Nephrology consulted given the quick reoccurrence (3) Gait instability: Code(s): R26.81 - Unsteadiness on feet Status: Acute Assessment and Plan: * PT OT evaluation greatly be appreciated * Wanting rehab for strengthening and endurance (4) Gout: Code(s): M10.9 - Gout, unspecified Status: Acute Assessment and Plan: * Continue with allopurinol * Chronic and stable at this time (5) Hyperlipidemia: Code(s): E78.5 - Hyperlipidemia, unspecified Status: Chronic Assessment and Plan: * Continue with Lipitor (6) Hypothyroidism: Code(s): E03.9 - Hypothyroidism, unspecified Status: Chronic Assessment and Plan: * Continue levothyroxine * TSH 4.020 T4 1.38 * Increase to 87.5mcg * Trend and redraw in 6 weeks * Could be contributing to the frequent falls and weakness (7) GERD (gastroesophageal reflux disease): Code(s): K21.9 - Gastro-esophageal reflux disease without esophagitis Status: Acute Assessment and Plan: * Continue with pantoprazole Time Spent With Patient Time: 45 minutes Time with patient: Greater than 35 minutes Subjective Date/time seen: 10/17/22899 Interval history: 10/17/22899 Patient is lying in bed. Patient states that he is doing pretty okay. He denies any current chest pain, shortness a breath, nausea, vomiting, diarrhea constipation. He has not gotten up much however will put him in the chair today. is also present spoke to her about starting fluids as his sodium did not change. 10/16/22 1000 patient was lying in bed. Patient's was present. Patient's stated that his legs got really swollen again and he was unable to really get around in the house. She also stated that the patient was having hard time walking with a walker and stated that it was so slow that he would wet himself trying to just gets the bathroom. She was also concerned about the sodium and stated that he has been drinking about 2-2 and have pictures of water which is about a 1000 to 1500 mils per day. She stated that it is becoming too much for him to take care of at home. Consulted nephrology at this point. Will wait further instructions. 10/15/22? 21:11 This is a 72-year-old male patient who came to the emergency room to be evaluated for weakness and debility.? The patient was just discharged from this facility on 10/11/2022.? I had admitted t
--- NOTE | 2022-10-17 12:27 | P.PNNP_ITS ---
Progress Note: A&P Assessment and Plan (1) Hyponatremia: Code(s): E87.1 - Hypo-osmolality and hyponatremia Status: Acute Assessment and Plan: * stable * first noted on last hospitalization in early September 2022 * improved with IVFs * up to 132 by time of discharge (10/11/22) * down to 129 on admission and down to 127 (on 10/16/22) * risk factors for hyponatremia: * thyroid disease * COPD/lung disease * distant hx of alcoholism * excess free water intake * PPI use * evaluation to date noted * TSH okay * cortisol quite low - check cosyntropin stimulation test * urine electrolytes non prerenal (done on 10/16/22) * follow-up on SPEP/UPEP and serum/urine osmolality * on fluid restriction * noted trial of normal saline IVFs today * follow trend of repeat sodium levels (2) Generalized weakness: Code(s): R53.1 - Weakness Status: Acute Assessment and Plan: * PT/OT as tolerated * suspect will need placement as unable to care for him Will continue to follow. Subjective Date/time seen: 10/17/22 12:27 No apparent distress at the time of my visit; no acute issues or problems overni ght or earlier this AM; sodium stable but no improvement at this time; no other complalints voiced. Exam Narrative: General: WD/WN male in NAD Heart: normal S1 and S2; no rub Lungs: clear to auscultation Abdomen: soft, nontender, nondistended, positive bowel sounds Extremities: no cyanosis or clubbing; 1+ edema Skin: warm and dry Objective Data Vital Signs Vital Signs: Vital Signs Temp Pulse Resp BP Pulse Ox O2 Del Method 10/17/22 07:48 97 Room Air 10/17/22 05:49 96.9 F L 55 L 14 136/55 L 97 10/16/22 21:55 98.6 F 95 14 152/88 H 93 10/16/22 20:00 99 16 97 Room Air 10/16/22 14:00 96.7 F L 99 16 157/86 H 97 Intake/Output Intake/Output: Intake & Output 10/14/22 10/15/22 10/16/22 10/17/22 23:59 23:59 23:59 23:59 Intake Total 1250 620 Output Total 250 Balance 1250 370 Meds/Results Medications: Active Medications Generic Name Dose Route Start Last Admin Trade Name Freq PRN Reason Stop Dose Admin Acetaminophen 650 mg 10/15/22 17:54 10/16/22 18:40 Acetaminophen 325 Mg Tablet PO 650 mg Q4H PRN Administration Mild Pain (1-3) or Fever Allopurinol 100 mg 10/16/22 08:00 10/17/22 08:21 Allopurinol 100 Mg Tablet PO 100 mg BIDWM [facility] Administration Ascorbic Acid 500 mg 10/16/22 09:00 10/17/22 08:21 Ascorbic Acid 500 Mg Tablet PO 500 mg DAILY [facility] Administration Aspirin 81 mg 10/16/22 09:00 10/17/22 08:21 Aspirin 81 Mg Enteric Tablet PO 81 mg QAM [facility] Administration Atorvastatin Calcium 40 mg 10/16/22 09:00 10/17/22 08:20 Atorvastatin 40 Mg Tablet PO 40 mg DAILY [facility] Administration Cyanocobalamin 500 mcg 10/16/22 09:00 10/17/22 08:20 Cyanocobalamin 500 Mcg Tablet PO 500 mcg DAILY [facility] Administration Ferrous Sulfate 324 mg 10/16/22 08:00 10/17/22 08:21 Ferrous Sulfate 324 Mg Tablet PO 324 mg DAILY@0800 [facility]
--- NOTE | 2022-10-17 12:27 | PM.PNNEP ---
Progress Note: A&P Assessment and Plan (1) Hyponatremia: Code(s): E87.1 - Hypo-osmolality and hyponatremia Status: Acute Assessment and Plan: stable first noted on last hospitalization in early September 2022 improved with IVFs up to 132 by time of discharge (10/11/22) down to 129 on admission and down to 127 (on 10/16/22) risk factors for hyponatremia: thyroid disease COPD/lung disease distant hx of alcoholism excess free water intake PPI use evaluation to date noted TSH okay cortisol quite low - check cosyntropin stimulation test urine electrolytes non prerenal (done on 10/16/22) follow-up on SPEP/UPEP and serum/urine osmolality on fluid restriction noted trial of normal saline IVFs today follow trend of repeat sodium levels (2) Generalized weakness: Code(s): R53.1 - Weakness Status: Acute Assessment and Plan: PT/OT as tolerated suspect will need placement as unable to care for him Will continue to follow. Subjective Date/time seen: 10/17/22 12:27 No apparent distress at the time of my visit; no acute issues or problems overnight or earlier this AM; sodium stable but no improvement at this time; no other complalints voiced. Exam Narrative: General: WD/WN male in NAD Heart: normal S1 and S2; no rub Lungs: clear to auscultation Abdomen: soft, nontender, nondistended, positive bowel sounds Extremities: no cyanosis or clubbing; 1+ edema Skin: warm and dry Objective Data Vital Signs Vital Signs: Vital Signs Temp Pulse Resp BP Pulse Ox O2 Del Method 10/17/22 07:48 97 Room Air 10/17/22 05:49 96.9 F L 55 L 14 136/55 L 97 10/16/22 21:55 98.6 F 95 14 152/88 H 93 10/16/22 20:00 99 16 97 Room Air 10/16/22 14:00 96.7 F L 99 16 157/86 H 97 Intake/Output Intake/Output: Intake & Output 10/14/22 10/15/22 10/16/22 10/17/22 23:59 23:59 23:59 23:59 Intake Total 1250 620 Output Total 250 Balance 1250 370 Meds/Results Medications: Active Medications Generic Name Dose Route Start Last Admin Trade Name Freq PRN Reason Stop Dose Admin Acetaminophen 650 mg 10/15/22 17:54 10/16/22 18:40 Acetaminophen 325 Mg Tablet PO 650 mg Q4H PRN Administration Mild Pain (1-3) or Fever Allopurinol 100 mg 10/16/22 08:00 10/17/22 08:21 Allopurinol 100 Mg Tablet PO 100 mg BIDWM [facility] Administration Ascorbic Acid 500 mg 10/16/22 09:00 10/17/22 08:21 Ascorbic Acid 500 Mg Tablet PO 500 mg DAILY [facility] Administration Aspirin 81 mg 10/16/22 09:00 10/17/22 08:21 Aspirin 81 Mg Enteric Tablet PO 81 mg QAM [facility] Administration Atorvastatin Calcium 40 mg 10/16/22 09:00 10/17/22 08:20 Atorvastatin 40 Mg Tablet PO 40 mg DAILY [facility] Administration Cyanocobalamin 500 mcg 10/16/22 09:00 10/17/22 08:20 Cyanocobalamin 500 Mcg Tablet PO 500 mcg DAILY [facility] Administration Ferrous Sulfate 324 mg 10/16/22 08:00 10/17/22 08:21 Ferrous Sulfate 324 Mg Tablet PO 324 mg DAILY@0800 [facility] Administration Fish Oil 1 gm 10/16/22 09:00 10/17/22 08:20 [place] 3 Polyunsat Fatty Acids 1 Gm Cap PO 1 gm BID [facility] Administration Sodium Chloride 1,000 mls @ 100 mls/hr 10/17/22 07:25 10/17/22 08:20 Normal Saline Iv IV CONT 100 mls/hr .Q10H [facility] Administration Levothyroxine Sodium 88 mcg 10/17/22 06:30 10/17/22 05:46 Levothyroxine Sodium 88 Mcg Tablet PO 88 mcg DAILY@0630 [facility] Administration Magnesium Oxide 400 mg 10/16/22 09:00 10/17/22 08:21 Magnesium Oxide 400 Mg Tablet PO 400 mg DAILY [facility] Administration Montelukast Sodium 10 mg 10/15/22 23:28 10/16/22 08:20 Montelukast Sodium 10 Mg Tablet PO 10 mg QHS PRN Administration Allergy Symptoms Ondansetron HCl 4 mg 10/15/22 17:54 Ondansetron Inj 4 Mg/2 Ml Vial IV PUSH Q4H PRN Nausea Pantoprazole Sodium 20 mg 10/16/22 09:00 10/17/22
[2022-10-17 14:00] VITALS: BP 134/73; PULSE 105; RESP 16; TEMP 36.1; O2SAT 95
[2022-10-17 20:00] VITALS: PULSE 95; RESP 18; O2SAT 93
[2022-10-17 21:19] VITALS: BP 139/81; PULSE 95; RESP 18; TEMP 36.9; O2SAT 93
[2022-10-18] MEDS: SODIUM CHLORIDE 0.9% IV 1,000 ML 100 ML IV CONT ×2 (04:52→15:52)
[2022-10-18 05:02] VITALS: BP 141/75; PULSE 82; RESP 17; TEMP 36.8; O2SAT 93
[2022-10-18] MEDS: LEVOTHYROXINE SODIUM 88 MCG TABLET PO (06:05)
[2022-10-18 06:20] LABS: Basophils Absolute Auto 0.1 K/mm3 (0.0-0.1); Basophils Percent Auto 1.2 % (0.2-1.2); Eosinophils Absolute Auto 0.3 K/mm3 (0-0.3); Eosinophils Percent Auto 3.2 % (0-4.4); Hematocrit 41.7 % (42.0-52.0); Hemoglobin 14.1 g/dL (14.0-18.0); Immature Granulocyte Absolute 0.05 K/mm3 (0.00-0.031); Immature Granulocyte Percent A 0.6 % (0-0.5); Lymphocytes Absolute Auto 1.39 K/mm3 (0.9-3.2); Lymphocytes Percent Auto 16.5 % (18.3-44.2); Mean Corpuscular HGB Conc 33.8 g/dl (32-36); Mean Corpuscular Hemoglobin 31.7 pg (26-34); Mean Corpuscular Volume 93.7 fl (80-100); Mean Platelet Volume 9.4 fl (7.4-10.4); Monocytes Absolute Auto 1.2 K/mm3 (0.1-0.6); Monocytes Percent Auto 13.9 % (2.6-8.5); Neutrophils Absolute Auto 5.4 K/mm3 (1.3-6.7); Neutrophils Percent Auto 64.6 % (45.5-73.1); Platelet Count Result 288 k/mm3 (150-375); Red Blood Count 4.45 M/mm3 (4.6-6.20); White Blood Count 8.4 K/mm3 (4.5-10.0)
[2022-10-18 06:33] LABS: Alanine Aminotransferase 30 U/L (6-50); Albumin Level 3.5 g/dL (3.5-5.1); Alkaline Phosphatase 128 U/L (38-126); Anion Gap 5 mmol/L (8-16); Aspartate Amino Transferase 33 U/L (17-59); Bilirubin,Total 1.2 mg/dL (0.2-1.3); Blood Urea Nitrogen 9 mg/dL (9-20); Calcium 8.1 mg/dL (8.4-10.2); Carbon Dioxide 23 mmol/L (22-30); Chloride 102 mmol/L (98-107); Estimated CRCL calculation 59 ml/min; Estimated Glomerular Filt Rate > 60; Glucose 92 mg/dL (65-110); Magnesium 1.9 mg/dL (1.6-2.3); Sodium 130 mmol/L (137-145)
[2022-10-18] MEDS: PANTOPRAZOLE SOD SESQUIHYDRATE 20 MG TAB PO ×2 (08:22→16:16)
[2022-10-18] MEDS: THIAMINE HCL 100 MG TABLET PO (08:22)
[2022-10-18] MEDS: allopurinoL 100 MG TABLET PO ×2 (08:23→16:16)
[2022-10-18] MEDS: OMEGA 3 POLYUNSAT FATTY ACIDS 1 GM CAP PO ×2 (08:23→16:16)
[2022-10-18] MEDS: ATORVASTATIN 40 MG TABLET PO (08:23)
[2022-10-18] MEDS: FERROUS SULFATE 324 MG TABLET PO (08:23)
[2022-10-18] MEDS: CYANOCOBALAMIN 500 MCG TABLET PO (08:23)
[2022-10-18] MEDS: PREGABALIN (*CRX) 75 MG CAPSULE PO ×2 (08:23→21:23)
[2022-10-18] MEDS: MAGNESIUM OXIDE 400 MG TABLET PO (08:23)
[2022-10-18] MEDS: ASCORBIC ACID 500 MG TABLET PO (08:23)
[2022-10-18] MEDS: CHOLECALCIFEROL 1,000 UNITS TABLET 1000 UNITS PO (08:23)
[2022-10-18] MEDS: ASPIRIN 81 MG ENTERIC TABLET PO (08:23)
[2022-10-18] MEDS: ENOXAPARIN 40 MG/0.4 ML SYRINGE SUB-Q (08:23)
--- NOTE | 2022-10-18 09:30 | PM.IMPN ---
Progress Note: A&P Assessment and Plan (1) Physical debility: Code(s): R53.81 - Other malaise Status: Acute Assessment and Plan: PT OT evaluation which greatly be appreciated Care management for rehab place home health at home failed feels that the patient requires more help at home then she can provide for her . shuffling gait and Parkinson's was evaluated thiamine pending history of alcoholism quit in 1999 (2) Hyponatremia: Code(s): E87.1 - Hypo-osmolality and hyponatremia Status: Acute Assessment and Plan: Na at admission 129, currently 130 BNP slightly elevated 228 FENa score FENa 0.90% indicating pre renal Continue NS at this time Continue fluid restriction Cortisol is 0.33, low could be the cause of the hyponatremia Trend sodium Nephrology consulted given the quick reoccurrence (3) Gait instability: Code(s): R26.81 - Unsteadiness on feet Status: Acute Assessment and Plan: PT OT evaluation greatly be appreciated Wanting rehab for strengthening and endurance (4) Gout: Code(s): M10.9 - Gout, unspecified Status: Acute Assessment and Plan: Continue with allopurinol Chronic and stable at this time (5) Hyperlipidemia: Code(s): E78.5 - Hyperlipidemia, unspecified Status: Chronic Assessment and Plan: Continue with Lipitor (6) Hypothyroidism: Code(s): E03.9 - Hypothyroidism, unspecified Status: Chronic Assessment and Plan: Continue levothyroxine TSH 4.020 T4 1.38 Increase to 87.5mcg Trend and redraw in 6 weeks Could be contributing to the frequent falls and weakness (7) GERD (gastroesophageal reflux disease): Code(s): K21.9 - Gastro-esophageal reflux disease without esophagitis Status: Acute Assessment and Plan: Continue with pantoprazole Plan Rhonchi noted per exam, chest x-ray ordered Time Spent With Patient Time: 48 minutes Time with patient: Greater than 35 minutes Subjective Date/time seen: 10/18/22929 Interval history: 10/18/22929 patient is lying in bed seems a bit tired today. He denies any current chest pain, shortness a breath, nausea, vomiting, diarrhea constipation. He did state that he was having some right toe pain. Pain was relieved 1 socks and Michael hose were removed. Swelling and edema are gone. Sodium is up to 130 today. is also present the room answered all questions and gave an update. 10/17/22 0900 Patient is lying in bed. Patient states that he is doing pretty okay. He denies any current chest pain, shortness a breath, nausea, vomiting, diarrhea constipation. He has not gotten up much however will put him in the chair today. is also present spoke to her about starting fluids as his sodium did not change. 10/16/22 1000 patient was lying in bed. Patient's was present. Patient's stated that his legs got really swollen again and he was unable to really get around in the house. She also stated that the patient was having hard time walking with a walker and stated that it was so slow that he would wet himself trying to just gets the bathroom. She was also concerned about the sodium and stated that he has been drinking about 2-2 and have pictures of water which is about a 1000 to 1500 mils per day. She stated that it is becoming too much for him to take care of at home. Consulted nephrology at this point. Will wait further instructions. 10/15/22? 21:11 This is a 72-year-old male patient who came to the emergency room to be evaluated for weakness and debility.? The patient was just discharged from this facility on 10/11/2022.? I had admitted the patient on 10/08/2022.? The swelling in his legs have greatly decreased since I admitted him last time.? The patient has been on
--- NOTE | 2022-10-18 09:30 | P.PNIM_ITS ---
Progress Note: A&P Assessment and Plan (1) Physical debility: Code(s): R53.81 - Other malaise Status: Acute Assessment and Plan: * PT OT evaluation which greatly be appreciated * Care management for rehab place * home health at home failed * feels that the patient requires more help at home then she can provide for her . * shuffling gait and Parkinson's was evaluated * thiamine pending * history of alcoholism quit in 1999 (2) Hyponatremia: Code(s): E87.1 - Hypo-osmolality and hyponatremia Status: Acute Assessment and Plan: * Na at admission 129, currently 130 * BNP slightly elevated 228 * FENa score FENa 0.90% indicating pre renal * Continue NS at this time * Continue fluid restriction * Cortisol is 0.33, low could be the cause of the hyponatremia * Trend sodium * Nephrology consulted given the quick reoccurrence (3) Gait instability: Code(s): R26.81 - Unsteadiness on feet Status: Acute Assessment and Plan: * PT OT evaluation greatly be appreciated * Wanting rehab for strengthening and endurance (4) Gout: Code(s): M10.9 - Gout, unspecified Status: Acute Assessment and Plan: * Continue with allopurinol * Chronic and stable at this time (5) Hyperlipidemia: Code(s): E78.5 - Hyperlipidemia, unspecified Status: Chronic Assessment and Plan: * Continue with Lipitor (6) Hypothyroidism: Code(s): E03.9 - Hypothyroidism, unspecified Status: Chronic Assessment and Plan: * Continue levothyroxine * TSH 4.020 T4 1.38 * Increase to 87.5mcg * Trend and redraw in 6 weeks * Could be contributing to the frequent falls and weakness (7) GERD (gastroesophageal reflux disease): Code(s): K21.9 - Gastro-esophageal reflux disease without esophagitis Status: Acute Assessment and Plan: * Continue with pantoprazole Plan Rhonchi noted per exam, chest x-ray ordered Time Spent With Patient Time: 48 minutes Time with patient: Greater than 35 minutes Subjective Date/time seen: 10/18/22929 Interval history: 10/18/22929 patient is lying in bed seems a bit tired today. He denies any current chest pain, shortness a breath, nausea, vomiting, diarrhea constipation. He did state that he was having some right toe pain. Pain was relieved 1 socks and Michael hose were removed. Swelling and edema are gone. Sodium is up to 130 today. is also present the room answered all questions and gave an update. 10/17/22 0900 Patient is lying in bed. Patient states that he is doing pretty okay. He denies any current chest pain, shortness a breath, nausea, vomiting, diarrhea constipation. He has not gotten up much however will put him in the chair today. is also present spoke to her about starting fluids as his sodium did not change. 10/16/22 1000 patient was lying in bed. Patient's was present. Patient's stated that his legs got really swollen again and he was unable to really get around in the house. She also stated that the patient was having hard time walking with a walker and stated that it was so slow that he would wet himself trying to just gets the bathroom. She was also concerned abo
[2022-10-18 10:10] VITALS: O2SAT 95
[2022-10-18] MEDS: UMECLIDINIUM/VILANTEROL 62.5-25 MCG ELLIPTA 1 PUFF INHALATION (10:10)
--- NOTE | 2022-10-18 12:22 | P.PNNP_ITS ---
Progress Note: A&P Assessment and Plan (1) Hyponatremia: Code(s): E87.1 - Hypo-osmolality and hyponatremia Status: Acute Assessment and Plan: * stable if not improving * first noted on last hospitalization in early September 2022 * improved with IVFs * up to 132 by time of discharge (10/11/22) * down to 129 on admission and down to 127 (on 10/16/22) * risk factors for hyponatremia: * thyroid disease * COPD/lung disease * distant hx of alcoholism * excess free water intake * PPI use * evaluation to date noted * TSH okay * cortisol quite low - check cosyntropin stimulation test * urine electrolytes non prerenal (done on 10/16/22) * follow-up on SPEP/UPEP and serum/urine osmolality * on fluid restriction * consider adding salt tabs once weaned off normal saline IVF * follow trend of repeat sodium levels (2) Generalized weakness: Code(s): R53.1 - Weakness Status: Acute Assessment and Plan: * PT/OT as tolerated * suspect will need placement as unable to care for him Will continue to follow. Subjective Date/time seen: 10/18/22 12:22 Sodium improving with current interventions (fluid restriction + normal saline IVF); no apparent distress voiced at this time; no issues/events overnight or earlier this morning. Exam Narrative: General: WD/WN male in NAD Heart: normal S1 and S2; no rub Lungs: clear to auscultation Abdomen: soft, nontender, nondistended, positive bowel sounds Extremities: no cyanosis or clubbing; 1+ edema Skin: warm and intact Objective Data Vital Signs Vital Signs: Vital Signs Temp Pulse Resp BP Pulse Ox O2 Del Method 10/18/22 10:10 95 Room Air 10/18/22 05:02 98.2 F 82 17 141/75 H 93 10/17/22 20:00 95 18 93 Room Air 10/17/22 21:19 98.4 F 95 18 139/81 93 10/17/22 14:00 97.0 F L 105 H 16 134/73 95 Intake/Output Intake/Output: Intake & Output 10/15/22 10/16/22 10/17/22 10/18/22 23:59 23:59 23:59 23:59 Intake Total 1250 2130 1120 Output Total 250 Balance 1250 1880 1120 Meds/Results Medications: Active Medications Generic Name Dose Route Start Last Admin Trade Name Freq PRN Reason Stop Dose Admin Acetaminophen 650 mg 10/15/22 17:54 10/16/22 18:40 Acetaminophen 325 Mg Tablet PO 650 mg Q4H PRN Administration Mild Pain (1-3) or Fever Allopurinol 100 mg 10/16/22 08:00 10/18/22 08:23 Allopurinol 100 Mg Tablet PO 100 mg BIDWM [facility] Administration Ascorbic Acid 500 mg 10/16/22 09:00 10/18/22 08:23 Ascorbic Acid 500 Mg Tablet PO 500 mg DAILY [facility] Administration Aspirin 81 mg 10/16/22 09:00 10/18/22 08:23 Aspirin 81 Mg Enteric Tablet PO 81 mg QAM [facility] Administration Atorvastatin Calcium 40 mg 10/16/22 09:00 10/18/22 08:23 Atorvastatin 40 Mg Tablet PO 40 mg DAILY [facility] Administration Cyanocobalamin 500 mcg 10/16/22 09:00 10/18/22 08:23 Cyanocobalamin 500 Mcg Tablet PO 500 mcg DAILY [facility] Administration Enoxaparin Sodium 40 mg 10/18/22 09:00 10/18/22 08:23 Enoxaparin 40 Mg/0.4 Ml Syr
--- NOTE | 2022-10-18 12:22 | PM.PNNEP ---
Progress Note: A&P Assessment and Plan (1) Hyponatremia: Code(s): E87.1 - Hypo-osmolality and hyponatremia Status: Acute Assessment and Plan: stable if not improving first noted on last hospitalization in early September 2022 improved with IVFs up to 132 by time of discharge (10/11/22) down to 129 on admission and down to 127 (on 10/16/22) risk factors for hyponatremia: thyroid disease COPD/lung disease distant hx of alcoholism excess free water intake PPI use evaluation to date noted TSH okay cortisol quite low - check cosyntropin stimulation test urine electrolytes non prerenal (done on 10/16/22) follow-up on SPEP/UPEP and serum/urine osmolality on fluid restriction consider adding salt tabs once weaned off normal saline IVF follow trend of repeat sodium levels (2) Generalized weakness: Code(s): R53.1 - Weakness Status: Acute Assessment and Plan: PT/OT as tolerated suspect will need placement as unable to care for him Will continue to follow. Subjective Date/time seen: 10/18/22 12:22 Sodium improving with current interventions (fluid restriction + normal saline IVF); no apparent distress voiced at this time; no issues/events overnight or earlier this morning. Exam Narrative: General: WD/WN male in NAD Heart: normal S1 and S2; no rub Lungs: clear to auscultation Abdomen: soft, nontender, nondistended, positive bowel sounds Extremities: no cyanosis or clubbing; 1+ edema Skin: warm and intact Objective Data Vital Signs Vital Signs: Vital Signs Temp Pulse Resp BP Pulse Ox O2 Del Method 10/18/22 10:10 95 Room Air 10/18/22 05:02 98.2 F 82 17 141/75 H 93 10/17/22 20:00 95 18 93 Room Air 10/17/22 21:19 98.4 F 95 18 139/81 93 10/17/22 14:00 97.0 F L 105 H 16 134/73 95 Intake/Output Intake/Output: Intake & Output 10/15/22 10/16/22 10/17/22 10/18/22 23:59 23:59 23:59 23:59 Intake Total 1250 2130 1120 Output Total 250 Balance 1250 1880 1120 Meds/Results Medications: Active Medications Generic Name Dose Route Start Last Admin Trade Name Freq PRN Reason Stop Dose Admin Acetaminophen 650 mg 10/15/22 17:54 10/16/22 18:40 Acetaminophen 325 Mg Tablet PO 650 mg Q4H PRN Administration Mild Pain (1-3) or Fever Allopurinol 100 mg 10/16/22 08:00 10/18/22 08:23 Allopurinol 100 Mg Tablet PO 100 mg BIDWM [facility] Administration Ascorbic Acid 500 mg 10/16/22 09:00 10/18/22 08:23 Ascorbic Acid 500 Mg Tablet PO 500 mg DAILY [facility] Administration Aspirin 81 mg 10/16/22 09:00 10/18/22 08:23 Aspirin 81 Mg Enteric Tablet PO 81 mg QAM [facility] Administration Atorvastatin Calcium 40 mg 10/16/22 09:00 10/18/22 08:23 Atorvastatin 40 Mg Tablet PO 40 mg DAILY [facility] Administration Cyanocobalamin 500 mcg 10/16/22 09:00 10/18/22 08:23 Cyanocobalamin 500 Mcg Tablet PO 500 mcg DAILY [facility] Administration Enoxaparin Sodium 40 mg 10/18/22 09:00 10/18/22 08:23 Enoxaparin 40 Mg/0.4 Ml Syringe SUB-Q 40 mg DAILY [facility] Administration Ferrous Sulfate 324 mg 10/16/22 08:00 10/18/22 08:23 Ferrous Sulfate 324 Mg Tablet PO 324 mg DAILY@0800 [facility] Administration Fish Oil 1 gm 10/16/22 09:00 10/18/22 08:23 [place] 3 Polyunsat Fatty Acids 1 Gm Cap PO 1 gm BID [facility] Administration Sodium Chloride 1,000 mls @ 100 mls/hr 10/17/22 07:25 10/18/22 04:52 Normal Saline Iv IV CONT 100 mls/hr .Q10H [facility] Administration Levothyroxine Sodium 88 mcg 10/17/22 06:30 10/18/22 06:05 Levothyroxine Sodium 88 Mcg Tablet PO 88 mcg DAILY@0630 [facility] Administration Magnesium Oxide 400 mg 10/16/22 09:00 10/18/22 08:23 Magnesium Oxide 400 Mg Tablet PO 400 mg DAILY [facility] Administration Montelukast Sodium 10 mg 10/15/22 23:28 10/16/22 08:20 Montelukast Sodium 10 Mg Tablet PO 10 mg QHS PRN Administration A
[2022-10-18 14:23] VITALS: BP 141/67; PULSE 85; RESP 18; TEMP 36.6; O2SAT 95
[2022-10-18] MEDS: ACETAMINOPHEN 325 MG TABLET 650 MG PO (17:42)
[2022-10-18 20:00] VITALS: PULSE 78; RESP 14; O2SAT 92
[2022-10-18 21:28] VITALS: BP 130/84; PULSE 78; RESP 14; TEMP 36.5; O2SAT 92
[2022-10-19] MEDS: SODIUM CHLORIDE 0.9% IV 1,000 ML 100 ML IV CONT (01:55)
[2022-10-19 04:45] VITALS: BP 136/79; PULSE 42; RESP 16; TEMP 36.6; O2SAT 96
[2022-10-19 04:49] LABS: Basophils Absolute Auto 0.1 K/mm3 (0.0-0.1); Basophils Percent Auto 1.4 % (0.2-1.2); Eosinophils Absolute Auto 0.4 K/mm3 (0-0.3); Eosinophils Percent Auto 5.5 % (0-4.4); Hematocrit 39.2 % (42.0-52.0); Hemoglobin 13.4 g/dL (14.0-18.0); Immature Granulocyte Absolute 0.03 K/mm3 (0.00-0.031); Immature Granulocyte Percent A 0.4 % (0-0.5); Lymphocytes Absolute Auto 1.31 K/mm3 (0.9-3.2); Mean Corpuscular HGB Conc 34.2 g/dl (32-36); Mean Corpuscular Hemoglobin 31.7 pg (26-34); Mean Corpuscular Volume 92.7 fl (80-100); Mean Platelet Volume 9.4 fl (7.4-10.4); Monocytes Percent Auto 14.6 % (2.6-8.5); Neutrophils Absolute Auto 4.1 K/mm3 (1.3-6.7); Neutrophils Percent Auto 59.1 % (45.5-73.1); Platelet Count Result 288 k/mm3 (150-375); Red Blood Count 4.23 M/mm3 (4.6-6.20); Red Cell Distribution Width 13.9 % (11.5-14.5); White Blood Count 6.9 K/mm3 (4.5-10.0)
[2022-10-19 05:01] LABS: Alanine Aminotransferase 30 U/L (6-50); Albumin Level 3.1 g/dL (3.5-5.1); Alkaline Phosphatase 114 U/L (38-126); Anion Gap 2 mmol/L (8-16); Aspartate Amino Transferase 33 U/L (17-59); Blood Urea Nitrogen 6 mg/dL (9-20); Calcium 7.8 mg/dL (8.4-10.2); Carbon Dioxide 24 mmol/L (22-30); Chloride 105 mmol/L (98-107); Estimated CRCL calculation 66 ml/min; Estimated Glomerular Filt Rate > 60; Glucose 93 mg/dL (65-110); Magnesium 1.7 mg/dL (1.6-2.3); Sodium 131 mmol/L (137-145)
[2022-10-19] MEDS: COSYNTROPIN 0.25 MG/ML VIAL IV PUSH (05:02)
[2022-10-19] MEDS: LEVOTHYROXINE SODIUM 88 MCG TABLET PO (05:04)
[2022-10-19 05:32] LABS: Cortisol Baseline 0.35 ug/dL
[2022-10-19 06:35] LABS: Cortisol 30 Minute 4.89 ug/dL
[2022-10-19 07:03] LABS: Cortisol 60 Minute 5.92 ug/dL
[2022-10-19] MEDS: ASCORBIC ACID 500 MG TABLET PO (08:53)
[2022-10-19] MEDS: OMEGA 3 POLYUNSAT FATTY ACIDS 1 GM CAP PO (08:53)
[2022-10-19] MEDS: CYANOCOBALAMIN 500 MCG TABLET PO (08:53)
[2022-10-19] MEDS: allopurinoL 100 MG TABLET PO (08:53)
[2022-10-19] MEDS: CHOLECALCIFEROL 1,000 UNITS TABLET 1000 UNITS PO (08:54)
[2022-10-19] MEDS: FERROUS SULFATE 324 MG TABLET PO (08:54)
[2022-10-19] MEDS: THIAMINE HCL 100 MG TABLET PO (08:54)
[2022-10-19] MEDS: MAGNESIUM OXIDE 400 MG TABLET PO (08:54)
[2022-10-19] MEDS: PREGABALIN (*CRX) 75 MG CAPSULE PO (08:54)
[2022-10-19] MEDS: PANTOPRAZOLE SOD SESQUIHYDRATE 20 MG TAB PO (08:54)
[2022-10-19] MEDS: ASPIRIN 81 MG ENTERIC TABLET PO (08:54)
[2022-10-19] MEDS: ATORVASTATIN 40 MG TABLET PO (08:54)
[2022-10-19] MEDS: ENOXAPARIN 40 MG/0.4 ML SYRINGE SUB-Q (08:55)
--- NOTE | 2022-10-19 09:15 | PM.DS ---
DS: Admitting Diagnosis Discharge Date 10/19/22 0915 Admitting Diagnosis Hyponatremia, adrenal insufficiency DS: Discharge Diagnosis Discharge Diagnosis (1) Physical debility: Code(s): R53.81 - Other malaise Status: Acute Assessment and Plan: PT OT evaluation which greatly be appreciated Care management for rehab place home health at home failed feels that the patient requires more help at home then she can provide for her . shuffling gait and Parkinson's was evaluated thiamine pending history of alcoholism quit in 1999 (2) Hyponatremia: Code(s): E87.1 - Hypo-osmolality and hyponatremia Status: Acute Assessment and Plan: Na at admission 129, currently 130 BNP slightly elevated 228 FENa score FENa 0.90% indicating pre renal Continue NS at this time Continue fluid restriction Cortisol is 0.33, low could be the cause of the hyponatremia Trend sodium Nephrology consulted given the quick reoccurrence (3) Gait instability: Code(s): R26.81 - Unsteadiness on feet Status: Acute Assessment and Plan: PT OT evaluation greatly be appreciated Wanting rehab for strengthening and endurance (4) Gout: Code(s): M10.9 - Gout, unspecified Status: Acute Assessment and Plan: Continue with allopurinol Chronic and stable at this time (5) Hyperlipidemia: Code(s): E78.5 - Hyperlipidemia, unspecified Status: Chronic Assessment and Plan: Continue with Lipitor (6) Hypothyroidism: Code(s): E03.9 - Hypothyroidism, unspecified Status: Chronic Assessment and Plan: Continue levothyroxine TSH 4.020 T4 1.38 Increase to 87.5mcg Trend and redraw in 6 weeks Could be contributing to the frequent falls and weakness (7) GERD (gastroesophageal reflux disease): Code(s): K21.9 - Gastro-esophageal reflux disease without esophagitis Status: Acute Assessment and Plan: Continue with pantoprazole (8) Pulmonary edema: Code(s): J81.1 - Chronic pulmonary edema Status: Acute Assessment and Plan: Chest xray shows pulmonary vascular congestion One dose of lasix given Trend urine output Most like secondary to the fluids he received for the low sodium (9) Adrenal insufficiency: Code(s): E27.40 - Unspecified adrenocortical insufficiency Status: Acute Assessment and Plan: Most likely the cause of the hyponatremia cortisol levels low initiated Florinef Refer to outpatient health safety manager DS: Summary Hospital Course Hospital Course: Patient is 72-year-old male with a past medical history of gout, iron deficiency anemia, COPD who presented to the ED with complaints of lower extremity edema that had been get worse over the last few days.? Sodium was 129 upon arrival and fallen even further to 127.? urine labs obtained and indicated pre-renal. IV fluids were given and sodium increased to 131. Patient was given 1 dose of Lasix after chest xray indicated pulmonary vascular congestion.? Fluid restriction was ordered. PT/OT did evaluate patient and it was indicated that he would benefit from rehab. Nephrology was consulted and labs indicated adrenal insufficiency. Florinef has been initiated and will have patient follow up outpatient with an health safety manager. has been present and updated throughout the visit. Currently patient is doing well. He is stable for DC at this time. Pt is being discharged to rehab for further strengthening and endurance. Call and made appointment for follow up with his primary. Also asked the primary to initiate a referral to an health safety manager. Spoke with Julian, and another lady. I reiterated with the family to follow up as the ladies in the office seems to be confuse
--- NOTE | 2022-10-19 09:15 | P.DS_ITS ---
DS: Admitting Diagnosis Discharge Date 10/19/22 0915 Admitting Diagnosis Hyponatremia, adrenal insufficiency DS: Discharge Diagnosis Discharge Diagnosis (1) Physical debility: Code(s): R53.81 - Other malaise Status: Acute Assessment and Plan: * PT OT evaluation which greatly be appreciated * Care management for rehab place * home health at home failed * feels that the patient requires more help at home then she can provide for her . * shuffling gait and Parkinson's was evaluated * thiamine pending * history of alcoholism quit in 1999 (2) Hyponatremia: Code(s): E87.1 - Hypo-osmolality and hyponatremia Status: Acute Assessment and Plan: * Na at admission 129, currently 130 * BNP slightly elevated 228 * FENa score FENa 0.90% indicating pre renal * Continue NS at this time * Continue fluid restriction * Cortisol is 0.33, low could be the cause of the hyponatremia * Trend sodium * Nephrology consulted given the quick reoccurrence (3) Gait instability: Code(s): R26.81 - Unsteadiness on feet Status: Acute Assessment and Plan: * PT OT evaluation greatly be appreciated * Wanting rehab for strengthening and endurance (4) Gout: Code(s): M10.9 - Gout, unspecified Status: Acute Assessment and Plan: * Continue with allopurinol * Chronic and stable at this time (5) Hyperlipidemia: Code(s): E78.5 - Hyperlipidemia, unspecified Status: Chronic Assessment and Plan: * Continue with Lipitor (6) Hypothyroidism: Code(s): E03.9 - Hypothyroidism, unspecified Status: Chronic Assessment and Plan: * Continue levothyroxine * TSH 4.020 T4 1.38 * Increase to 87.5mcg * Trend and redraw in 6 weeks * Could be contributing to the frequent falls and weakness (7) GERD (gastroesophageal reflux disease): Code(s): K21.9 - Gastro-esophageal reflux disease without esophagitis Status: Acute Assessment and Plan: * Continue with pantoprazole (8) Pulmonary edema: Code(s): J81.1 - Chronic pulmonary edema Status: Acute Assessment and Plan: * Chest xray shows pulmonary vascular congestion * One dose of lasix given * Trend urine output * Most like secondary to the fluids he received for the low sodium (9) Adrenal insufficiency: Code(s): E27.40 - Unspecified adrenocortical insufficiency Status: Acute Assessment and Plan: * Most likely the cause of the hyponatremia * cortisol levels low * initiated Florinef * Refer to outpatient furnace packer DS: Summary Hospital Course Hospital Course: Patient is 72-year-old male with a past medical history of gout, iron deficiency anemia, COPD who presented to the ED with complaints of lower extremity edema that had been get worse over the last few days.? Sodium was 129 upon arrival and fallen even further to 127.? urine labs obtained and indicated pre-renal. IV fluids were given and sodium increased to 131. Patient was given 1 dose of Lasix after chest xray indicated pulmonary vascular congestion.? Fluid restriction was ordered. PT
[2022-10-19] MEDS: UMECLIDINIUM/VILANTEROL 62.5-25 MCG ELLIPTA 1 PUFF INHALATION (09:30)
[2022-10-19 09:31] VITALS: O2SAT 96
[2022-10-19] MEDS: FUROSEMIDE INJ 40 MG/4 ML VIAL IV PUSH (10:38)
[2022-10-19 12:13] LABS: EDCOVIDSCREEN Negative (Negative)
[2022-10-19 18:35] LABS: Osmolality, Urine 474 mOsm/kg (50-1200)
[2022-10-21 18:21] LABS: Albumin 3.1 g/dL (3.8-4.8); Alpha 1 Globulin 0.3 g/dL (0.2-0.3); Alpha 2 Globulin 0.8 g/dL (0.5-0.9); Beta 1 Globulin 0.4 g/dL (0.4-0.6); Gamma Globulin 0.5 g/dL (0.8-1.7); Protein, Total 5.3 g/dL (6.1-8.1)
== END 2022-10-19 13:15 ==
LOC: ANHED 18:29 → ANH3MEDSUR 20:00
PROVIDERS: Internal Medicine Nephrology; Nurse Practitioner; Admitting Provider Internal Medicine; Emergency Provider Emergency Medicine; PCP Physician Assistant Medical; Visit Provider Chiropractor
DX: R53.81 Other malaise (principal); E87.1 Hypo-osmolality and hyponatremia; R26.81 Unsteadiness on feet; R53.1 Weakness; M10.9 Gout, unspecified; E78.5 Hyperlipidemia, unspecified; E03.9 Hypothyroidism, unspecified; K21.9 Gastro-esophageal reflux disease without esophagitis; Z20.822 Contact with and (suspected) exposure to COVID-19; I12.0 Hypertensive chronic kidney disease with stage 5 chronic kidney disease or end stage renal disease; E11.22 Type 2 diabetes mellitus with diabetic chronic kidney disease; J81.1 Chronic pulmonary edema; N18.6 End stage renal disease; Z99.2 Dependence on renal dialysis; J44.9 Chronic obstructive pulmonary disease, unspecified; R91.8 Other nonspecific abnormal finding of lung field; E27.40 Unspecified adrenocortical insufficiency; R79.89 Other specified abnormal findings of blood chemistry; I11.9 Hypertensive heart disease without heart failure; D50.9 Iron deficiency anemia, unspecified; I25.10 Atherosclerotic heart disease of native coronary artery without angina pectoris; R41.3 Other amnesia; Z85.01 Personal history of malignant neoplasm of esophagus; Z87.891 Personal history of nicotine dependence; Z86.73 Personal history of transient ischemic attack (TIA), and cerebral infarction without residual deficits; Z79.82 Long term (current) use of aspirin; Z79.899 Other long term (current) drug therapy; Z82.49 Family history of ischemic heart disease and other diseases of the circulatory system
CPT/HCPCS: 36415; 71045; 80048; 80053; 82533; 82570; 83605; 83615; 83735; 83880; 83930; 83935; 84155; 84165; 84300; 84425; 84439; 84443; 84480; 84540; 85025; 87426; 94640; 96361; 96372; 96374; 96375; 97110; 97116; 97161; 97165; 97530; 99285; A9270; C9803; G0378; J0834; J1650; J1940; J7030